=== PATIENT | female | born 1960 | race African-American/Black ===

== ENCOUNTER 2017-08-20 08:35 | Inpatient (IN) | payer OTHER ==
[2017-08-20 10:45] VITALS: BMI 26.3
--- NOTE | 2017-08-20 12:13 | HP ---
CIWA Score - CIWA Score Nausea/Vomitin-No Nausea/No Vomiting Muscle Tremors: 4-Moderate,w/Arms Extend Anxiety: 4-Mod. Anxious/Guarded Agitation: 2 Paroxysmal Sweats: 3 Orientation: 0-Oriented Tacttile Disturbances: 0-None Auditory Disturbances: 0-None Visual Disturbances: 0-None Headache: 3-Moderate CIWA-Ar Total Score: 16 Admission ROS S - HPI Chief Complaint: "I need to Detox." Patient is here to Detox from Alcohol. Allergies/Adverse Reactions: Allergies Allergy/AdvReac Type Severity Reaction Status Date / Time No Known Drug Allergies Allergy Verified 08/20/17 11:15 pork AdvReac Uncoded 08/20/17 11:15 History of Present Illness: Patient is a 56 YO female here to Detox from Alcohol. Patient has had one previous Detox admission at [facility] (02/2016). Patient had a Detox admission in [facility] (unable to recall name of facility) in 2017. Longest period of sobriety in recent years: (2007 - 2010). Exam Limitations: No Limitations - Ebola screening Have you traveled outside of the country in the last 21 days: No (N) Have you had contact with anyone from an Ebola affected area: No Have you been sick,other than usual withdrawal symptoms: No Do you have a fever: No - Review of Systems Constitutional: Diaphoresis, Fever, Malaise, Night Sweats, Changes in sleep EENT: reports: No Symptoms Reported Respiratory: reports: Cough Cardiac: reports: No Symptoms Reported GI: reports: No Symptoms Reported : reports: No Symptoms Reported Musculoskeletal: reports: Neck Pain Integumentary: reports: No Symptoms Reported Neuro: reports: Headache, Tremors Endocrine: reports: No Symptoms Reported Hematology: reports: No Symptoms Reported Psychiatric: reports: No Sypmtoms Reported, Judgement Intact, Mood/Affect Appropiate, Orientated x3, Anxious, Depressed (Meds. in past, none currently.) Other Systems: Reviewed and Negative Patient History - Patient Medical History Hx Anemia: No Hx Asthma: Yes (Uses MDI.) Hx Chronic Obstructive Pulmonary Disease (COPD): No Hx Cancer: Yes (Cervical, 1995, Partial hysterectomy, laser treatment.) Hx Cardiac Disorders: No Hx Congestive Heart Failure: No Hx Hypertension: Yes (On med.) Hx Hypercholesterolemia: No Hx Pacemaker: No HX Cerebrovascular Accident: No Hx Seizures: No Hx Dementia: No Hx Diabetes: No Hx Gastrointestinal Disorders: No Hx Liver Disease: No Hx Genitourinary Disorders: No Hx Sexually Transmitted Disorders: No Hx Renal Disease (ESRD): No Hx Thyroid Disease: No Hx Human Immunodeficiency Virus (HIV): No (Last tested: 06/2017: NEGATIVE.) Hx Hepatitis C: No (Never Tested.) Hx Depression: Yes (Meds. in past, none currently.) Hx Suicide Attempt: No (PATIENT DENIES CURRENT SI / HI.) Hx Bipolar Disorder: Yes (Meds. in past, none currently.) Hx Schizophrenia: No Other Medical History: DENIES. - Patient Surgical History Past Surgical History: No Hx Neurologic Surgery: No Hx Cataract Extraction: Yes (LEFT EYE, 2009.) Hx Cardiac Surgery: No Hx Lung Surgery: No Hx Breast Surgery: No Hx Breast Biopsy: No Hx Abdominal Surgery: Yes (VAGINAL HERNIA (2); 1995, 1996) Hx Appendectomy: No Hx Cholecystectomy: No Hx Genitourinary Surgery: No Hx Section: No Hx Orthopedic Surgery: No Hx Hysterectomy: Yes (PARTIAL, 1994.) Other Surgical History: CERVICAL CA X 2 1994 PARTIAL HYSTERECTOMY Anesthesia Reaction: No - PPD History Previous Implant?: Yes Documented Results: Negative w/o proof Implanted On Prior [facility] Admission?: Yes Date: 02/29/16 PPD to be Administered?: Yes - Reproductive History Patient is a Female of Child Bearing Age (11 -55 yrs old): No LMP comment: 1994. Patient : No - Smoking Cessation Smoking history: Never smoked Have you smoked in the past 12 months: No Cigars Per Day: 0 Hx Chewing Tobacco Use: No Initiated information on smoking cessation: No - Substances Abused Alcohol Route: Oral Frequency: Daily Amount used: 1 PINT VODKA , 07/06OZ BEER Age of first use: 18 Date of Last Use: 08/20/17 Crack Route: Smoking Frequency: Daily Amount used: $30 Age of first use: 25 Date of Last Use: 08/20/17 Family Disease History - Family Disease History Family Disease History: CA: Father (PROSTATE; .), Mother (OVARIAN; .), Brother (PROSTATE; .), Sister (BREAST; . ), Other: Grandparent (ARTHRITIS.) Admission Physical Exam BHS - Vital Signs Vital Signs: Vital Signs - 24 hr 08/20/17 10:35 Temperature 97.4 F L Pulse Rate 77 Respiratory 18 Rate Blood Pressure 157/93 - Physical General Appearance: Yes: No Apparent Distress, Nourished, Appropriately Dressed , Tremorous, Anxious HEENTM: Yes: Hearing grossly Normal, Normocephalic, Normal Voice, SAMANTHA, Pharynx Normal Respiratory: Yes: Chest Non-Tender, Lungs Clear, No Respiratory Distress, No Accessory Muscle Use Neck: Yes: No masses,lesions,Nodules, Supple, Trachea in good position Breast: Yes: Breast Exam Deferred Cardiology: Yes: Regular Rhythm, Regular Rate, S1, S2 Abdominal: Yes: Normal Bowel Sounds, Non Tender, Flat, Soft Genitourinary: Yes: Within Normal Limits Back: Yes: Normal Inspection Musculoskeletal: Yes: full range of Motion, Gait Steady Extremities: Yes: Normal Capillary Refill, Normal Range of Motion, Non-Tender, Tremors Neurological: Yes: Fully Oriented, Alert, Normal Mood/Affect, Normal Response Integumentary: Yes: Normal Color, Dry, Warm Lymphatic: Yes: Within Normal Limits - Diagnostic (1) Cocaine dependence, uncomplicated Current Visit: Yes Status: Acute (2) Alcohol dependence with withdrawal Current Visit: Yes Status: Acute Qualifiers: Complication of substance-induced condition: uncomplicated Qualified Code(s ): F10.230 - Alcohol dependence with withdrawal, uncomplicated (3) Asthma Current Visit: Yes Status: Chronic Qualifiers: Asthma severity: mild Asthma persistence: intermittent Asthma complication type: uncomplicated Qualified Code(s): J45.20 - Mild intermittent asthma, uncomplicated (4) Hypertension Current Visit: Yes Status: Chronic Qualifiers: Hypertension type: essential hypertension Qualified Code(s): I10 - Essential (primary) hypertension (5) History of cervical cancer Current Visit: Yes Status: Resolved (6) History of partial hysterectomy Current Visit: Yes Status: Resolved Cleared for Admission S - Detox or Rehab [facility] Level of Care: Medically Managed Detox Regimen/Protocol: Librium [facility] Breath Alcohol Content Breath Alcohol Content: 0 Urine Pregancy Test - Result Urine Test Results: Negative- NO Line Present Urine Drug Screen - Results Drug Screen Negative: No Urine Drug Screen Results: MARTIN-Cocaine
[2017-08-20] MEDS ORDERED: MAGNESIUM HYDROX 2400MG/30ML ORAL SUSPENSION 30 ML CUP PO PRN (12:33)
[2017-08-20] MEDS ORDERED: MAGNESIUM CITRATE 300 ML BOTTLE PO PRN (12:33)
[2017-08-20] MEDS ORDERED: chlordiazePOXIDE HCL 25 MG CAPSULE PO PRN (12:33)
[2017-08-20] MEDS ORDERED: MAG HYDROX/AL HYDROX/SIMETH 30 ML UNIT-DOSE CUP PO PRN (12:33)
[2017-08-20] MEDS ORDERED: MENTHOL/PHENOL 1 EACH UD MM PRN (12:33)
[2017-08-20] MEDS ORDERED: IBUPROFEN 400 MG TABLET (FP) PO PRN (12:33)
[2017-08-20] MEDS ORDERED: P-EPHED 60MG/TRIPROLIDI 2.5MG TABLET PO PRN (12:33)
[2017-08-20] MEDS ORDERED: guaiFENesin/D-METHORPHAN HB 10 ML UNIT-DOSE CUPS PO PRN (12:33)
[2017-08-20] MEDS ORDERED: ACETAMINOPHEN 325 MG TABLET (FP) PO PRN (12:33)
[2017-08-20] MEDS ORDERED: LOPERAMIDE HCL 2 MG CAPSULE PO PRN (12:33)
[2017-08-20] MEDS ORDERED: ALBUTEROL SO4 18 GM HFA INHALER IH PRN (12:36)
[2017-08-20] MEDS ORDERED: chlordiazePOXIDE HCL 25 MG CAPSULE PO ONE (12:50)
--- NOTE | 2017-08-20 13:33 | CONSULT ---
[facility] Psychiatric Consult - Data Date of interview: 08/20/17 Admission source: [facility] Identifying data: This is a 56 years old female, mother of two, living with family, unemployed , on SSI with psychiatric hospitalization history, here for Detox from Alcohol and Crack. Substance Abuse History: - Smoking Cessation. Smoking history: Never smoked. Have you smoked in the past 12 months: No. Cigars Per Day: 0. Hx Chewing Tobacco Use: No. Initiated information on smoking cessation: No. - Substances Abused. Alcohol. Route: Oral. Frequency: Daily. Amount used: 1 PINT VODKA , 2/12OZ BEER. Age of first use: 18. Date of Last Use: 08/20/17. Crack. Route: Smoking. Frequency: Daily. Amount used: $30. Age of first use : 25. Date of Last Use: 08/20/17 Medical History: Asthma, HTN, Cervical Cancer history, s/p Hysterectomy. Psychiatric History: Lois reports history of depression withy most recent [id number] admission on [facility] 7 years ago, reports no medications taking prior to admission. As per computer carries Bipolar I Disorder history Physical/Sexual Abuse/Trauma History: Denies Additional Comment: Observation. Detox Unit Care Protocol Mental Status Exam - Mental Status Exam Alert and Oriented to: Place, Person Cognitive Function: Fair Patient Appearance: Well Groomed Mood: Apprehensive Affect: Mood Congruent Patient Behavior: Cooperative Speech Pattern: Appropriate Voice Loudness: Normal Thought Process: Goal Oriented Thought Disorder: Being Controlled Hallucinations: Denies Suicidal Ideation: Denies Homicidal Ideation: Denies Insight/Judgement: Fair Sleep: Difficulty falling asleep Appetite: Fair Muscle strength/Tone: Normal Gait/Station: Normal Additional Comments: Observation. Detox Unit Care Protocol Psychiatric Findings - Problem List ([place] 1, 2,3) (1) Drug-induced mood disorder Current Visit: Yes Status: Acute (2) Alcohol dependence with withdrawal Current Visit: Yes Status: Acute Qualifiers: Complication of substance-induced condition: uncomplicated Qualified Code(s ): F10.230 - Alcohol dependence with withdrawal, uncomplicated (3) Cocaine dependence, uncomplicated Current Visit: Yes Status: Acute (4) Cocaine dependence Current Visit: No Status: Acute Qualifiers: Substance use status: uncomplicated Qualified Code(s): F14.20 - Cocaine dependence, uncomplicated (5) Bipolar 1 disorder, depressed Current Visit: No Status: Suspected - Initial Treatment Plan Initial Treatment Plan: Observation. Detox Unit Care Protocol
[2017-08-20 14:40] LABS: HEMATOCRIT 40.3 % (32.4-45.2); HEMOGLOBIN 13.2 GM/dL (10.7-15.3); MCH 27.2 pg (25.7-33.7); MCHC 32.8 g/dl (32.0-36.0); MEAN CELL VOLUME 82.8 fl (80-96); MEAN PLT VOLUME 9.7 fl (7.5-11.1); PLATELET COUNT 253 K/MM3 (134-434); RBC 4.87 M/mm3 (3.60-5.2); RDW 15.8 % (11.6-15.6); WHITE BLOOD COUNT 5.7 K/mm3 (4.0-10.0)
[2017-08-20 14:46] LABS: ALBUMIN 3.8 g/dl (3.4-5.0); ANION GAP 10 (8-16); BLOOD UREA NITROGEN 15 mg/dL (7-18); CALCIUM 9.3 mg/dL (8.5-10.1); CHLORIDE 106 mmol/L (98-107); CO2 28 mmol/L (21-32); GLUCOSE,RANDOM 86 mg/dL (74-106); POTASSIUM 3.8 mmol/L (3.5-5.1); SGOT/AST 12 U/L (15-37); SGPT/ALT 14 U/L (12-78); SODIUM 144 mmol/L (136-145)
[2017-08-20 14:49] LABS: ALK PHOS 129 U/L (45-117); BILIRUBIN,TOTAL 0.3 mg/dL (0.2-1.0); TOT PROT 7.3 g/dl (6.4-8.2)
--- NOTE | 2017-08-20 15:53 | EKG ---
Test Reason : Blood Pressure : / mmHG Vent. Rate : 076 BPM Atrial Rate : 076 BPM P-R Int : 132 ms QRS Dur : 096 ms QT Int : 432 ms P-R-T Axes : 059 065 052 degrees QTc Int : 486 ms NORMAL SINUS RHYTHM POSSIBLE LEFT ATRIAL ENLARGEMENT LEFT VENTRICULAR HYPERTROPHY PROLONGED QT ABNORMAL ECG NO PREVIOUS ECGS AVAILABLE Confirmed by YANET CASTANEDA MD ([id number]) on 08/20/2017 3:53:09 PM Referred By: Confirmed By:YANET CASTANEDA MD
[2017-08-20] MEDS: chlordiazePOXIDE HCL 25 MG CAPSULE PO SCH ×2 (17:42→22:38)
[2017-08-20] MEDS: THIAMINE HCL 100 MG TABLET (FP) PO SCH (22:38)
[2017-08-21 01:43] LABS: URINE APPEARANCE CLEAR; URINE BILIRUBIN NEGATIVE (<2.0 mg/dL); URINE BLOOD 1+ (NEGATIVE); URINE COLOR YELLOW; URINE GLUCOSE (UA) NEGATIVE (NEGATIVE); URINE KETONE NEGATIVE (NEGATIVE); URINE LEUK ESTERASE NEGATIVE (NEGATIVE); URINE NITRITE NEGATIVE (NEGATIVE); URINE PROTEIN NEGATIVE (NEGATIVE); URINE UROBILINOGEN NEGATIVE mg/dL (0.2-1.0)
[2017-08-21 01:56] LABS: EPI CELLS RARE /HPF (FEW); URINE BACTERIA RARE /hpf (NONE SEEN)
[2017-08-21] MEDS: chlordiazePOXIDE HCL 25 MG CAPSULE PO SCH ×4 (06:58→23:03)
[2017-08-21] MEDS: PRENATAL VITAMINS W/ FOLIC ACID TABLET (FP) PO SCH (10:45)
[2017-08-21] MEDS: amLODIPine BESYLATE 10 MG TABLET (FP) PO SCH (10:45)
[2017-08-21] MEDS: VALSARTAN 160 MG TABLET (UD) PO SCH (10:45)
--- NOTE | 2017-08-21 12:10 | PN ---
S CIWA - CIWA Score Nausea/Vomitin Muscle Tremors: 2 Anxiety: 2 Agitation: 2 Paroxysmal Sweats: 3 Orientation: 0-Oriented Tacttile Disturbances: 1-Very Mild Itch/Numbness Auditory Disturbances: 0-None Visual Disturbances: 0-None Headache: 0-None Present CIWA-Ar Total Score: 12 BHS Progress Note (SOAP) Subjective: interrupted sleep, sweats Objective: 08/21/17 12:09 Vital Signs Temperature 97.7 F 08/21/17 10:00 Pulse Rate 86 08/21/17 10:00 Respiratory Rate 16 08/21/17 10:00 Blood Pressure 141/87 08/21/17 10:00 O2 Sat by Pulse Oximetry (%) Laboratory Tests 08/20/17 08/20/17 08/20/17 12:00 12:00 12:00 WBC 5.7 RBC 4.87 Hgb 13.2 Hct 40.3 MCV 82.8 MCH 27.2 MCHC 32.8 RDW 15.8 H Plt Count 253 MPV 9.7 Sodium 144 Potassium 3.8 Chloride 106 Carbon Dioxide 28 Anion Gap 10 BUN 15 Creatinine 1.0 Creat Clearance w eGFR 57.35 Random Glucose 86 Calcium 9.3 Total Bilirubin 0.3 D AST 12 L ALT 14 Alkaline Phosphatase 129 H Total Protein 7.3 Albumin 3.8 Urine Color Urine Appearance Urine pH Ur Specific [place] Urine Protein Urine Glucose (UA) Urine Ketones Urine Blood Urine Nitrite Urine Bilirubin Urine Urobilinogen Ur Leukocyte Esterase Urine WBC (Auto) Urine RBC (Auto) Ur Epithelial Cells Urine Bacteria RPR Titer Nonreactive 08/21/17 00:37 WBC RBC Hgb Hct MCV MCH MCHC RDW Plt Count MPV Sodium Potassium Chloride Carbon Dioxide Anion Gap BUN Creatinine Creat Clearance w eGFR Random Glucose Calcium Total Bilirubin AST ALT Alkaline Phosphatase Total Protein Albumin Urine Color Yellow Urine Appearance Clear Urine pH 5.0 Ur Specific [place] 1.028 Urine Protein Negative Urine Glucose (UA) Negative Urine Ketones Negative Urine Blood 1+ H Urine Nitrite Negative Urine Bilirubin Negative Urine Urobilinogen Negative Ur Leukocyte Esterase Negative Urine WBC (Auto) 1 Urine RBC (Auto) 15 Ur Epithelial Cells Rare Urine Bacteria Rare RPR Titer pt aox3 in nad ambulating Assessment: 08/21/17 12:10 withdrawal sx's Plan: cont. detox increase fluids
[2017-08-21] MEDS: THIAMINE HCL 100 MG TABLET (FP) PO SCH (23:03)
[2017-08-22] MEDS: chlordiazePOXIDE HCL 25 MG CAPSULE PO SCH ×2 (07:15→10:49)
[2017-08-22] MEDS: VALSARTAN 160 MG TABLET (UD) PO SCH (10:49)
[2017-08-22] MEDS: PRENATAL VITAMINS W/ FOLIC ACID TABLET (FP) PO SCH (10:49)
[2017-08-22] MEDS: amLODIPine BESYLATE 10 MG TABLET (FP) PO SCH (10:49)
--- NOTE | 2017-08-22 16:24 | PN ---
S CIWA - CIWA Score Nausea/Vomitin Muscle Tremors: 3 Anxiety: 3 Agitation: 2 Paroxysmal Sweats: 1-Minimal Palms Moist Orientation: 0-Oriented Tacttile Disturbances: 1-Very Mild Itch/Numbness Auditory Disturbances: 1-Very Mild Visual Disturbances: 0-None Headache: 2-Mild CIWA-Ar Total Score: 16 S Progress Note (SOAP) Subjective: ALERT,IRRITABLE,ANXIOUS,INTERRUPTED SLEEP,TREMOR Objective: 08/22/17 16:23 Vital Signs Temperature 97.7 F 08/22/17 15:19 Pulse Rate 105 H 08/22/17 15:19 Respiratory Rate 18 08/22/17 15:19 Blood Pressure 114/69 08/22/17 15:19 O2 Sat by Pulse Oximetry (%) Laboratory Last Values WBC 5.7 K/mm3 (4.0-10.0) 08/20/17 12:00 RBC 4.87 M/mm3 (3.60-5.2) 08/20/17 12:00 Hgb 13.2 GM/dL (10.7-15.3) 08/20/17 12:00 Hct 40.3 % (32.4-45.2) 08/20/17 12:00 MCV 82.8 fl (80-96) 08/20/17 12:00 MCH 27.2 pg (25.7-33.7) 08/20/17 12:00 MCHC 32.8 g/dl (32.0-36.0) 08/20/17 12:00 RDW 15.8 % (11.6-15.6) H 08/20/17 12:00 Plt Count 253 K/MM3 (134-434) 08/20/17 12:00 MPV 9.7 fl (7.5-11.1) 08/20/17 12:00 Sodium 144 mmol/L (136-145) 08/20/17 12:00 Potassium 3.8 mmol/L (3.5-5.1) 08/20/17 12:00 Chloride 106 mmol/L (98-107) 08/20/17 12:00 Carbon Dioxide 28 mmol/L (21-32) 08/20/17 12:00 Anion Gap 10 (8-16) 08/20/17 12:00 BUN 15 mg/dL (7-18) 08/20/17 12:00 Creatinine 1.0 mg/dL (0.55-1.02) 08/20/17 12:00 Creat Clearance w eGFR 57.35 (>60) 08/20/17 12:00 Random Glucose 86 mg/dL (74-106) 08/20/17 12:00 Calcium 9.3 mg/dL (8.5-10.1) 08/20/17 12:00 Total Bilirubin 0.3 mg/dL (0.2-1.0) D 08/20/17 12:00 AST 12 U/L (15-37) L 08/20/17 12:00 ALT 14 U/L (12-78) 08/20/17 12:00 Alkaline Phosphatase 129 U/L (45-117) H 08/20/17 12:00 Total Protein 7.3 g/dl (6.4-8.2) 08/20/17 12:00 Albumin 3.8 g/dl (3.4-5.0) 08/20/17 12:00 Urine Color Yellow 08/21/17 00:37 Urine Appearance Clear 08/21/17 00:37 Urine pH 5.0 (5.0-8.0) 08/21/17 00:37 Ur Specific [place] 1.028 (1.001-1.035) 08/21/17 00:37 Urine Protein Negative (NEGATIVE) 08/21/17 00:37 Urine Glucose (UA) Negative (NEGATIVE) 08/21/17 00:37 Urine Ketones Negative (NEGATIVE) 08/21/17 00:37 Urine Blood 1+ (NEGATIVE) H 08/21/17 00:37 Urine Nitrite Negative (NEGATIVE) 08/21/17 00:37 Urine Bilirubin Negative (<2.0 mg/dL) 08/21/17 00:37 Urine Urobilinogen Negative mg/dL (0.2-1.0) 08/21/17 00:37 Ur Leukocyte Esterase Negative (NEGATIVE) 08/21/17 00:37 Urine WBC (Auto) 1 /hpf (3-5) 08/21/17 00:37 Urine RBC (Auto) 15 /hpf (0-3) 08/21/17 00:37 Ur Epithelial Cells Rare /HPF (FEW) 08/21/17 00:37 Urine Bacteria Rare /hpf (NONE SEEN) 08/21/17 00:37 RPR Titer Nonreactive (NONREACTIVE) 08/20/17 12:00 Assessment: 08/22/17 16:23 WITHDRAWAL SYMPTOM Plan: CONTINUE DETOX,REPEAT UA
[2017-08-22] MEDS: chlordiazePOXIDE 5 MG CAPSULE PO SCH ×2 (17:56→22:37)
[2017-08-22] MEDS: MELATONIN 5 MG TABLETS PO PRN (22:37)
[2017-08-22] MEDS: THIAMINE HCL 100 MG TABLET (FP) PO SCH (22:37)
[2017-08-23] MEDS: chlordiazePOXIDE 5 MG CAPSULE PO SCH ×2 (06:56→10:20)
--- NOTE | 2017-08-23 09:59 | PN ---
BHS Progress Note (SOAP) Subjective: feeling better no tremor less sweat tolerates food and fluid well Objective: 08/23/17 09:58 Vital Signs Temperature 96.8 F L 08/23/17 07:44 Pulse Rate 66 08/23/17 07:44 Respiratory Rate 18 08/23/17 07:44 Blood Pressure 146/87 08/23/17 07:44 O2 Sat by Pulse Oximetry (%) Laboratory Last Values WBC 5.7 K/mm3 (4.0-10.0) 08/20/17 12:00 RBC 4.87 M/mm3 (3.60-5.2) 08/20/17 12:00 Hgb 13.2 GM/dL (10.7-15.3) 08/20/17 12:00 Hct 40.3 % (32.4-45.2) 08/20/17 12:00 MCV 82.8 fl (80-96) 08/20/17 12:00 MCH 27.2 pg (25.7-33.7) 08/20/17 12:00 MCHC 32.8 g/dl (32.0-36.0) 08/20/17 12:00 RDW 15.8 % (11.6-15.6) H 08/20/17 12:00 Plt Count 253 K/MM3 (134-434) 08/20/17 12:00 MPV 9.7 fl (7.5-11.1) 08/20/17 12:00 Sodium 144 mmol/L (136-145) 08/20/17 12:00 Potassium 3.8 mmol/L (3.5-5.1) 08/20/17 12:00 Chloride 106 mmol/L (98-107) 08/20/17 12:00 Carbon Dioxide 28 mmol/L (21-32) 08/20/17 12:00 Anion Gap 10 (8-16) 08/20/17 12:00 BUN 15 mg/dL (7-18) 08/20/17 12:00 Creatinine 1.0 mg/dL (0.55-1.02) 08/20/17 12:00 Creat Clearance w eGFR 57.35 (>60) 08/20/17 12:00 Random Glucose 86 mg/dL (74-106) 08/20/17 12:00 Calcium 9.3 mg/dL (8.5-10.1) 08/20/17 12:00 Total Bilirubin 0.3 mg/dL (0.2-1.0) D 08/20/17 12:00 AST 12 U/L (15-37) L 08/20/17 12:00 ALT 14 U/L (12-78) 08/20/17 12:00 Alkaline Phosphatase 129 U/L (45-117) H 08/20/17 12:00 Total Protein 7.3 g/dl (6.4-8.2) 08/20/17 12:00 Albumin 3.8 g/dl (3.4-5.0) 08/20/17 12:00 Urine Color Yellow 08/21/17 00:37 Urine Appearance Clear 08/21/17 00:37 Urine pH 5.0 (5.0-8.0) 08/21/17 00:37 Ur Specific [place] 1.028 (1.001-1.035) 08/21/17 00:37 Urine Protein Negative (NEGATIVE) 08/21/17 00:37 Urine Glucose (UA) Negative (NEGATIVE) 08/21/17 00:37 Urine Ketones Negative (NEGATIVE) 08/21/17 00:37 Urine Blood 1+ (NEGATIVE) H 08/21/17 00:37 Urine Nitrite Negative (NEGATIVE) 08/21/17 00:37 Urine Bilirubin Negative (<2.0 mg/dL) 08/21/17 00:37 Urine Urobilinogen Negative mg/dL (0.2-1.0) 08/21/17 00:37 Ur Leukocyte Esterase Negative (NEGATIVE) 08/21/17 00:37 Urine WBC (Auto) 1 /hpf (3-5) 08/21/17 00:37 Urine RBC (Auto) 15 /hpf (0-3) 08/21/17 00:37 Ur Epithelial Cells Rare /HPF (FEW) 08/21/17 00:37 Urine Bacteria Rare /hpf (NONE SEEN) 08/21/17 00:37 RPR Titer Nonreactive (NONREACTIVE) 08/20/17 12:00 lab noted Assessment: 08/23/17 09:58 mild withdrawal sx Plan: medically supervised detox
[2017-08-23] MEDS: PRENATAL VITAMINS W/ FOLIC ACID TABLET (FP) PO SCH (10:20)
[2017-08-23] MEDS: amLODIPine BESYLATE 10 MG TABLET (FP) PO SCH (10:20)
[2017-08-23] MEDS: VALSARTAN 160 MG TABLET (UD) PO SCH (10:20)
[2017-08-23] MEDS: chlordiazePOXIDE HCL 10 MG CAPSULE PO SCH ×2 (17:55→22:12)
[2017-08-23] MEDS: MELATONIN 5 MG TABLETS PO PRN (22:12)
[2017-08-23] MEDS: THIAMINE HCL 100 MG TABLET (FP) PO SCH (22:12)
[2017-08-24] MEDS: chlordiazePOXIDE HCL 10 MG CAPSULE PO SCH (05:43)
[2017-08-24 06:06] VITALS: BP 125/74; PULSE 74; TEMP 97.5
--- NOTE | 2017-08-24 08:48 | DS ---
[facility] Detox Discharge Summary Admission Date: 08/20/17 Discharge Date: 08/24/17 - History Present History: Alcohol Dependence Additional Comments: patient left the facility prior to the resume writer arrived to the unit - Physical Exam Results Vital Signs: Vital Signs Temperature 97.5 F L 08/24/17 06:00 Pulse Rate 74 08/24/17 06:00 Respiratory Rate 18 08/24/17 06:00 Blood Pressure 125/74 08/24/17 06:00 O2 Sat by Pulse Oximetry (%) Pertinent Admission Physical Exam Findings: withdrawal sx Vital Signs Temperature 97.5 F L 08/24/17 06:00 Pulse Rate 74 08/24/17 06:00 Respiratory Rate 18 08/24/17 06:00 Blood Pressure 125/74 08/24/17 06:00 O2 Sat by Pulse Oximetry (%) Laboratory Last Values WBC 5.7 K/mm3 (4.0-10.0) 08/20/17 12:00 RBC 4.87 M/mm3 (3.60-5.2) 08/20/17 12:00 Hgb 13.2 GM/dL (10.7-15.3) 08/20/17 12:00 Hct 40.3 % (32.4-45.2) 08/20/17 12:00 MCV 82.8 fl (80-96) 08/20/17 12:00 MCH 27.2 pg (25.7-33.7) 08/20/17 12:00 MCHC 32.8 g/dl (32.0-36.0) 08/20/17 12:00 RDW 15.8 % (11.6-15.6) H 08/20/17 12:00 Plt Count 253 K/MM3 (134-434) 08/20/17 12:00 MPV 9.7 fl (7.5-11.1) 08/20/17 12:00 Sodium 144 mmol/L (136-145) 08/20/17 12:00 Potassium 3.8 mmol/L (3.5-5.1) 08/20/17 12:00 Chloride 106 mmol/L (98-107) 08/20/17 12:00 Carbon Dioxide 28 mmol/L (21-32) 08/20/17 12:00 Anion Gap 10 (8-16) 08/20/17 12:00 BUN 15 mg/dL (7-18) 08/20/17 12:00 Creatinine 1.0 mg/dL (0.55-1.02) 08/20/17 12:00 Creat Clearance w eGFR 57.35 (>60) 08/20/17 12:00 Random Glucose 86 mg/dL (74-106) 08/20/17 12:00 Calcium 9.3 mg/dL (8.5-10.1) 08/20/17 12:00 Total Bilirubin 0.3 mg/dL (0.2-1.0) D 08/20/17 12:00 AST 12 U/L (15-37) L 08/20/17 12:00 ALT 14 U/L (12-78) 08/20/17 12:00 Alkaline Phosphatase 129 U/L (45-117) H 08/20/17 12:00 Total Protein 7.3 g/dl (6.4-8.2) 08/20/17 12:00 Albumin 3.8 g/dl (3.4-5.0) 08/20/17 12:00 Urine Color Yellow 08/21/17 00:37 Urine Appearance Clear 08/21/17 00:37 Urine pH 5.0 (5.0-8.0) 08/21/17 00:37 Ur Specific [place] 1.028 (1.001-1.035) 08/21/17 00:37 Urine Protein Negative (NEGATIVE) 08/21/17 00:37 Urine Glucose (UA) Negative (NEGATIVE) 08/21/17 00:37 Urine Ketones Negative (NEGATIVE) 08/21/17 00:37 Urine Blood 1+ (NEGATIVE) H 08/21/17 00:37 Urine Nitrite Negative (NEGATIVE) 08/21/17 00:37 Urine Bilirubin Negative (<2.0 mg/dL) 08/21/17 00:37 Urine Urobilinogen Negative mg/dL (0.2-1.0) 08/21/17 00:37 Ur Leukocyte Esterase Negative (NEGATIVE) 08/21/17 00:37 Urine WBC (Auto) 1 /hpf (3-5) 08/21/17 00:37 Urine RBC (Auto) 15 /hpf (0-3) 08/21/17 00:37 Ur Epithelial Cells Rare /HPF (FEW) 03/30/18 00:37 Urine Bacteria Rare /hpf (NONE SEEN) 08/21/17 00:37 RPR Titer Nonreactive (NONREACTIVE) 08/20/17 12:00 lab noted - Treatment Hospital Course: Detox Protocol Followed, Detoxed Safely, Responded well, Discharged Condition Good, Rehab Referral Accepted Patient has Accepted a Rehab Referral to: [facility] - Medication Discharge Medications: Ambulatory Orders Albuterol Sulfate Inhaler - [Ventolin HFA Inhaler -] 1 - 2 inh PO Q4H PRN #1 inhaler 08/23/17 Amlodipine Besylate/Valsartan [Amlodipine-Valsartan 10-320 mg] 1 each PO DAILY # 30 tablet 08/23/17 - Diagnosis (1) Alcohol dependence with withdrawal Status: Acute Qualifiers: Complication of substance-induced condition: uncomplicated Qualified Code(s ): F10.230 - Alcohol dependence with withdrawal, uncomplicated (2) Asthma Status: Chronic Qualifiers: Asthma severity: mild Asthma persistence: intermittent Asthma complication type: uncomplicated Qualified Code(s): J45.20 - Mild intermittent asthma, uncomplicated (3) Hypertension Status: Chronic Qualifiers: Hypertension type: essential hypertension Qualified Code(s): I10 - Essential (primary) hypertension - AMA Did Patient Leave Against Medical Advice: No
== END 2017-08-24 07:09 | disposition home or self-care (01) | DRG 774 ==
LOC: YASAS 08:35 → Y6N 12:30
PROVIDERS: ADMIT Internal Medicine; ATTEND Internal Medicine
PROC: HZ2ZZZZ Detoxification Services for Substance Abuse Treatment (ICD-10-PCS; principal; 2017-08-20)
DX: F10.230 Alcohol dependence with withdrawal, uncomplicated (principal); F14.20 Cocaine dependence, uncomplicated; F19.24 Other psychoactive substance dependence with psychoactive substance-induced mood disorder; F31.9 Bipolar disorder, unspecified; I10 Essential (primary) hypertension; J45.20 Mild intermittent asthma, uncomplicated; Z85.41 Personal history of malignant neoplasm of cervix uteri; Z90.710 Acquired absence of both cervix and uterus
CPT/HCPCS: 36415; 80053; 81003; 81015; 85027; 86593; 93005; 93010

== ENCOUNTER 2017-10-06 08:17 | Inpatient (IN) | payer OTHER ==
[2017-10-06 09:30] VITALS: BMI 27.1
--- NOTE | 2017-10-06 12:10 | HP ---
CIWA Score - CIWA Score Nausea/Vomitin Muscle Tremors: 3 Anxiety: 3 Agitation: 3 Paroxysmal Sweats: 2 Orientation: 0-Oriented Tacttile Disturbances: 1-Very Mild Itch/Numbness Auditory Disturbances: 1-Very Mild Visual Disturbances: 0-None Headache: 2-Mild CIWA-Ar Total Score: 18 Admission ROS BHS - HPI Chief Complaint: i need help to stop drinking alcohol and cocaine Allergies/Adverse Reactions: Allergies Allergy/AdvReac Type Severity Reaction Status Date / Time No Known Allergies Allergy Verified 10/06/17 09:43 History of Present Illness: this 56 years old female with alcohol and cocaine dependence,withdrawal symptom, seeking detox,last treatment [facility] 08/20/17 to 08/24/17 hypertension on med bipolar disorder,insomnia,no medication longest period of sobriety 3 years Exam Limitations: No Limitations - Ebola screening Have you traveled outside of the country in the last 21 days: No Have you had contact with anyone from an Ebola affected area: No Have you been sick,other than usual withdrawal symptoms: No - Review of Systems Constitutional: Loss of Appetite, Malaise, Night Sweats, Changes in sleep, Weakness EENT: reports: Nose Congestion Respiratory: reports: Other (asthma) Cardiac: reports: No Symptoms Reported GI: reports: Nausea, Abdominal cramping : reports: No Symptoms Reported Musculoskeletal: reports: Back Pain, Muscle Pain Integumentary: reports: Dryness Endocrine: reports: No Symptoms Reported Hematology: reports: No Symptoms Reported Psychiatric: reports: No Sypmtoms Reported, Judgement Intact, Mood/Affect Appropiate, Orientated x3, other (bipolar disorder) Patient History - Patient Medical History Hx Anemia: No Hx Asthma: Yes Hx Chronic Obstructive Pulmonary Disease (COPD): No Hx Cancer: Yes (Cervical, 1995, Partial hysterectomy, laser treatment.) Hx Cardiac Disorders: Yes Hx Congestive Heart Failure: No Hx Hypertension: Yes (ON MEDICATIONS) Hx Hypercholesterolemia: No Hx Pacemaker: No HX Cerebrovascular Accident: No Hx Seizures: No Hx Dementia: No Hx Diabetes: No Hx Gastrointestinal Disorders: No Hx Liver Disease: No Hx Genitourinary Disorders: No Hx Sexually Transmitted Disorders: No Hx Renal Disease (ESRD): No Hx Thyroid Disease: No Hx Human Immunodeficiency Virus (HIV): No (Last tested: 06/2017: NEGATIVE.) Hx Hepatitis C: No Hx Depression: Yes Hx Suicide Attempt: No Hx Bipolar Disorder: Yes (Meds. in past, none currently.) Hx Schizophrenia: No Other Medical History: no suicidal,no homicidal - Patient Surgical History Past Surgical History: Yes Hx Neurologic Surgery: No Hx Cataract Extraction: Yes (LEFT EYE, 2009.) Hx Cardiac Surgery: No Hx Lung Surgery: No Hx Breast Surgery: No Hx Breast Biopsy: No Hx Abdominal Surgery: Yes (VAGINAL HERNIA (2); 1995, 1996) Hx Appendectomy: No Hx Cholecystectomy: No Hx Genitourinary Surgery: No Hx Section: No Hx Orthopedic Surgery: No Hx Hysterectomy: Yes (PARTIAL, 1994.) Other Surgical History: CERVICAL CA X 2 1994 PARTIAL HYSTERECTOMY Anesthesia Reaction: No - PPD History Previous Implant?: Yes Documented Results: Negative w/proof Implanted On Prior [facility] Admission?: Yes Date: 08/22/17 Results: NEGATIVE PPD to be Administered?: No - Reproductive History Last Menstrual Period: 10/22/94 Patient : No - Smoking Cessation Smoking history: Never smoked Have you smoked in the past 12 months: No Cigars Per Day: 0 Hx Chewing Tobacco Use: No - Substance & Tx. History Hx Alcohol Use: Yes Hx Substance Use: Yes Substance Use Type: Alcohol, Cocaine - Substances Abused Alcohol Route: Oral Frequency: Daily Amount used: 2 bottles of 40 ounces beer: 2 (12 OZ CANS OF BEER), 1/2 PINT OF RUM/VODKA Age of first use: 18 Date of Last Use: 10/06/17 Cocaine Route: Smoking Frequency: Daily Amount used: 5 BAGS DAILY Age of first use: 25 Date of Last Use: 10/06/17 Family Disease History - Family Disease History Family Disease History: CA: Father (PROSTATE; .), Mother (OVARIAN; .), Brother (PROSTATE; .), Sister (BREAST; . ), Other: Grandparent (ARTHRITIS.) Admission Physical Exam S - Vital Signs Vital Signs: Vital Signs - 24 hr 10/06/17 09:19 Temperature 98.3 F Pulse Rate 77 Respiratory 20 Rate Blood Pressure 144/85 - Physical General Appearance: Yes: Moderate Distress, Tremorous, Irritable, Sweating, Anxious HEENTM: Yes: Normal ENT Inspection, SAMANTHA, Pharynx Normal Respiratory: Yes: Within Normal Limits, Lungs Clear, Normal Breath Sounds Neck: Yes: Within Normal Limits, Supple, Trachea in good position Breast: Yes: Breast Exam Deferred Cardiology: Yes: Within Normal Limits, Regular Rhythm, Regular Rate, S1, S2, Murmur Abdominal: Yes: Within Normal Limits, Normal Bowel Sounds, Non Tender, Soft Genitourinary: Yes: Within Normal Limits Back: Yes: Muscle Spasm Musculoskeletal: Yes: full range of Motion, Back pain, Muscle Pain Extremities: Yes: Within Normal Limits, Tremors Neurological: Yes: Within Normal Limits, porcelain enameler II-XII NML intact, Fully Oriented, Alert, Motor Strength 5/5 Integumentary: Yes: Dry Lymphatic: Yes: Within Normal Limits - Diagnostic (1) Alcohol dependence with withdrawal Current Visit: Yes Status: Acute Qualifiers: Complication of substance-induced condition: uncomplicated Qualified Code(s ): F10.230 - Alcohol dependence with withdrawal, uncomplicated (2) Cocaine dependence, uncomplicated Current Visit: No Status: Acute (3) Arthritis Current Visit: No Status: Chronic (4) Asthma Current Visit: No Status: Chronic Qualifiers: Asthma severity: mild Asthma persistence: intermittent Asthma complication type: uncomplicated Qualified Code(s): J45.20 - Mild intermittent asthma, uncomplicated (5) Chronic back pain Current Visit: No Status: Chronic Qualifiers: Back pain location: low back pain Back pain laterality: unspecified Sciatica presence: without sciatica Qualified Code(s): M54.5 - Low back pain; G89.29 - Other chronic pain; G89.29 - Other chronic pain (6) Heart murmur previously undiagnosed Current Visit: No Status: Chronic (7) Hypertension Current Visit: No Status: Chronic Qualifiers: Hypertension type: essential hypertension Qualified Code(s): I10 - Essential (primary) hypertension (8) Bipolar 1 disorder, depressed Current Visit: No Status: Suspected Cleared for Admission S - Detox or Rehab [facility] Level of Care: Medically Managed Detox Regimen/Protocol: Librium [facility] Breath Alcohol Content Breath Alcohol Content: 0 Urine Pregancy Test - Result Urine Test Results: Negative- NO Line Present Urine Drug Screen - Results Drug Screen Negative: No Urine Drug Screen Results: MARTIN-Cocaine
[2017-10-06] MEDS ORDERED: MENTHOL/PHENOL 1 EACH UD MM PRN (12:19)
[2017-10-06] MEDS ORDERED: guaiFENesin/D-METHORPHAN HB 10 ML UNIT-DOSE CUPS PO PRN (12:19)
[2017-10-06] MEDS ORDERED: chlordiazePOXIDE HCL 25 MG CAPSULE PO PRN (12:19)
[2017-10-06] MEDS ORDERED: MAGNESIUM HYDROX 2400MG/30ML ORAL SUSPENSION 30 ML CUP PO PRN (12:19)
[2017-10-06] MEDS ORDERED: P-EPHED 60MG/TRIPROLIDI 2.5MG TABLET PO PRN (12:19)
[2017-10-06] MEDS ORDERED: hydrOXYzine PAMOATE 50 MG CAPSULE (FP) PO PRN (12:19)
[2017-10-06] MEDS ORDERED: MAGNESIUM CITRATE 300 ML BOTTLE PO PRN (12:19)
[2017-10-06] MEDS ORDERED: MAG HYDROX/AL HYDROX/SIMETH 30 ML UNIT-DOSE CUP PO PRN (12:19)
[2017-10-06] MEDS ORDERED: IBUPROFEN 400 MG TABLET (FP) PO PRN (12:19)
[2017-10-06] MEDS ORDERED: LOPERAMIDE HCL 2 MG CAPSULE PO PRN (12:19)
[2017-10-06] MEDS ORDERED: ACETAMINOPHEN 325 MG TABLET (FP) PO PRN (12:19)
[2017-10-06] MEDS ORDERED: ALBUTEROL SO4 18 GM HFA INHALER IH PRN (12:21)
[2017-10-06] MEDS ORDERED: chlordiazePOXIDE HCL 25 MG CAPSULE PO ONE (13:15)
[2017-10-06] MEDS ORDERED: cloNIDine HCL 0.1 MG TABLET PO ONE (14:00)
--- NOTE | 2017-10-06 16:49 | CONSULT ---
[facility] Psychiatric Consult - Data Date of interview: 10/06/17 Admission source: [facility] Identifying data: Patient is a 56 year old female, mother of two, unemployed, living with , and supported by [facility]. This is one of multiple admissions for patient. Patient admitted to for alcohol and cocaine dependence. Substance Abuse History: Following information confirmed with Ms. Jacobo: Smoking Cessation. Smoking history: Never smoked. Have you smoked in the past 12 months: No. Cigars Per Day: 0. Hx Chewing Tobacco Use: No. - Substance & Tx. History. Hx Alcohol Use: Yes. Hx Substance Use: Yes. Substance Use Type: Alcohol, Cocaine. - Substances Abused. Alcohol. Route: Oral. Frequency: Daily. Amount used: 2 bottles of 40 ounces beer: 2 (12 OZ CANS OF BEER), 1/2 PINT OF RUM/VODKA. Age of first use: 18. Date of Last Use: 10/06/17. Cocaine. Route: Smoking. Frequency: Daily. Amount used: 5 BAGS DAILY. Age of first use: 25. Date of Last Use: 10/06/17 Medical History: cataract extraction left eye 2009, Vaginal hernia -1995, 1996, Cervical, 1994, Partial hysterectomy, laser treatment, Hypertension Psychiatric History: Patient reports three psychiatric hospitalizations, most recently in 2009 at [facility] for depression. Pt. is also know to [facility]. Pt. reports nonadherent to medications and outpatient care. Reports most recently taking psychotophic medications over one year ago. States she has been prescribed trazodone + cymbalta "and other medications." Reports h/ o bipolar disorder. Pt. denies h/o suicide attempt. Physical/Sexual Abuse/Trauma History: Denies. Mental Status Exam - Mental Status Exam Alert and Oriented to: Time, Place, Person Cognitive Function: Good Patient Appearance: Well Groomed Mood: Hopeful Affect: Mood Congruent Patient Behavior: Cooperative Speech Pattern: Appropriate Voice Loudness: Normal Thought Process: Intact, Goal Oriented Thought Disorder: Not Present Hallucinations: Denies Suicidal Ideation: Denies Homicidal Ideation: Denies Insight/Judgement: Poor Sleep: Poorly Appetite: Fair Muscle strength/Tone: Normal Gait/Station: Normal Psychiatric Findings - Problem List ([place] 1, 2,3) (1) Alcohol dependence with withdrawal Current Visit: Yes Status: Acute Qualifiers: Complication of substance-induced condition: uncomplicated Qualified Code(s ): F10.230 - Alcohol dependence with withdrawal, uncomplicated (2) Cocaine dependence Current Visit: Yes Status: Acute Qualifiers: Substance use status: uncomplicated Qualified Code(s): F14.20 - Cocaine dependence, uncomplicated (3) Drug-induced mood disorder Current Visit: Yes Status: Acute (4) Bipolar 1 disorder, depressed Current Visit: No Status: Suspected (5) Insomnia Current Visit: Yes Status: Acute - Initial Treatment Plan Initial Treatment Plan: Psychoeducation provided. Detoxification in progress. Trazodone 50mg qhs ordered. Benefits and side effects discussed. Verbal consent given.
--- NOTE | 2017-10-06 17:09 | EKG ---
Test Reason : Blood Pressure : / mmHG Vent. Rate : 064 BPM Atrial Rate : 064 BPM P-R Int : 138 ms QRS Dur : 098 ms QT Int : 456 ms P-R-T Axes : 020 060 048 degrees QTc Int : 470 ms NORMAL SINUS RHYTHM VOLTAGE CRITERIA FOR LEFT VENTRICULAR HYPERTROPHY ABNORMAL ECG WHEN COMPARED WITH ECG OF 20-AUG-2017 14:11, NO SIGNIFICANT CHANGE WAS FOUND Confirmed by MD IESHA, TAMEKA ([id number]) on 10/06/2017 5:09:02 PM Referred By: Confirmed By:TAMEKA JULIAN MD
[2017-10-06] MEDS: chlordiazePOXIDE HCL 25 MG CAPSULE PO SCH ×2 (18:11→22:12)
[2017-10-06] MEDS: THIAMINE HCL 100 MG TABLET (FP) PO SCH (22:12)
[2017-10-06] MEDS: traZODone HCL 50 MG TABLET (FP) PO SCH (22:12)
[2017-10-06] MEDS: MELATONIN 5 MG TABLETS PO PRN (22:12)
[2017-10-06 23:21] LABS: URINE APPEARANCE TURBID; URINE BILIRUBIN NEGATIVE (<2.0 mg/dL); URINE COLOR YELLOW; URINE GLUCOSE (UA) NEGATIVE (NEGATIVE); URINE KETONE NEGATIVE (NEGATIVE); URINE LEUK ESTERASE NEGATIVE (NEGATIVE); URINE NITRITE NEGATIVE (NEGATIVE); URINE PROTEIN NEGATIVE (NEGATIVE); URINE UROBILINOGEN NEGATIVE mg/dL (0.2-1.0)
[2017-10-06 23:31] LABS: CALCIUM OXALATE CRYSTALS RARE /hpf (NONE SEEN); EPI CELLS RARE /HPF (FEW); URINE MUCUS RARE
[2017-10-07] MEDS: chlordiazePOXIDE HCL 25 MG CAPSULE PO SCH ×4 (06:08→22:55)
[2017-10-07] MEDS ORDERED: PATIENT'S OWN MEDICATION (NON-FORMULARY) (Amlodipine Besylate/Valsartan [Amlodipine-Valsar PO SCH (10:00)
[2017-10-07 10:25] LABS: HEMATOCRIT 42.1 % (32.4-45.2); HEMOGLOBIN 13.8 GM/dL (10.7-15.3); MCH 27.6 pg (25.7-33.7); MCHC 32.8 g/dl (32.0-36.0); MEAN CELL VOLUME 84.1 fl (80-96); MEAN PLT VOLUME 10.1 fl (7.5-11.1); PLATELET COUNT 285 K/MM3 (134-434); WHITE BLOOD COUNT 5.3 K/mm3 (4.0-10.0)
[2017-10-07 10:30] LABS: CHLORIDE 107 mmol/L (98-107); POTASSIUM 4.4 mmol/L (3.5-5.1); SODIUM 143 mmol/L (136-145)
[2017-10-07] MEDS: amLODIPine BESYLATE 10 MG TABLET (FP) PO SCH (10:42)
[2017-10-07] MEDS: VALSARTAN 160 MG TABLET (UD) PO SCH (10:42)
[2017-10-07] MEDS: PRENATAL VITAMINS W/ FOLIC ACID TABLET (FP) PO SCH (10:42)
[2017-10-07 12:00] LABS: ALBUMIN 3.7 g/dl (3.4-5.0); ALK PHOS 131 U/L (45-117); BILIRUBIN,TOTAL 1.3 mg/dL (0.2-1.0); BLOOD UREA NITROGEN 18 mg/dL (7-18); CALCIUM 8.7 mg/dL (8.5-10.1); CREATININE 1.1 mg/dL (0.55-1.02); GLUCOSE,RANDOM 124 mg/dL (74-106); SGOT/AST 14 U/L (15-37); SGPT/ALT 15 U/L (12-78); TOT PROT 7.3 g/dl (6.4-8.2)
--- NOTE | 2017-10-07 12:16 | PN ---
[facility] CIWA - CIWA Score Nausea/Vomitin-Mild Nausea/No Vomiting Muscle Tremors: 4-Moderate,w/Arms Extend Anxiety: 4-Mod. Anxious/Guarded Agitation: 4-Moderately Restless Paroxysmal Sweats: 1-Minimal Palms Moist Orientation: 0-Oriented Tacttile Disturbances: 0-None Auditory Disturbances: 0-None Visual Disturbances: 0-None Headache: 0-None Present CIWA-Ar Total Score: 14 S Progress Note (SOAP) Subjective: swet tremor anxiety restlessness trouble sleep at night gi distress Objective: 10/07/17 12:15 Vital Signs Temperature 96.9 F L 10/07/17 10:26 Pulse Rate 68 10/07/17 10:26 Respiratory Rate 20 10/07/17 10:26 Blood Pressure 142/85 10/07/17 10:26 O2 Sat by Pulse Oximetry (%) Laboratory Last Values WBC 5.3 K/mm3 (4.0-10.0) 10/07/17 06:00 RBC 5.00 M/mm3 (3.60-5.2) 10/07/17 06:00 Hgb 13.8 GM/dL (10.7-15.3) 10/07/17 06:00 Hct 42.1 % (32.4-45.2) 10/07/17 06:00 MCV 84.1 fl (80-96) 10/07/17 06:00 MCH 27.6 pg (25.7-33.7) 10/07/17 06:00 MCHC 32.8 g/dl (32.0-36.0) 10/07/17 06:00 RDW 16.0 % (11.6-15.6) H 10/07/17 06:00 Plt Count 285 K/MM3 (134-434) 10/07/17 06:00 MPV 10.1 fl (7.5-11.1) 10/07/17 06:00 Sodium 143 mmol/L (136-145) 10/07/17 06:00 Potassium 4.4 mmol/L (3.5-5.1) 10/07/17 06:00 Chloride 107 mmol/L (98-107) 10/07/17 06:00 BUN 18 mg/dL (7-18) 10/07/17 06:00 Creatinine 1.1 mg/dL (0.55-1.02) H 10/07/17 06:00 Creat Clearance w eGFR 51.38 (>60) 10/07/17 06:00 Random Glucose 124 mg/dL (74-106) H 10/07/17 06:00 Calcium 8.7 mg/dL (8.5-10.1) 10/07/17 06:00 Total Bilirubin 1.3 mg/dL (0.2-1.0) H D 10/07/17 06:00 AST 14 U/L (15-37) L 10/07/17 06:00 ALT 15 U/L (12-78) 10/07/17 06:00 Alkaline Phosphatase 131 U/L (45-117) H 10/07/17 06:00 Total Protein 7.3 g/dl (6.4-8.2) 10/07/17 06:00 Albumin 3.7 g/dl (3.4-5.0) 10/07/17 06:00 Urine Color Yellow 10/06/17 23:03 Urine Appearance Turbid 10/06/17 23:03 Urine pH 5.0 (5.0-8.0) 10/06/17 23:03 Ur Specific [place] 1.028 (1.001-1.035) 10/06/17 23:03 Urine Protein Negative (NEGATIVE) 10/06/17 23:03 Urine Glucose (UA) Negative (NEGATIVE) 10/06/17 23:03 Urine Ketones Negative (NEGATIVE) 10/06/17 23:03 Urine Blood 1+ (NEGATIVE) H 10/06/17 23:03 Urine Nitrite Negative (NEGATIVE) 10/06/17 23: Urine Bilirubin Negative (<2.0 mg/dL) 10/06/17 23:03 Urine Urobilinogen Negative mg/dL (0.2-1.0) 10/06/17 23:03 Ur Leukocyte Esterase Negative (NEGATIVE) 10/06/17 23:03 Urine WBC (Auto) None /hpf (3-5) 10/06/17 23:03 Urine RBC (Auto) None /hpf (0-3) 10/06/17 23:03 Ur Epithelial Cells Rare /HPF (FEW) 10/06/17 23:03 Calcium Oxalate Crystal Rare /hpf (NONE SEEN) 10/06/17 23:03 Urine Mucus Rare 10/06/17 23:03 lab noted Assessment: 10/07/17 12:16 withdrawal sx Plan: continue detox
[2017-10-07 12:24] LABS: ANION GAP 8 (8-16); CO2 28 mmol/L (21-32)
[2017-10-07] MEDS: traZODone HCL 50 MG TABLET (FP) PO SCH (22:54)
[2017-10-07] MEDS: THIAMINE HCL 100 MG TABLET (FP) PO SCH (22:55)
[2017-10-08] MEDS: chlordiazePOXIDE HCL 25 MG CAPSULE PO SCH ×2 (06:05→10:32)
[2017-10-08] MEDS: PRENATAL VITAMINS W/ FOLIC ACID TABLET (FP) PO SCH (10:32)
[2017-10-08] MEDS: amLODIPine BESYLATE 10 MG TABLET (FP) PO SCH (10:32)
[2017-10-08] MEDS: VALSARTAN 160 MG TABLET (UD) PO SCH (10:33)
--- NOTE | 2017-10-08 12:10 | PN ---
S CIWA - CIWA Score Nausea/Vomitin-Mild Nausea/No Vomiting Muscle Tremors: 3 Anxiety: 3 Agitation: 3 Paroxysmal Sweats: 1-Minimal Palms Moist Orientation: 0-Oriented Tacttile Disturbances: 1-Very Mild Itch/Numbness Auditory Disturbances: 0-None Visual Disturbances: 0-None Headache: 0-None Present CIWA-Ar Total Score: 12 BHS Progress Note (SOAP) Subjective: sweat tremor anxiety restlessness trouble sleep at night Objective: 10/08/17 12:10 Vital Signs Temperature 97.5 F L 10/08/17 10:27 Pulse Rate 75 10/08/17 10:27 Respiratory Rate 16 10/08/17 10:27 Blood Pressure 126/84 10/08/17 10:27 O2 Sat by Pulse Oximetry (%) Laboratory Last Values WBC 5.3 K/mm3 (4.0-10.0) 10/07/17 06:00 RBC 5.00 M/mm3 (3.60-5.2) 10/07/17 06:00 Hgb 13.8 GM/dL (10.7-15.3) 10/07/17 06:00 Hct 42.1 % (32.4-45.2) 10/07/17 06:00 MCV 84.1 fl (80-96) 10/07/17 06:00 MCH 27.6 pg (25.7-33.7) 10/07/17 06:00 MCHC 32.8 g/dl (32.0-36.0) 10/07/17 06:00 RDW 16.0 % (11.6-15.6) H 10/07/17 06:00 Plt Count 285 K/MM3 (134-434) 10/07/17 06:00 MPV 10.1 fl (7.5-11.1) 10/07/17 06:00 Sodium 143 mmol/L (136-145) 10/07/17 06:00 Potassium 4.4 mmol/L (3.5-5.1) 10/07/17 06:00 Chloride 107 mmol/L (98-107) 10/07/17 06:00 Carbon Dioxide 28 mmol/L (21-32) 10/07/17 06:00 Anion Gap 8 (8-16) 10/07/17 06:00 BUN 18 mg/dL (7-18) 10/07/17 06:00 Creatinine 1.1 mg/dL (0.55-1.02) H 10/07/17 06:00 Creat Clearance w eGFR 51.38 (>60) 10/07/17 06:00 Random Glucose 124 mg/dL (74-106) H 10/07/17 06:00 Calcium 8.7 mg/dL (8.5-10.1) 10/07/17 06:00 Total Bilirubin 1.3 mg/dL (0.2-1.0) H D 10/07/17 06:00 AST 14 U/L (15-37) L 10/07/17 06:00 ALT 15 U/L (12-78) 10/07/17 06:00 Alkaline Phosphatase 131 U/L (45-117) H 10/07/17 06:00 Total Protein 7.3 g/dl (6.4-8.2) 10/07/17 06:00 Albumin 3.7 g/dl (3.4-5.0) 10/07/17 06:00 Urine Color Yellow 10/06/17 23:03 Urine Appearance Turbid 10/06/17 23:03 Urine pH 5.0 (5.0-8.0) 10/06/17 23:03 Ur Specific [place] 1.028 (1.001-1.035) 10/06/17 23:03 Urine Protein Negative (NEGATIVE) 10/06/17 23:03 Urine Glucose (UA) Negative (NEGATIVE) 10/06/17 23:03 Urine Ketones Negative (NEGATIVE) 10/06/17 23:03 Urine Blood 1+ (NEGATIVE) H 10/06/17 23:03 Urine Nitrite Negative (NEGATIVE) 10/06/17 23:03 Urine Bilirubin Negative (<2.0 mg/dL) 10/06/17 23:03 Urine Urobilinogen Negative mg/dL (0.2-1.0) 10/06/17 23:03 Ur Leukocyte Esterase Negative (NEGATIVE) 10/06/17 23:03 Urine WBC (Auto) None /hpf (3-5) 10/06/17 23:03 Urine RBC (Auto) None /hpf (0-3) 10/06/17 23:03 Ur Epithelial Cells Rare /HPF (FEW) 10/06/17 23:03 Calcium Oxalate Crystal Rare /hpf (NONE SEEN) 10/06/17 23:03 Urine Mucus Rare 10/06/17 23:03 RPR Titer Nonreactive (NONREACTIVE) 10/07/17 06:00 lab noted Assessment: 10/08/17 12:11 withdrawal sx Plan: continue detox
[2017-10-08] MEDS: chlordiazePOXIDE 5 MG CAPSULE PO SCH ×2 (18:10→22:19)
[2017-10-08] MEDS: THIAMINE HCL 100 MG TABLET (FP) PO SCH (22:19)
[2017-10-08] MEDS: traZODone HCL 50 MG TABLET (FP) PO SCH (22:19)
[2017-10-09] MEDS: chlordiazePOXIDE 5 MG CAPSULE PO SCH ×2 (06:14→10:12)
--- NOTE | 2017-10-09 10:09 | PN ---
BHS Progress Note (SOAP) Subjective: feeling better no sweat no tremor tolerated food and fluid well sleep better at n ight Objective: 10/09/17 10:08 Vital Signs Temperature 97.5 F L 10/09/17 09:53 Pulse Rate 75 10/09/17 09:53 Respiratory Rate 20 10/09/17 09:53 Blood Pressure 144/95 10/09/17 09:53 O2 Sat by Pulse Oximetry (%) Laboratory Last Values WBC 5.3 K/mm3 (4.0-10.0) 10/07/17 06:00 RBC 5.00 M/mm3 (3.60-5.2) 10/07/17 06:00 Hgb 13.8 GM/dL (10.7-15.3) 10/07/17 06:00 Hct 42.1 % (32.4-45.2) 10/07/17 06:00 MCV 84.1 fl (80-96) 10/07/17 06:00 MCH 27.6 pg (25.7-33.7) 10/07/17 06:00 MCHC 32.8 g/dl (32.0-36.0) 10/07/17 06:00 RDW 16.0 % (11.6-15.6) H 10/07/17 06:00 Plt Count 285 K/MM3 (134-434) 10/07/17 06:00 MPV 10.1 fl (7.5-11.1) 10/07/17 06:00 Sodium 143 mmol/L (136-145) 10/07/17 06:00 Potassium 4.4 mmol/L (3.5-5.1) 10/07/17 06:00 Chloride 107 mmol/L (98-107) 10/07/17 06:00 Carbon Dioxide 28 mmol/L (21-32) 10/07/17 06:00 Anion Gap 8 (8-16) 10/07/17 06:00 BUN 18 mg/dL (7-18) 10/07/17 06:00 Creatinine 1.1 mg/dL (0.55-1.02) H 10/07/17 06:00 Creat Clearance w eGFR 51.38 (>60) 10/07/17 06:00 Random Glucose 124 mg/dL (74-106) H 10/07/17 06:00 Calcium 8.7 mg/dL (8.5-10.1) 10/07/17 06:00 Total Bilirubin 1.3 mg/dL (0.2-1.0) H D 10/07/17 06:00 AST 14 U/L (15-37) L 10/07/17 06:00 ALT 15 U/L (12-78) 10/07/17 06:00 Alkaline Phosphatase 131 U/L (45-117) H 10/07/17 06:00 Total Protein 7.3 g/dl (6.4-8.2) 10/07/17 06:00 Albumin 3.7 g/dl (3.4-5.0) 10/07/17 06:00 Urine Color Yellow 10/06/17 23:03 Urine Appearance Turbid 10/06/17 23:03 Urine pH 5.0 (5.0-8.0) 10/06/17 23:03 Ur Specific [place] 1.028 (1.001-1.035) 10/06/17 23:03 Urine Protein Negative (NEGATIVE) 10/06/17 23:03 Urine Glucose (UA) Negative (NEGATIVE) 10/06/17 23:03 Urine Ketones Negative (NEGATIVE) 10/06/17 23:03 Urine Blood 1+ (NEGATIVE) H 10/06/17 23:03 Urine Nitrite Negative (NEGATIVE) 10/06/17 23:03 Urine Bilirubin Negative (<2.0 mg/dL) 10/06/17 23:03 Urine Urobilinogen Negative mg/dL (0.2-1.0) 10/06/17 23:03 Ur Leukocyte Esterase Negative (NEGATIVE) 10/06/17 23:03 Urine WBC (Auto) None /hpf (3-5) 10/06/17 23:03 Urine RBC (Auto) None /hpf (0-3) 10/06/17 23:03 Ur Epithelial Cells Rare /HPF (FEW) 10/06/17 23:03 Calcium Oxalate Crystal Rare /hpf (NONE SEEN) 10/06/17 23:03 Urine Mucus Rare 10/06/17 23:03 RPR Titer Nonreactive (NONREACTIVE) 10/07/17 06:00 lab noted 10/09/17 10:09 gfr 51.28 Assessment: 10/09/17 10:10 mild withdrawal sx renal insufficient Plan: medically supervised detox strong recommend follow up with primary care physician for hypertension and asthma management
[2017-10-09] MEDS: VALSARTAN 160 MG TABLET (UD) PO SCH (10:11)
[2017-10-09] MEDS: PRENATAL VITAMINS W/ FOLIC ACID TABLET (FP) PO SCH (10:12)
[2017-10-09] MEDS: amLODIPine BESYLATE 10 MG TABLET (FP) PO SCH (10:12)
[2017-10-09] MEDS: chlordiazePOXIDE HCL 10 MG CAPSULE PO SCH ×2 (17:38→22:16)
[2017-10-09] MEDS: MELATONIN 5 MG TABLETS PO PRN (22:16)
[2017-10-09] MEDS: THIAMINE HCL 100 MG TABLET (FP) PO SCH (22:16)
[2017-10-09] MEDS: traZODone HCL 50 MG TABLET (FP) PO SCH (22:16)
[2017-10-10] MEDS: chlordiazePOXIDE HCL 10 MG CAPSULE PO SCH (06:06)
[2017-10-10] MEDS: VALSARTAN 160 MG TABLET (UD) PO SCH (06:55)
[2017-10-10] MEDS: amLODIPine BESYLATE 10 MG TABLET (FP) PO SCH (06:56)
[2017-10-10 06:59] VITALS: BP 147/100; PULSE 85; TEMP 97.5
== END 2017-10-10 07:04 | disposition short-term general hospital (02) | DRG 774 ==
LOC: YASAS 08:17 → Y6N 12:34
PROVIDERS: ADMIT Surgery; ATTEND Surgery
PROC: HZ2ZZZZ Detoxification Services for Substance Abuse Treatment (ICD-10-PCS; principal; 2017-10-06)
DX: F10.230 Alcohol dependence with withdrawal, uncomplicated (principal); F14.20 Cocaine dependence, uncomplicated; F31.89 Other bipolar disorder; F19.24 Other psychoactive substance dependence with psychoactive substance-induced mood disorder; G47.00 Insomnia, unspecified; I10 Essential (primary) hypertension; Z85.41 Personal history of malignant neoplasm of cervix uteri; Z90.710 Acquired absence of both cervix and uterus
CPT/HCPCS: 36415; 80053; 81003; 81015; 85027; 86593; 93005; 93010; J0735

== ENCOUNTER 2017-12-07 08:41 | Inpatient (IN) | payer OTHER ==
[2017-12-07 10:02] VITALS: BMI 27.4
--- NOTE | 2017-12-07 10:21 | HP ---
CIWA Score - CIWA Score Nausea/Vomitin-No Nausea/No Vomiting Muscle Tremors: 1-None Visible, but [place] Anxiety: 3 Agitation: 2 Paroxysmal Sweats: 3 Orientation: 0-Oriented Tacttile Disturbances: 0-None Auditory Disturbances: 0-None Visual Disturbances: 0-None Headache: 3-Moderate CIWA-Ar Total Score: 12 Admission ROS S - [facility] Chief Complaint: ETOH WITHDRAWAL SYMPTOMS. Allergies/Adverse Reactions: Allergies Allergy/AdvReac Type Severity Reaction Status Date / Time No Known Drug Allergies Allergy Verified 12/07/17 09:56 NKA Allergy Uncoded 12/07/17 09:56 History of Present Illness: PATIENT PRESENTS WITH ETOH WITHDRAWAL SYMPTOMS. STARTED DRINKING AT AGE 18. DRINKS 1/2 PINT OF LIQUOR AND 4 12 0Z. CANS OF BEER DAILY. LAST DRINK WAS THIS MORNING. DENIES HX OF SEIZURES. LAST DETOX IN 09/[address] [facility]. PATIENT'S LONGEST PERIOD OF SOBRIETY THREE YEARS. PT ALSO SMOKES 5 BAGS OF CRACK/COCAINE DAILY X 3 YEARS. PMH INCLUDES HTN, DEPRESSION AND ASTHMA. DENIES SI/HI AND SUICIDE ATTEMPTS. Exam Limitations: No Limitations - Ebola screening Have you traveled outside of the country in the last 21 days: No Have you had contact with anyone from an Ebola affected area: No Have you been sick,other than usual withdrawal symptoms: No - Review of Systems Constitutional: Chills, Night Sweats, Changes in sleep EENT: reports: No Symptoms Reported Respiratory: reports: No Symptoms reported Cardiac: reports: No Symptoms Reported GI: reports: Poor Fluid Intake, Abdominal cramping : reports: No Symptoms Reported Musculoskeletal: reports: Back Pain Integumentary: reports: Sweating Neuro: reports: Headache, Tremors Endocrine: reports: No Symptoms Reported Hematology: reports: No Symptoms Reported Psychiatric: reports: Orientated x3, Anxious, Depressed Patient History - Patient Medical History Hx Anemia: No Hx Asthma: Yes (ON PUMP) Hx Chronic Obstructive Pulmonary Disease (COPD): No Hx Cancer: Yes (Cervical, 1995, Partial hysterectomy, laser treatment.) Hx Cardiac Disorders: Yes (HTN) Hx Congestive Heart Failure: No Hx Hypertension: Yes (ON MEDICATIONS) Hx Hypercholesterolemia: No Hx Pacemaker: No HX Cerebrovascular Accident: No Hx Seizures: No Hx Dementia: No Hx Diabetes: No Hx Gastrointestinal Disorders: No Hx Liver Disease: No Hx Genitourinary Disorders: No Hx Sexually Transmitted Disorders: No Hx Renal Disease (ESRD): No Hx Thyroid Disease: No Hx Human Immunodeficiency Virus (HIV): No (Last tested: 06/2017: NEGATIVE.) Hx Hepatitis C: No Hx Depression: Yes Hx Suicide Attempt: No Hx Bipolar Disorder: Yes (Meds. in past, none currently.) Hx Schizophrenia: No - Patient Surgical History Past Surgical History: Yes Hx Neurologic Surgery: No Hx Cataract Extraction: Yes (LEFT EYE, 2009.) Hx Cardiac Surgery: No Hx Lung Surgery: No Hx Breast Surgery: No Hx Breast Biopsy: No Hx Abdominal Surgery: Yes (VAGINAL HERNIA (2); 1995, 1996) Hx Appendectomy: No Hx Cholecystectomy: No Hx Genitourinary Surgery: No Hx Section: No Hx Orthopedic Surgery: No Hx Hysterectomy: Yes (PARTIAL, 1994.) Other Surgical History: CERVICAL CA X 2 1994 PARTIAL HYSTERECTOMY Anesthesia Reaction: No - PPD History Previous Implant?: Yes Documented Results: Negative w/proof Implanted On Prior [facility] Admission?: Yes Date: 08/22/17 Results: 0mm PPD to be Administered?: No - Reproductive History Last Menstrual Period: 10/22/94 Patient : No - Smoking Cessation Smoking history: Never smoked Have you smoked in the past 12 months: No Cigars Per Day: 0 Hx Chewing Tobacco Use: No Initiated information on smoking cessation: No - Substance & Tx. History Hx Alcohol Use: Yes Hx Substance Use: Yes Substance Use Type: Alcohol, Cocaine Hx Substance Use Treatment: Yes - Substances Abused Alcohol Route: Oral Frequency: Daily Amount used: beer- 6can- rum 1/2 pint Age of first use: 18 Date of Last Use: 12/07/17 Crack Route: Smoking Frequency: Daily Amount used: $50-5bags Age of first use: 25 Date of Last Use: 12/07/17 Family Disease History - Family Disease History Family Disease History: CA: Father (PROSTATE; .), Mother (OVARIAN; .), Brother (PROSTATE; .), Sister (BREAST; . ), Other: Grandparent (ARTHRITIS.) Admission Physical Exam BHS - Vital Signs Vital Signs: Vital Signs - 24 hr 12/07/17 09:33 Temperature 98.3 F Pulse Rate 67 Respiratory 20 Rate Blood Pressure 164/93 - Physical General Appearance: Yes: No Apparent Distress, Appropriately Dressed, Tremorous , Sweating, Anxious HEENTM: Yes: EOMI, Hearing grossly Normal, Normal ENT Inspection, Normocephalic , Normal Voice, SAMANTHA, Pharynx Normal Respiratory: Yes: Chest Non-Tender, Lungs Clear, Normal Breath Sounds, No Respiratory Distress, No Accessory Muscle Use Neck: Yes: No masses,lesions,Nodules, Supple Breast: Yes: Breast Exam Deferred Cardiology: Yes: Regular Rhythm, Regular Rate, S1, S2 Abdominal: Yes: Normal Bowel Sounds, Non Tender, Flat, Soft Genitourinary: Yes: Within Normal Limits Back: Yes: Normal Inspection, Muscle Spasm Musculoskeletal: Yes: full range of Motion, Gait Steady, Back pain Extremities: Yes: Normal Inspection, Normal Range of Motion, Non-Tender, Tremors Neurological: Yes: director of resource development II-XII NML intact, Fully Oriented, Alert, Motor Strength 5/5, Depressed Affect Integumentary: Yes: Normal Color, Warm, Moist Lymphatic: Yes: Within Normal Limits - Diagnostic (1) Alcohol dependence with withdrawal Status: Acute Qualifiers: Complication of substance-induced condition: uncomplicated Qualified Code(s ): F10.230 - Alcohol dependence with withdrawal, uncomplicated (2) Cocaine dependence Current Visit: Yes Status: Chronic Qualifiers: Substance use status: uncomplicated Qualified Code(s): F14.20 - Cocaine dependence, uncomplicated (3) Arthritis Current Visit: Yes Status: Chronic (4) Asthma Current Visit: Yes Status: Chronic Qualifiers: Asthma severity: mild Asthma persistence: intermittent Asthma complication type: uncomplicated Qualified Code(s): J45.20 - Mild intermittent asthma, uncomplicated (5) Hypertension Current Visit: Yes Status: Chronic Qualifiers: Hypertension type: essential hypertension Qualified Code(s): I10 - Essential (primary) hypertension (6) Bipolar 1 disorder, depressed Current Visit: Yes Status: Suspected Cleared for Admission S - Detox or Rehab [facility] Level of Care: Medically Managed Detox Regimen/Protocol: Librium S Breath Alcohol Content Breath Alcohol Content: 0 Urine Pregancy Test - Result Urine Test Results: Negative- NO Line Present Urine Drug Screen - Results Drug Screen Negative: No Urine Drug Screen Results: MARTIN-Cocaine
[2017-12-07] MEDS ORDERED: LOPERAMIDE HCL 2 MG CAPSULE PO PRN (10:27)
[2017-12-07] MEDS ORDERED: MAGNESIUM CITRATE 300 ML BOTTLE PO PRN (10:27)
[2017-12-07] MEDS ORDERED: MENTHOL/PHENOL 1 EACH UD MM PRN (10:27)
[2017-12-07] MEDS ORDERED: MAG HYDROX/AL HYDROX/SIMETH 30 ML UNIT-DOSE CUP PO PRN (10:27)
[2017-12-07] MEDS ORDERED: P-EPHED 60MG/TRIPROLIDI 2.5MG TABLET PO PRN (10:27)
[2017-12-07] MEDS ORDERED: ACETAMINOPHEN 325 MG TABLET (FP) PO PRN (10:27)
[2017-12-07] MEDS ORDERED: IBUPROFEN 400 MG TABLET (FP) PO PRN (10:27)
[2017-12-07] MEDS ORDERED: MAGNESIUM HYDROX 2400MG/30ML ORAL SUSPENSION 30 ML CUP PO PRN (10:27)
[2017-12-07] MEDS ORDERED: hydrOXYzine PAMOATE 50 MG CAPSULE (FP) PO PRN (10:27)
[2017-12-07] MEDS ORDERED: guaiFENesin/D-METHORPHAN HB 10 ML UNIT-DOSE CUPS PO PRN (10:27)
[2017-12-07] MEDS ORDERED: ALBUTEROL SO4 8 GM HFA INHALER IH PRN (10:29)
[2017-12-07] MEDS ORDERED: chlordiazePOXIDE HCL 25 MG CAPSULE PO PRN (10:29)
[2017-12-07] MEDS ORDERED: PATIENT'S OWN MEDICATION (NON-FORMULARY) (Amlodipine Besylate/Valsartan [Amlodipine-Valsar PO SCH (10:30)
--- NOTE | 2017-12-07 11:21 | CONSULT ---
[facility] Psychiatric Consult - Data Date of interview: 12/07/17 Admission source: [facility] Identifying data: This is 57 years old female, mother of two, living with family, unemployed, on PA, with psychiatric hospitalization history, with jistory of Bipolar Disorder, with long history of Alcohol, Crack dependence, present with Alcohol withdrawal symptoms and seeking for detox. Substance Abuse History: - Smoking Cessation. Smoking history: Never smoked. Have you smoked in the past 12 months: No. Cigars Per Day: 0. Hx Chewing Tobacco Use: No. Initiated information on smoking cessation: No. - Substance & Tx. History. Hx Alcohol Use: Yes. Hx Substance Use: Yes. Substance Use Type : Alcohol, Cocaine. Hx Substance Use Treatment: Yes. - Substances Abused. Alcohol. Route: Oral. Frequency: Daily. Amount used: beer- 6can- rum 1/2 pint. Age of first use: 18. Date of Last Use: 12/07/17. Crack. Route: Smoking. Frequency: Daily. Amount used: $50-5bags. Age of first use: 25. Date of Last Use: 12/07/17 Medical History: Asthma, HTN, Arthritis, Cervical Cancer history, Hysterectomy, LBP Psychiatric History: Patient reports history of Bipolar Disorder, reports unclear psychiatrtic admission on more then 10 years ago for safety, reports no medications taking prior to admission. Denies suiciadal and homicidal history. Physical/Sexual Abuse/Trauma History: Denies Additional Comment: Observation. Detox Unit Carte Protocol Mental Status Exam - Mental Status Exam Alert and Oriented to: Person Cognitive Function: Fair Patient Appearance: Well Groomed Mood: Anxious Affect: Mood Congruent Patient Behavior: Cooperative Speech Pattern: Appropriate Voice Loudness: Normal Thought Process: Goal Oriented Thought Disorder: Being Controlled Hallucinations: Denies Suicidal Ideation: Denies Homicidal Ideation: Denies Insight/Judgement: Fair Sleep: Difficulty falling asleep Appetite: Weight gain Muscle strength/Tone: Normal Gait/Station: Normal Additional Comments: Observation. Detox Unit Carte Protocol Psychiatric Findings - Problem List (Maxie 1, 2,3) (1) Alcohol dependence with withdrawal Current Visit: Yes Status: Acute Qualifiers: Complication of substance-induced condition: uncomplicated Qualified Code(s ): F10.230 - Alcohol dependence with withdrawal, uncomplicated (2) Arthritis Current Visit: Yes Status: Chronic (3) Asthma Current Visit: Yes Status: Chronic Qualifiers: Asthma severity: mild Asthma persistence: intermittent Asthma complication type: uncomplicated Qualified Code(s): J45.20 - Mild intermittent asthma, uncomplicated (4) Cocaine dependence Current Visit: Yes Status: Chronic Qualifiers: Substance use status: uncomplicated Qualified Code(s): F14.20 - Cocaine dependence, uncomplicated (5) Hypertension Current Visit: Yes Status: Chronic Qualifiers: Hypertension type: essential hypertension Qualified Code(s): I10 - Essential (primary) hypertension (6) Bipolar 1 disorder, depressed Current Visit: Yes Status: Suspected (7) Cocaine dependence, uncomplicated Current Visit: No Status: Acute (8) Drug-induced mood disorder Current Visit: No Status: Acute (9) Chronic back pain Current Visit: No Status: Chronic Qualifiers: Back pain location: low back pain Back pain laterality: unspecified Sciatica presence: without sciatica Qualified Code(s): M54.5 - Low back pain; G89.29 - Other chronic pain; G89.29 - Other chronic pain (10) Heart murmur previously undiagnosed Current Visit: No Status: Chronic (11) History of cervical cancer Current Visit: No Status: Resolved - Initial Treatment Plan Initial Treatment Plan: Observation. Detox Unit Carte Protocol
[2017-12-07] MEDS ORDERED: chlordiazePOXIDE HCL 25 MG CAPSULE PO ONE (12:05)
[2017-12-07] MEDS: chlordiazePOXIDE HCL 25 MG CAPSULE PO SCH ×3 (12:16→22:26)
[2017-12-07] MEDS: amLODIPine BESYLATE 10 MG TABLET (FP) PO SCH (12:19)
[2017-12-07] MEDS: VALSARTAN 160 MG TABLET (UD) PO SCH (12:19)
[2017-12-07 15:00] LABS: HEMATOCRIT 44.9 % (32.4-45.2); HEMOGLOBIN 14.3 GM/dL (10.7-15.3); MCH 26.7 pg (25.7-33.7); MCHC 31.9 g/dl (32.0-36.0); MEAN CELL VOLUME 83.6 fl (80-96); MEAN PLT VOLUME 10.1 fl (7.5-11.1); PLATELET COUNT 269 K/MM3 (134-434); RBC 5.37 M/mm3 (3.60-5.2); RDW 16.1 % (11.6-15.6); WHITE BLOOD COUNT 5.8 K/mm3 (4.0-10.0)
[2017-12-07 15:12] LABS: ALBUMIN 3.7 g/dl (3.4-5.0); ANION GAP 6 (8-16); BLOOD UREA NITROGEN 19 mg/dL (7-18); CALCIUM 9.4 mg/dL (8.5-10.1); CHLORIDE 108 mmol/L (98-107); CO2 29 mmol/L (21-32); CREATININE 1.1 mg/dL (0.55-1.02); GLUCOSE,RANDOM 71 mg/dL (74-106); SGOT/AST 15 U/L (15-37); SGPT/ALT 20 U/L (12-78); SODIUM 143 mmol/L (136-145)
[2017-12-07 15:14] LABS: ALK PHOS 148 U/L (45-117); BILIRUBIN,TOTAL 0.3 mg/dL (0.2-1.0); TOT PROT 7.3 g/dl (6.4-8.2)
[2017-12-07 17:30] LABS: URINE APPEARANCE CLEAR; URINE BILIRUBIN NEGATIVE (<2.0 mg/dL); URINE COLOR LTYELLOW; URINE GLUCOSE (UA) NEGATIVE (NEGATIVE); URINE KETONE NEGATIVE (NEGATIVE); URINE LEUK ESTERASE TRACE (NEGATIVE); URINE NITRITE NEGATIVE (NEGATIVE); URINE PROTEIN NEGATIVE (NEGATIVE); URINE UROBILINOGEN NEGATIVE mg/dL (0.2-1.0)
[2017-12-07 17:42] LABS: EPI CELLS RARE /HPF (FEW); URINE BACTERIA RARE /hpf (NONE SEEN); URINE MUCUS RARE
[2017-12-07] MEDS ORDERED: MELATONIN 5 MG TABLETS PO PRN (22:00)
[2017-12-07] MEDS: THIAMINE HCL 100 MG TABLET (FP) PO SCH (22:25)
[2017-12-08] MEDS: chlordiazePOXIDE HCL 25 MG CAPSULE PO SCH ×4 (05:30→22:17)
[2017-12-08] MEDS: amLODIPine BESYLATE 10 MG TABLET (FP) PO SCH (09:02)
[2017-12-08] MEDS: VALSARTAN 160 MG TABLET (UD) PO SCH (09:02)
[2017-12-08] MEDS: PRENATAL VITAMINS W/ FOLIC ACID TABLET (FP) PO SCH (10:33)
--- NOTE | 2017-12-08 10:55 | PN ---
S CIWA - CIWA Score Nausea/Vomitin-Mild Nausea/No Vomiting Muscle Tremors: 4-Moderate,w/Arms Extend Anxiety: 3 Agitation: 3 Paroxysmal Sweats: 1-Minimal Palms Moist Orientation: 0-Oriented Tacttile Disturbances: 0-None Auditory Disturbances: 0-None Visual Disturbances: 0-None Headache: 0-None Present CIWA-Ar Total Score: 12 BHS Progress Note (SOAP) Subjective: sweat tremor restlessness anxiety gi distress Objective: 12/08/17 10:52 Vital Signs Temperature 97.5 F L 12/08/17 09:17 Pulse Rate 68 12/08/17 09:17 Respiratory Rate 20 12/08/17 09:17 Blood Pressure 166/100 12/08/17 09:17 O2 Sat by Pulse Oximetry (%) Laboratory Last Values WBC 5.8 K/mm3 (4.0-10.0) 12/07/17 11:00 RBC 5.37 M/mm3 (3.60-5.2) H 12/07/17 11:00 Hgb 14.3 GM/dL (10.7-15.3) 12/07/17 11:00 Hct 44.9 % (32.4-45.2) 12/07/17 11:00 MCV 83.6 fl (80-96) 12/07/17 11:00 MCH 26.7 pg (25.7-33.7) 12/07/17 11:00 MCHC 31.9 g/dl (32.0-36.0) L 12/07/17 11:00 RDW 16.1 % (11.6-15.6) H 12/07/17 11:00 Plt Count 269 K/MM3 (134-434) 12/07/17 11:00 MPV 10.1 fl (7.5-11.1) 12/07/17 11:00 Sodium 143 mmol/L (136-145) 12/07/17 11:00 Potassium 4.0 mmol/L (3.5-5.1) 12/07/17 11:00 Chloride 108 mmol/L (98-107) H 12/07/17 11:00 Carbon Dioxide 29 mmol/L (21-32) 12/07/17 11:00 Anion Gap 6 (8-16) L 12/07/17 11:00 BUN 19 mg/dL (7-18) H 12/07/17 11:00 Creatinine 1.1 mg/dL (0.55-1.02) H 12/07/17 11:00 Creat Clearance w eGFR 51.20 (>60) 12/07/17 11:00 Random Glucose 71 mg/dL (74-106) L 12/07/17 11:00 Calcium 9.4 mg/dL (8.5-10.1) 12/07/17 11:00 Total Bilirubin 0.3 mg/dL (0.2-1.0) 12/07/17 11:00 AST 15 U/L (15-37) 12/07/17 11:00 ALT 20 U/L (12-78) 12/07/17 11:00 Alkaline Phosphatase 148 U/L (45-117) H 12/07/17 11:00 Total Protein 7.3 g/dl (6.4-8.2) 12/07/17 11:00 Albumin 3.7 g/dl (3.4-5.0) 12/07/17 11:00 Urine Color Ltyellow 12/07/17 16:00 Urine Appearance Clear 12/07/17 16:00 Urine pH 6.0 (5.0-8.0) 12/07/17 16:00 Ur Specific [place] 1.021 (1.001-1.035) 12/07/17 16:00 Urine Protein Negative (NEGATIVE) 12/07/17 16:00 Urine Glucose (UA) Negative (NEGATIVE) 12/07/17 16:00 Urine Ketones Negative (NEGATIVE) 12/07/17 16:00 Urine Blood Negative (NEGATIVE) 12/07/17 16:00 Urine Nitrite Negative (NEGATIVE) 12/07/17 16:00 Urine Bilirubin Negative (<2.0 mg/dL) 12/07/17 16:00 Urine Urobilinogen Negative mg/dL (0.2-1.0) 12/07/17 16:00 Ur Leukocyte Esterase Trace (NEGATIVE) 12/07/17 16:00 Urine WBC (Auto) 7 /hpf (3-5) 12/07/17 16:00 Urine RBC (Auto) 2 /hpf (0-3) 12/07/17 16:00 Ur Epithelial Cells Rare /HPF (FEW) 12/07/17 16:00 Urine Bacteria Rare /hpf (NONE SEEN) 12/07/17 16:00 Urine Mucus Rare 12/07/17 16:00 RPR Titer Nonreactive (NONREACTIVE) 12/07/17 11:00 lab noted rrepeat renal Assessment: 12/08/17 10:53 withdrawal sx Plan: continue detox
--- NOTE | 2017-12-08 11:32 | EKG ---
Test Reason : Blood Pressure : / mmHG Vent. Rate : 067 BPM Atrial Rate : 067 BPM P-R Int : 136 ms QRS Dur : 088 ms QT Int : 406 ms P-R-T Axes : 024 066 047 degrees QTc Int : 429 ms NORMAL SINUS RHYTHM POSSIBLE LEFT ATRIAL ENLARGEMENT LEFT VENTRICULAR HYPERTROPHY NONSPECIFIC T WAVE ABNORMALITY ABNORMAL ECG Confirmed by MD ISEHA, TAMEKA ([id number]) on 12/08/2017 11:32:18 AM Referred By: Confirmed By:TAMEKA JULIAN MD
[2017-12-08] MEDS: LISINOPRIL 10 MG TABLET (FP) PO SCH (16:01)
[2017-12-08] MEDS: THIAMINE HCL 100 MG TABLET (FP) PO SCH (22:17)
[2017-12-09] MEDS: chlordiazePOXIDE HCL 25 MG CAPSULE PO SCH (06:28)
[2017-12-09] MEDS: LISINOPRIL 10 MG TABLET (FP) PO SCH (10:01)
[2017-12-09] MEDS: amLODIPine BESYLATE 10 MG TABLET (FP) PO SCH (10:01)
[2017-12-09] MEDS: PRENATAL VITAMINS W/ FOLIC ACID TABLET (FP) PO SCH (10:01)
[2017-12-09] MEDS: chlordiazePOXIDE 5 MG CAPSULE PO SCH ×3 (10:02→22:01)
[2017-12-09] MEDS: VALSARTAN 160 MG TABLET (UD) PO SCH (10:02)
[2017-12-09 10:06] LABS: BLOOD UREA NITROGEN 12 mg/dL (7-18); CREATININE 0.9 mg/dL (0.55-1.02)
--- NOTE | 2017-12-09 10:07 | PN ---
S CIWA - CIWA Score Nausea/Vomitin-Mild Nausea/No Vomiting Muscle Tremors: 4-Moderate,w/Arms Extend Anxiety: 3 Agitation: 3 Paroxysmal Sweats: 1-Minimal Palms Moist Orientation: 0-Oriented Tacttile Disturbances: 0-None Auditory Disturbances: 0-None Visual Disturbances: 0-None Headache: 0-None Present CIWA-Ar Total Score: 12 BHS Progress Note (SOAP) Subjective: sweat tremor restlessness trouble sleep at night Objective: 12/09/17 10:06 Vital Signs Temperature 97.1 F L 12/09/17 09:19 Pulse Rate 71 12/09/17 09:19 Respiratory Rate 20 12/09/17 09:19 Blood Pressure 146/91 12/09/17 09:19 O2 Sat by Pulse Oximetry (%) Laboratory Last Values WBC 5.8 K/mm3 (4.0-10.0) 12/07/17 11:00 RBC 5.37 M/mm3 (3.60-5.2) H 12/07/17 11:00 Hgb 14.3 GM/dL (10.7-15.3) 12/07/17 11:00 Hct 44.9 % (32.4-45.2) 12/07/17 11:00 MCV 83.6 fl (80-96) 12/07/17 11:00 MCH 26.7 pg (25.7-33.7) 12/07/17 11:00 MCHC 31.9 g/dl (32.0-36.0) L 12/07/17 11:00 RDW 16.1 % (11.6-15.6) H 12/07/17 11:00 Plt Count 269 K/MM3 (134-434) 12/07/17 11:00 MPV 10.1 fl (7.5-11.1) 12/07/17 11:00 Sodium 143 mmol/L (136-145) 12/07/17 11:00 Potassium 4.0 mmol/L (3.5-5.1) 12/07/17 11:00 Chloride 108 mmol/L (98-107) H 12/07/17 11:00 Carbon Dioxide 29 mmol/L (21-32) 12/07/17 11:00 Anion Gap 6 (8-16) L 12/07/17 11:00 BUN 19 mg/dL (7-18) H 12/07/17 11:00 Creatinine 1.1 mg/dL (0.55-1.02) H 12/07/17 11:00 Creat Clearance w eGFR 51.20 (>60) 12/07/17 11:00 Random Glucose 71 mg/dL (74-106) L 12/07/17 11:00 Calcium 9.4 mg/dL (8.5-10.1) 12/07/17 11:00 Total Bilirubin 0.3 mg/dL (0.2-1.0) 12/07/17 11:00 AST 15 U/L (15-37) 12/07/17 11:00 ALT 20 U/L (12-78) 12/07/17 11:00 Alkaline Phosphatase 148 U/L (45-117) H 12/07/17 11:00 Total Protein 7.3 g/dl (6.4-8.2) 12/07/17 11:00 Albumin 3.7 g/dl (3.4-5.0) 12/07/17 11:00 Urine Color Ltyellow 12/07/17 16:00 Urine Appearance Clear 12/07/17 16:00 Urine pH 6.0 (5.0-8.0) 12/07/17 16:00 Ur Specific [place] 1.021 (1.001-1.035) 12/07/17 16:00 Urine Protein Negative (NEGATIVE) 12/07/17 16:00 Urine Glucose (UA) Negative (NEGATIVE) 12/07/17 16:00 Urine Ketones Negative (NEGATIVE) 12/07/17 16:00 Urine Blood Negative (NEGATIVE) 12/07/17 16:00 Urine Nitrite Negative (NEGATIVE) 12/07/17 16:00 Urine Bilirubin Negative (<2.0 mg/dL) 12/07/17 16:00 Urine Urobilinogen Negative mg/dL (0.2-1.0) 12/07/17 16:00 Ur Leukocyte Esterase Trace (NEGATIVE) 12/07/17 16:00 Urine WBC (Auto) 7 /hpf (3-5) 12/07/17 16:00 Urine RBC (Auto) 2 /hpf (0-3) 12/07/17 16:00 Ur Epithelial Cells Rare /HPF (FEW) 12/07/17 16:00 Urine Bacteria Rare /hpf (NONE SEEN) 12/07/17 16:00 Urine Mucus Rare 12/07/17 16:00 RPR Titer Nonreactive (NONREACTIVE) 12/07/17 11:00 lab noted repeat renal pending 12/09/17 10:07 Assessment: 12/09/17 10:07 withdrawal sx Plan: continue detox
[2017-12-09] MEDS: THIAMINE HCL 100 MG TABLET (FP) PO SCH (22:01)
[2017-12-10] MEDS: chlordiazePOXIDE 5 MG CAPSULE PO SCH (06:49)
--- NOTE | 2017-12-10 10:22 | PN ---
BHS Progress Note (SOAP) Subjective: FEELING BETTER LESS SWEAT NO TREMOR NO GI DISTRESS DISCUSS AFTERCARE Objective: 12/10/17 10:18 Vital Signs Temperature 97.7 F 12/10/17 08:00 Pulse Rate 68 12/10/17 08:00 Respiratory Rate 18 12/10/17 08:00 Blood Pressure 139/96 12/10/17 08:00 O2 Sat by Pulse Oximetry (%) Laboratory Last Values WBC 5.8 K/mm3 (4.0-10.0) 12/07/17 11:00 RBC 5.37 M/mm3 (3.60-5.2) H 12/07/17 11:00 Hgb 14.3 GM/dL (10.7-15.3) 12/07/17 11:00 Hct 44.9 % (32.4-45.2) 12/07/17 11:00 MCV 83.6 fl (80-96) 12/07/17 11:00 MCH 26.7 pg (25.7-33.7) 12/07/17 11:00 MCHC 31.9 g/dl (32.0-36.0) L 12/07/17 11:00 RDW 16.1 % (11.6-15.6) H 12/07/17 11:00 Plt Count 269 K/MM3 (134-434) 12/07/17 11:00 MPV 10.1 fl (7.5-11.1) 12/07/17 11:00 Sodium 143 mmol/L (136-145) 12/07/17 11:00 Potassium 4.0 mmol/L (3.5-5.1) 12/07/17 11:00 Chloride 108 mmol/L (98-107) H 12/07/17 11:00 Carbon Dioxide 29 mmol/L (21-32) 12/07/17 11:00 Anion Gap 6 (8-16) L 12/07/17 11:00 BUN 12 mg/dL (7-18) 12/09/17 07:00 Creatinine 0.9 mg/dL (0.55-1.02) 12/09/17 07:00 Creat Clearance w eGFR > 60 (>60) 12/09/17 07:00 Random Glucose 71 mg/dL (74-106) L 12/07/17 11:00 Calcium 9.4 mg/dL (8.5-10.1) 12/07/17 11:00 Total Bilirubin 0.3 mg/dL (0.2-1.0) 12/07/17 11:00 AST 15 U/L (15-37) 12/07/17 11:00 ALT 20 U/L (12-78) 12/07/17 11:00 Alkaline Phosphatase 148 U/L (45-117) H 12/07/17 11:00 Total Protein 7.3 g/dl (6.4-8.2) 12/07/17 11:00 Albumin 3.7 g/dl (3.4-5.0) 12/07/17 11:00 Urine Color Ltyellow 12/07/17 16:00 Urine Appearance Clear 12/07/17 16:00 Urine pH 6.0 (5.0-8.0) 12/07/17 16:00 Ur Specific [place] 1.021 (1.001-1.035) 12/07/17 16:00 Urine Protein Negative (NEGATIVE) 12/07/17 16:00 Urine Glucose (UA) Negative (NEGATIVE) 12/07/17 16:00 Urine Ketones Negative (NEGATIVE) 12/07/17 16:00 Urine Blood Negative (NEGATIVE) 12/07/17 16:00 Urine Nitrite Negative (NEGATIVE) 12/07/17 16:00 Urine Bilirubin Negative (<2.0 mg/dL) 12/07/17 16:00 Urine Urobilinogen Negative mg/dL (0.2-1.0) 12/07/17 16:00 Ur Leukocyte Esterase Trace (NEGATIVE) 12/07/17 16:00 Urine WBC (Auto) 7 /hpf (3-5) 12/07/17 16:00 Urine RBC (Auto) 2 /hpf (0-3) 12/07/17 16:00 Ur Epithelial Cells Rare /HPF (FEW) 12/07/17 16:00 Urine Bacteria Rare /hpf (NONE SEEN) 12/07/17 16:00 Urine Mucus Rare 12/07/17 16:00 RPR Titer Nonreactive (NONREACTIVE) 12/07/17 11:00 LAB NOTED Assessment: 12/10/17 10:20 MILD WITHDRAWAL SX Plan: MEDICALLY SUPERVISED DETOX
[2017-12-10] MEDS: VALSARTAN 160 MG TABLET (UD) PO SCH (10:36)
[2017-12-10] MEDS: amLODIPine BESYLATE 10 MG TABLET (FP) PO SCH (10:36)
[2017-12-10] MEDS: PRENATAL VITAMINS W/ FOLIC ACID TABLET (FP) PO SCH (10:36)
[2017-12-10] MEDS: LISINOPRIL 10 MG TABLET (FP) PO SCH (10:36)
[2017-12-10] MEDS: chlordiazePOXIDE HCL 10 MG CAPSULE PO SCH ×3 (10:37→22:51)
[2017-12-10 18:52] VITALS: TEMP 97.5
[2017-12-10] MEDS ORDERED: LISINOPRIL 10 MG TABLET (FP) PO SCH (22:00)
[2017-12-10] MEDS: THIAMINE HCL 100 MG TABLET (FP) PO SCH (22:50)
[2017-12-11] MEDS: chlordiazePOXIDE HCL 10 MG CAPSULE PO SCH (05:53)
[2017-12-11 06:16] VITALS: BP 140/88; PULSE 75
== END 2017-12-11 07:15 | disposition home or self-care (01) | DRG 774 ==
LOC: YASAS 08:41 → Y6N 10:37
PROVIDERS: ADMIT Surgery; ATTEND Surgery
PROC: HZ2ZZZZ Detoxification Services for Substance Abuse Treatment (ICD-10-PCS; principal; 2017-12-07)
DX: F10.230 Alcohol dependence with withdrawal, uncomplicated (principal); F14.20 Cocaine dependence, uncomplicated; F19.24 Other psychoactive substance dependence with psychoactive substance-induced mood disorder; F31.89 Other bipolar disorder; I10 Essential (primary) hypertension; J45.20 Mild intermittent asthma, uncomplicated; M12.9 Arthropathy, unspecified; M54.5 Low back pain; G89.29 Other chronic pain; R01.1 Cardiac murmur, unspecified; Z85.41 Personal history of malignant neoplasm of cervix uteri; Z90.710 Acquired absence of both cervix and uterus
CPT/HCPCS: 36415; 80053; 81003; 81015; 82565; 84520; 85027; 86593; 93005; 93010

== ENCOUNTER 2018-01-31 08:29 | Inpatient (IN) | payer OTHER ==
[2018-01-31 09:26] VITALS: BMI 27.1
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
[2018-01-31] MEDS ORDERED: ALBUTEROL SO4 8 GM HFA INHALER IH PRN (11:32)
[2018-01-31] MEDS ORDERED: MAGNESIUM HYDROX 2400MG/30ML ORAL SUSPENSION 30 ML CUP PO PRN (11:33)
[2018-01-31] MEDS ORDERED: MAG HYDROX/AL HYDROX/SIMETH 30 ML UNIT-DOSE CUP PO PRN (11:33)
[2018-01-31] MEDS ORDERED: chlordiazePOXIDE HCL 25 MG CAPSULE PO PRN (11:33)
[2018-01-31] MEDS ORDERED: ACETAMINOPHEN 325 MG TABLET (FP) PO PRN (11:33)
[2018-01-31] MEDS ORDERED: MENTHOL/PHENOL 1 EACH UD MM PRN (11:33)
[2018-01-31] MEDS ORDERED: hydrOXYzine PAMOATE 50 MG CAPSULE (FP) PO PRN (11:33)
[2018-01-31] MEDS ORDERED: MAGNESIUM CITRATE 300 ML BOTTLE PO PRN (11:33)
[2018-01-31] MEDS ORDERED: IBUPROFEN 400 MG TABLET (FP) PO PRN (11:33)
[2018-01-31] MEDS ORDERED: LOPERAMIDE HCL 2 MG CAPSULE PO PRN (11:33)
--- NOTE | 2018-01-31 11:41 | PN ---
S Progress Note Note: Pt's Bp now 151/100, HR - 70 after medication. She continues to deny other complaints other headache which she states is "bearable".
[2018-01-31] MEDS ORDERED: BACITRACIN 15 GM TUBE TOPICAL OINTMENT TP SCH (11:45)
[2018-01-31] MEDS: guaiFENesin/D-METHORPHAN HB 10 ML UNIT-DOSE CUPS PO PRN ×2 (13:31→23:08)
[2018-01-31] MEDS: P-EPHED 60MG/TRIPROLIDI 2.5MG TABLET PO SCH ×2 (13:32→23:05)
[2018-01-31 17:59] LABS: URINE APPEARANCE TURBID; URINE BILIRUBIN NEGATIVE (<2.0 mg/dL); URINE COLOR AMBER; URINE GLUCOSE (UA) NEGATIVE (NEGATIVE); URINE KETONE NEGATIVE (NEGATIVE); URINE LEUK ESTERASE NEGATIVE (NEGATIVE); URINE NITRITE NEGATIVE (NEGATIVE); URINE PROTEIN NEGATIVE (NEGATIVE); URINE UROBILINOGEN NEGATIVE mg/dL (0.2-1.0)
[2018-01-31 18:01] LABS: CALCIUM OXALATE CRYSTALS FEW /hpf (NONE SEEN); EPI CELLS RARE /HPF (FEW); URINE BACTERIA RARE /hpf (NONE SEEN); URINE MUCUS MODERATE
[2018-01-31] MEDS ORDERED: MELATONIN 5 MG TABLETS PO PRN (22:00)
[2018-01-31] MEDS: chlordiazePOXIDE HCL 25 MG CAPSULE PO SCH ×2 (23:03→23:06)
[2018-01-31] MEDS: BACITRACIN 0.9 GM PACKET TP SCH (23:05)
[2018-01-31] MEDS: THIAMINE HCL 100 MG TABLET (FP) PO SCH (23:05)
[2018-02-01] MEDS: chlordiazePOXIDE HCL 25 MG CAPSULE PO SCH ×4 (06:02→22:32)
[2018-02-01] MEDS: P-EPHED 60MG/TRIPROLIDI 2.5MG TABLET PO SCH ×2 (06:03→14:42)
[2018-02-01 10:11] LABS: HEMATOCRIT 43.2 % (32.4-45.2); HEMOGLOBIN 13.8 GM/dL (10.7-15.3); MCH 26.3 pg (25.7-33.7); MCHC 31.9 g/dl (32.0-36.0); MEAN CELL VOLUME 82.5 fl (80-96); MEAN PLT VOLUME 9.5 fl (7.5-11.1); PLATELET COUNT 273 K/MM3 (134-434); RBC 5.24 M/mm3 (3.60-5.2); RDW 15.7 % (11.6-15.6); WHITE BLOOD COUNT 5.3 K/mm3 (4.0-10.0)
[2018-02-01] MEDS: amLODIPine BESYLATE 10 MG TABLET (FP) PO SCH (10:20)
[2018-02-01] MEDS: BACITRACIN 0.9 GM PACKET TP SCH ×2 (10:20→23:07)
[2018-02-01] MEDS: PRENATAL VITAMINS W/ FOLIC ACID TABLET (FP) PO SCH (10:20)
[2018-02-01] MEDS: VALSARTAN 160 MG TABLET (UD) PO SCH (10:20)
[2018-02-01 10:26] LABS: CALCIUM 9.1 mg/dL (8.5-10.1); CHLORIDE 107 mmol/L (98-107); SODIUM 144 mmol/L (136-145)
[2018-02-01 10:32] LABS: ALBUMIN 3.7 g/dl (3.4-5.0); ALK PHOS 133 U/L (45-117); ANION GAP 8 MMOL/L (8-16); BILIRUBIN,TOTAL 0.4 mg/dL (0.2-1.0); BLOOD UREA NITROGEN 16 mg/dL (7-18); CO2 29 mmol/L (21-32); CREATININE 0.9 mg/dL (0.55-1.02); GLUCOSE,RANDOM 79 mg/dL (74-106); SGOT/AST 14 U/L (15-37); SGPT/ALT 17 U/L (12-78); TOT PROT 7.1 g/dl (6.4-8.2)
--- NOTE | 2018-02-01 11:23 | EKG ---
Test Reason : Blood Pressure : / mmHG Vent. Rate : 055 BPM Atrial Rate : 055 BPM P-R Int : 140 ms QRS Dur : 094 ms QT Int : 442 ms P-R-T Axes : 009 057 056 degrees QTc Int : 422 ms SINUS BRADYCARDIA POSSIBLE LEFT ATRIAL ENLARGEMENT LEFT VENTRICULAR HYPERTROPHY NONSPECIFIC T WAVE ABNORMALITY ABNORMAL ECG WHEN COMPARED WITH ECG OF 07-DEC-2017 11:46, NO SIGNIFICANT CHANGE WAS FOUND Confirmed by ROSE BEE, JUAN ([id number]) on 02/01/2018 11:23:09 AM Referred By: Tabatha Singh Confirmed By:JUAN ROSE MD
--- NOTE | 2018-02-01 11:42 | PN ---
S CIWA - CIWA Score Nausea/Vomitin-Mild Nausea/No Vomiting Muscle Tremors: 4-Moderate,w/Arms Extend Anxiety: 4-Mod. Anxious/Guarded Agitation: 3 Paroxysmal Sweats: 1-Minimal Palms Moist Orientation: 0-Oriented Tacttile Disturbances: 1-Very Mild Itch/Numbness Auditory Disturbances: 0-None Visual Disturbances: 0-None Headache: 1-Very Mild CIWA-Ar Total Score: 15 BHS Progress Note (SOAP) Subjective: sweat tremor restlessness trouble sleep at night headache Objective: 02/01/18 11:41 Vital Signs Temperature 97.9 F 02/01/18 09:31 Pulse Rate 67 02/01/18 09:31 Respiratory Rate 18 02/01/18 09:31 Blood Pressure 142/82 02/01/18 09:31 O2 Sat by Pulse Oximetry (%) Laboratory Last Values WBC 5.3 K/mm3 (4.0-10.0) 02/01/18 07:00 RBC 5.24 M/mm3 (3.60-5.2) H 02/01/18 07:00 Hgb 13.8 GM/dL (10.7-15.3) 02/01/18 07:00 Hct 43.2 % (32.4-45.2) 02/01/18 07:00 MCV 82.5 fl (80-96) 02/01/18 07:00 MCH 26.3 pg (25.7-33.7) 02/01/18 07:00 MCHC 31.9 g/dl (32.0-36.0) L 02/01/18 07:00 RDW 15.7 % (11.6-15.6) H 02/01/18 07:00 Plt Count 273 K/MM3 (134-434) 02/01/18 07:00 MPV 9.5 fl (7.5-11.1) 02/01/18 07:00 Sodium 144 mmol/L (136-145) 02/01/18 07:00 Potassium 4.0 mmol/L (3.5-5.1) 02/01/18 07:00 Chloride 107 mmol/L (98-107) 02/01/18 07:00 Carbon Dioxide 29 mmol/L (21-32) 02/01/18 07:00 Anion Gap 8 MMOL/L (8-16) 02/01/18 07:00 BUN 16 mg/dL (7-18) 02/01/18 07:00 Creatinine 0.9 mg/dL (0.55-1.02) 02/01/18 07:00 Creat Clearance w eGFR > 60 (>60) 02/01/18 07:00 Random Glucose 79 mg/dL (74-106) 02/01/18 07:00 Calcium 9.1 mg/dL (8.5-10.1) 02/01/18 07:00 Total Bilirubin 0.4 mg/dL (0.2-1.0) 02/01/18 07:00 AST 14 U/L (15-37) L 02/01/18 07:00 ALT 17 U/L (12-78) 02/01/18 07:00 Alkaline Phosphatase 133 U/L (45-117) H 02/01/18 07:00 Total Protein 7.1 g/dl (6.4-8.2) 02/01/18 07:00 Albumin 3.7 g/dl (3.4-5.0) 02/01/18 07:00 Urine Color Shayla 01/31/18 15:11 Urine Appearance Turbid 01/31/18 15:11 Urine pH 5.0 (5.0-8.0) 01/31/18 15:11 Ur Specific [place] 1.020 (1.001-1.035) 01/31/18 15:11 Urine Protein Negative (NEGATIVE) 01/31/18 15:11 Urine Glucose (UA) Negative (NEGATIVE) 01/31/18 15:11 Urine Ketones Negative (NEGATIVE) 01/31/18 15:11 Urine Blood 2+ (NEGATIVE) H 01/31/18 15:11 Urine Nitrite Negative (NEGATIVE) 01/31/18 15:11 Urine Bilirubin Negative (<2.0 mg/dL) 01/31/18 15:11 Urine Urobilinogen Negative mg/dL (0.2-1.0) 01/31/18 15:11 Ur Leukocyte Esterase Negative (NEGATIVE) 01/31/18 15:11 Urine WBC (Auto) 4 /hpf (3-5) 01/31/18 15:11 Urine RBC (Auto) <1 /hpf (0-3) 01/31/18 15:11 Ur Epithelial Cells Rare /HPF (FEW) 01/31/18 15:11 Calcium Oxalate Crystal Few /hpf (NONE SEEN) 01/31/18 15:11 Urine Bacteria Rare /hpf (NONE SEEN) 01/31/18 15:11 Urine Mucus Moderate 01/31/18 15:11 RPR Titer Nonreactive (NONREACTIVE) 02/01/18 07:00 lab noted Assessment: 02/01/18 11:42 withdrawal sx Plan: continue detox
[2018-02-01] MEDS ORDERED: P-EPHED 60MG/TRIPROLIDI 2.5MG TABLET PO PRN (14:39)
--- NOTE | 2018-02-01 18:13 | CONSULT ---
[facility] Psychiatric Consult - Data Date of interview: 02/01/18 Admission source: [facility] Identifying data: Readmission to [facility] for this 57 y/o AA female self- referred for detoxification treatment (alcohol and crack/cocaine dependence) .Admitted to [address] [place] [address].Patient is ,a mother of two,domiciled,unemployed and supported on [facility] benefits. Substance Abuse History: Confirmed by patient in this session.Details in current [facility] report : Smoking history: Never smoked. Have you smoked in the past 12 months: No. Cigars Per Day: 0. Hx Chewing Tobacco Use: No. - Substance & Tx. History. Hx Alcohol Use: Yes. Hx Substance Use: Yes. Substance Use Type: Alcohol, Cocaine. Hx Substance Use Treatment: Yes ( at [facility] ). - Substances Abused. Alcohol. Route: Oral. Frequency: Daily. Amount used: 1/2 pint vokda, 6 12oz beer. Age of first use: 18. Date of Last Use: 02/09. Crack. Route: Smoking. Frequency: Daily. Amount used: $30. Age of first use: 25. Date of Last Use: 01/31/18 Medical History: Hypertension,bronchial asthma,history of cervical cancer ( partial hysterectomy),eye surgery (detached retina in left eye) and inguinal herniorraphy. Psychiatric History: History of several psychiatric hospitalizations, as recently as 2009 ([facility]).Diagnosed with MDD and Bipolar Disorder (self-report).Ms Jacobo declares that she has not seen a psychiatrist or taken psychotropic medications for more than two years.Used to be prescribed duloxetine and trazodone.No history of suicide attempts. Physical/Sexual Abuse/Trauma History: Patient denies. Additional Comment: Urine Drug Screen Results: MARTIN-Cocaine.Noted. Mental Status Exam - Mental Status Exam Alert and Oriented to: Time, Place, Person Cognitive Function: Good Patient Appearance: Well Groomed Mood: Hopeful, Euthymic Affect: Appropriate, Normal Range Patient Behavior: Fatigued, Appropriate, Cooperative Speech Pattern: Clear, Appropriate Voice Loudness: Normal Thought Process: Intact, Goal Oriented Thought Disorder: Not Present Hallucinations: Denies Suicidal Ideation: Denies Homicidal Ideation: Denies Insight/Judgement: Poor Sleep: Poorly, Difficulty falling asleep (wants zolpidem) Appetite: Good Muscle strength/Tone: Normal Gait/Station: Normal Psychiatric Findings - Problem List ([place] 1, 2,3) (1) Alcohol dependence with withdrawal Current Visit: Yes Status: Acute Qualifiers: Complication of substance-induced condition: uncomplicated Qualified Code(s ): F10.230 - Alcohol dependence with withdrawal, uncomplicated (2) Cocaine dependence, uncomplicated Current Visit: Yes Status: Acute (3) Insomnia Current Visit: Yes Status: Acute - Initial Treatment Plan Initial Treatment Plan: Psychoeducation.Sleep hygiene.Detoxification in progress.Ambien 5 mg po hs prn.Patient is made aware of the risk of parasomnias.Observation.
[2018-02-01] MEDS: THIAMINE HCL 100 MG TABLET (FP) PO SCH (22:32)
[2018-02-02] MEDS: chlordiazePOXIDE HCL 25 MG CAPSULE PO SCH ×2 (05:20→10:16)
[2018-02-02] MEDS: guaiFENesin/D-METHORPHAN HB 10 ML UNIT-DOSE CUPS PO PRN ×2 (06:52→17:58)
[2018-02-02] MEDS: PRENATAL VITAMINS W/ FOLIC ACID TABLET (FP) PO SCH (10:16)
[2018-02-02] MEDS: BACITRACIN 0.9 GM PACKET TP SCH ×2 (10:16→22:31)
[2018-02-02] MEDS: amLODIPine BESYLATE 10 MG TABLET (FP) PO SCH (10:16)
[2018-02-02] MEDS: VALSARTAN 160 MG TABLET (UD) PO SCH (10:16)
--- NOTE | 2018-02-02 12:57 | PN ---
S CIWA - CIWA Score Nausea/Vomitin-No Nausea/No Vomiting Muscle Tremors: 3 Anxiety: 3 Agitation: 3 Paroxysmal Sweats: 1-Minimal Palms Moist Orientation: 0-Oriented Tacttile Disturbances: 1-Very Mild Itch/Numbness Auditory Disturbances: 0-None Visual Disturbances: 0-None Headache: 1-Very Mild CIWA-Ar Total Score: 12 S Progress Note (SOAP) Subjective: sweat tremor restlessness trouble sleep at night Objective: 02/02/18 12:56 Vital Signs Temperature 97.2 F L 02/02/18 09:30 Pulse Rate 68 02/02/18 09:30 Respiratory Rate 18 02/02/18 09:30 Blood Pressure 137/89 02/02/18 09:30 O2 Sat by Pulse Oximetry (%) Laboratory Last Values WBC 5.3 K/mm3 (4.0-10.0) 02/01/18 07:00 RBC 5.24 M/mm3 (3.60-5.2) H 02/01/18 07:00 Hgb 13.8 GM/dL (10.7-15.3) 02/01/18 07:00 Hct 43.2 % (32.4-45.2) 02/01/18 07:00 MCV 82.5 fl (80-96) 02/01/18 07:00 MCH 26.3 pg (25.7-33.7) 02/01/18 07:00 MCHC 31.9 g/dl (32.0-36.0) L 02/01/18 07:00 RDW 15.7 % (11.6-15.6) H 02/01/18 07:00 Plt Count 273 K/MM3 (134-434) 02/01/18 07:00 MPV 9.5 fl (7.5-11.1) 02/01/18 07:00 Sodium 144 mmol/L (136-145) 02/01/18 07:00 Potassium 4.0 mmol/L (3.5-5.1) 02/01/18 07:00 Chloride 107 mmol/L (98-107) 02/01/18 07:00 Carbon Dioxide 29 mmol/L (21-32) 02/01/18 07:00 Anion Gap 8 MMOL/L (8-16) 02/01/18 07:00 BUN 16 mg/dL (7-18) 02/01/18 07:00 Creatinine 0.9 mg/dL (0.55-1.02) 02/01/18 07:00 Creat Clearance w eGFR > 60 (>60) 02/01/18 07:00 Random Glucose 79 mg/dL (74-106) 02/01/18 07:00 Calcium 9.1 mg/dL (8.5-10.1) 02/01/18 07:00 Total Bilirubin 0.4 mg/dL (0.2-1.0) 02/01/18 07:00 AST 14 U/L (15-37) L 02/01/18 07:00 ALT 17 U/L (12-78) 02/01/18 07:00 Alkaline Phosphatase 133 U/L (45-117) H 02/01/18 07:00 Total Protein 7.1 g/dl (6.4-8.2) 02/01/18 07:00 Albumin 3.7 g/dl (3.4-5.0) 02/01/18 07:00 Urine Color Shayla 01/31/18 15:11 Urine Appearance Turbid 01/31/18 15:11 Urine pH 5.0 (5.0-8.0) 01/31/18 15:11 Ur Specific [place] 1.020 (1.001-1.035) 01/31/18 15:11 Urine Protein Negative (NEGATIVE) 01/31/18 15:11 Urine Glucose (UA) Negative (NEGATIVE) 01/31/18 15:11 Urine Ketones Negative (NEGATIVE) 01/31/18 15:11 Urine Blood 2+ (NEGATIVE) H 01/31/18 15:11 Urine Nitrite Negative (NEGATIVE) 01/31/18 15:11 Urine Bilirubin Negative (<2.0 mg/dL) 01/31/18 15:11 Urine Urobilinogen Negative mg/dL (0.2-1.0) 01/31/18 15:11 Ur Leukocyte Esterase Negative (NEGATIVE) 01/31/18 15:11 Urine WBC (Auto) 4 /hpf (3-5) 01/31/18 15:11 Urine RBC (Auto) <1 /hpf (0-3) 01/31/18 15:11 Ur Epithelial Cells Rare /HPF (FEW) 01/31/18 15:11 Calcium Oxalate Crystal Few /hpf (NONE SEEN) 01/31/18 15:11 Urine Bacteria Rare /hpf (NONE SEEN) 01/31/18 15:11 Urine Mucus Moderate 01/31/18 15:11 RPR Titer Nonreactive (NONREACTIVE) 02/01/18 07:00 lab noted Assessment: 02/02/18 12:56 withdrawal sx Plan: continue detox
[2018-02-02] MEDS: chlordiazePOXIDE 5 MG CAPSULE PO SCH ×2 (17:55→22:31)
[2018-02-02] MEDS: THIAMINE HCL 100 MG TABLET (FP) PO SCH (22:31)
[2018-02-03] MEDS: chlordiazePOXIDE 5 MG CAPSULE PO SCH (05:56)
[2018-02-03] MEDS: guaiFENesin/D-METHORPHAN HB 10 ML UNIT-DOSE CUPS PO PRN (06:17)
[2018-02-03 06:29] VITALS: BP 132/93; PULSE 65; TEMP 97.6
--- NOTE | 2018-02-03 08:39 | DS ---
[facility] Detox Discharge Summary Admission Date: 01/31/18 Discharge Date: 02/03/18 - History Present History: Alcohol Dependence Additional Comments: 57 years old female admitted on 01/31/18 for alcohol withdrawal sx completed alcohol detox regimen tolerated well denies alcohol withdrawal sx alert oriented x 3 no acute distress [facility] - Physical Exam Results Vital Signs: Vital Signs Temperature 97.6 F 02/03/18 06:28 Pulse Rate 65 02/03/18 06:28 Respiratory Rate 19 02/03/18 06:28 Blood Pressure 132/93 02/03/18 06:28 O2 Sat by Pulse Oximetry (%) Pertinent Admission Physical Exam Findings: alcohol withdrawal sx Vital Signs Temperature 97.6 F 02/03/18 06:28 Pulse Rate 65 02/03/18 06:28 Respiratory Rate 19 02/03/18 06:28 Blood Pressure 132/93 02/03/18 06:28 O2 Sat by Pulse Oximetry (%) Laboratory Last Values WBC 5.3 K/mm3 (4.0-10.0) 02/01/18 07:00 RBC 5.24 M/mm3 (3.60-5.2) H 02/01/18 07:00 Hgb 13.8 GM/dL (10.7-15.3) 02/01/18 07:00 Hct 43.2 % (32.4-45.2) 02/01/18 07:00 MCV 82.5 fl (80-96) 02/01/18 07:00 MCH 26.3 pg (25.7-33.7) 02/01/18 07:00 MCHC 31.9 g/dl (32.0-36.0) L 02/01/18 07:00 RDW 15.7 % (11.6-15.6) H 02/01/18 07:00 Plt Count 273 K/MM3 (134-434) 02/01/18 07:00 MPV 9.5 fl (7.5-11.1) 02/01/18 07:00 Sodium 144 mmol/L (136-145) 02/01/18 07:00 Potassium 4.0 mmol/L (3.5-5.1) 02/01/18 07:00 Chloride 107 mmol/L (98-107) 02/01/18 07:00 Carbon Dioxide 29 mmol/L (21-32) 02/01/18 07:00 Anion Gap 8 MMOL/L (8-16) 02/01/18 07:00 BUN 16 mg/dL (7-18) 02/01/18 07:00 Creatinine 0.9 mg/dL (0.55-1.02) 02/01/18 07:00 Creat Clearance w eGFR > 60 (>60) 02/01/18 07:00 Random Glucose 79 mg/dL (74-106) 02/01/18 07:00 Calcium 9.1 mg/dL (8.5-10.1) 02/01/18 07:00 Total Bilirubin 0.4 mg/dL (0.2-1.0) 02/01/18 07:00 AST 14 U/L (15-37) L 02/01/18 07:00 ALT 17 U/L (12-78) 02/01/18 07:00 Alkaline Phosphatase 133 U/L (45-117) H 02/01/18 07:00 Total Protein 7.1 g/dl (6.4-8.2) 02/01/18 07:00 Albumin 3.7 g/dl (3.4-5.0) 02/01/18 07:00 Urine Color Shayla 01/31/18 15:11 Urine Appearance Turbid 01/31/18 15:11 Urine pH 5.0 (5.0-8.0) 01/31/18 15:11 Ur Specific [place] 1.020 (1.001-1.035) 01/31/18 15:11 Urine Protein Negative (NEGATIVE) 01/31/18 15:11 Urine Glucose (UA) Negative (NEGATIVE) 01/31/18 15:11 Urine Ketones Negative (NEGATIVE) 01/31/18 15:11 Urine Blood 2+ (NEGATIVE) H 01/31/18 15:11 Urine Nitrite Negative (NEGATIVE) 01/31/18 15:11 Urine Bilirubin Negative (<2.0 mg/dL) 01/31/18 15:11 Urine Urobilinogen Negative mg/dL (0.2-1.0) 01/31/18 15:11 Ur Leukocyte Esterase Negative (NEGATIVE) 01/31/18 15:11 Urine WBC (Auto) 4 /hpf (3-5) 01/31/18 15:11 Urine RBC (Auto) <1 /hpf (0-3) 01/31/18 15:11 Ur Epithelial Cells Rare /HPF (FEW) 01/31/18 15:11 Calcium Oxalate Crystal Few /hpf (NONE SEEN) 01/31/18 15:11 Urine Bacteria Rare /hpf (NONE SEEN) 01/31/18 15:11 Urine Mucus Moderate 01/31/18 15:11 RPR Titer Nonreactive (NONREACTIVE) 02/01/18 07:00 lab noted - Treatment Hospital Course: Detox Protocol Followed, Detoxed Safely, Responded well, Discharged Condition Good, Rehab Referral Accepted Patient [facility] - Medication Discharge Medications: Ambulatory Orders Albuterol Sulfate Inhaler - [Ventolin HFA Inhaler -] 1 - 2 inh PO Q4H PRN #1 inhaler 02/03/18 Amlodipine Besylate/Valsartan [Amlodipine-Valsartan 10-320 mg] 1 each PO DAILY # 30 tablet 02/03/18 - Diagnosis (1) Alcohol dependence with withdrawal Status: Acute Qualifiers: Complication of substance-induced condition: uncomplicated Qualified Code(s ): F10.230 - Alcohol dependence with withdrawal, uncomplicated (2) Asthma Status: Chronic Qualifiers: Asthma severity: mild Asthma persistence: intermittent Asthma complication type: uncomplicated Qualified Code(s): J45.20 - Mild intermittent asthma, uncomplicated (3) Hypertension Status: Chronic Qualifiers: Hypertension type: essential hypertension Qualified Code(s): I10 - Essential (primary) hypertension (4) Bipolar 1 disorder, depressed Status: Suspected - AMA Did Patient Leave Against Medical Advice: No
[2018-02-03] MEDS ORDERED: chlordiazePOXIDE HCL 10 MG CAPSULE PO SCH (17:00)
== END 2018-02-03 09:00 | disposition home or self-care (01) | DRG 774 ==
LOC: YASAS 08:29 → Y6N 11:46
PROC: HZ2ZZZZ Detoxification Services for Substance Abuse Treatment (ICD-10-PCS; principal; 2018-01-31)
DX: F10.230 Alcohol dependence with withdrawal, uncomplicated (principal); F14.20 Cocaine dependence, uncomplicated; F31.89 Other bipolar disorder; F19.24 Other psychoactive substance dependence with psychoactive substance-induced mood disorder; G47.00 Insomnia, unspecified; I10 Essential (primary) hypertension; J45.20 Mild intermittent asthma, uncomplicated; M19.90 Unspecified osteoarthritis, unspecified site; R05 Cough; T22.00XA Burn of unspecified degree of shoulder and upper limb, except wrist and hand, unspecified site, initial encounter; X08.8XXA Exposure to other specified smoke, fire and flames, initial encounter; Z85.41 Personal history of malignant neoplasm of cervix uteri; Z90.79 Acquired absence of other genital organ(s)
CPT/HCPCS: 36415; 80053; 81003; 81015; 85027; 86593; 93005; 93010

== ENCOUNTER 2018-04-02 08:42 | Inpatient (IN) | payer OTHER ==
[2018-04-02 08:56] VITALS: BMI 27.4
--- NOTE | 2018-04-02 09:27 | HP ---
CIWA Score Nausea/Vomitin Muscle Tremors: 2 Anxiety: 2 Agitation: 2 Paroxysmal Sweats: 1-Minimal Palms Moist Orientation: 0-Oriented Tacttile Disturbances: 1-Very Mild Itch/Numbness Auditory Disturbances: 1-Very Mild Visual Disturbances: 1-Very Mild Sensitivity Headache: 2-Mild CIWA-Ar Total Score: 14 - Admission Criteria [facility]ASAS Guidelines: Admission for Medically Managed Detox: Requires at least one of the followin. CIWA greater than 12 2. Seizures within the past 24 hours 3. Delirium tremens within the past 24 hours 4. Hallucinations within the past 24 hours 5. Acute intervention needed for co occurring medical disorder 6. Acute intervention needed for co occurring psychiatric disorder 7. Severe withdrawal that cannot be handled at a lower level of care (continued vomiting, continued diarrhea, abnormal vital signs) requiring intravenous medication and/or fluids 8. Patient presents the following: CIWA greater than 12 Admission Criteria Met: Admission criteria met Admission ROS BHS - HPI Chief Complaint: i need help to stop drinking alcohol and cocaine dependence Allergies/Adverse Reactions: Allergies Allergy/AdvReac Type Severity Reaction Status Date / Time No Known Drug Allergies Allergy Verified 04/02/18 09:55 NKA Allergy Uncoded 04/02/18 09:55 History of Present Illness: this 57 years old male with alcohol and cocaine dependence,seeking detox, withdrawal symptom,last detox 01/31/18 to 02/03/19 multiple admissions in detox history of hypertension syncope alcohol related longest period of sobriety 3 years asthma Exam Limitations: No Limitations - Ebola screening Have you traveled outside of the country in the last 21 days: No Have you had contact with anyone from an Ebola affected area: No Have you been sick,other than usual withdrawal symptoms: No - Review of Systems Constitutional: Loss of Appetite, Malaise, Night Sweats, Changes in sleep, Weakness EENT: reports: Nose Congestion Respiratory: reports: No Symptoms reported, Other (asthma) Cardiac: reports: No Symptoms Reported GI: reports: Nausea, Poor Appetite, Abdominal cramping : reports: No Symptoms Reported Musculoskeletal: reports: Back Pain, Muscle Pain Integumentary: reports: Dryness Neuro: reports: Tremors Endocrine: reports: No Symptoms Reported Hematology: reports: No Symptoms Reported Psychiatric: reports: No Sypmtoms Reported, Judgement Intact, Mood/Affect Appropiate, Orientated x3 Patient History - Patient Medical History Hx Anemia: No Hx Asthma: Yes (On albuterol) Hx Chronic Obstructive Pulmonary Disease (COPD): No Hx Cancer: Yes (Cervical, 1994, Partial hysterectomy, laser treatment.) Hx Cardiac Disorders: No Hx Congestive Heart Failure: No Hx Hypertension: Yes (On Amlodipine/valsartan 10-320mg) Hx Hypercholesterolemia: No Hx Pacemaker: No HX Cerebrovascular Accident: No Hx Seizures: No Hx Dementia: No Hx Diabetes: No Hx Gastrointestinal Disorders: No Hx Liver Disease: No Hx Genitourinary Disorders: No Hx Sexually Transmitted Disorders: No Hx Renal Disease (ESRD): No Hx Thyroid Disease: No Hx Human Immunodeficiency Virus (HIV): No (Last tested: 06/2017: NEGATIVE.) Hx Hepatitis C: No Hx Depression: Yes ( Not on meds) Hx Suicide Attempt: No (Denies Current HI/SI) Hx Bipolar Disorder: Yes (Meds. in past, none currently.) Hx Schizophrenia: No Other Medical History: no suicidal,no homicidal - Patient Surgical History Past Surgical History: Yes Hx Neurologic Surgery: No Hx Cataract Extraction: Yes (Retinal detachment; LEFT EYE 2009.) Hx Cardiac Surgery: No Hx Lung Surgery: No Hx Breast Surgery: No Hx Breast Biopsy: No Hx Abdominal Surgery: Yes (Ingiunal HERNIA (2); 1995, 1996) Hx Appendectomy: No Hx Cholecystectomy: No Hx Genitourinary Surgery: No Hx Section: No Hx Orthopedic Surgery: No Hx Hysterectomy: Yes (PARTIAL, 1994.) Other Surgical History: CERVICAL CA X 2 1994 PARTIAL HYSTERECTOMY Anesthesia Reaction: No - PPD History Previous Implant?: Yes Documented Results: Negative w/proof Implanted On Prior [facility] Admission?: Yes Date: 08/22/17 Results: 0mm PPD to be Administered?: No - Reproductive History Patient is a Female of Child Bearing Age (11 -55 yrs old): No Last Menstrual Period: 10/22/94 Patient : No - Smoking Cessation Smoking history: Never smoked Have you smoked in the past 12 months: No Cigars Per Day: 0 Hx Chewing Tobacco Use: No - Substance & Tx. History Hx Alcohol Use: Yes Hx Substance Use: Yes Substance Use Type: Alcohol, Cocaine Hx [facility] - Substances Abused Alcohol Route: Oral Frequency: Daily Amount used: 1 pint of vodka and rum/6 pack of 12 ozs of 12 ozs of beer Age of first use: 18 Date of Last Use: 04/02/18 Cocaine Route: Smoking Frequency: Daily Amount used: 30$ Age of first use: 25 Date of Last Use: 04/02/18 Family Disease History - Family Disease History Family Disease History: CA: Father (PROSTATE; .), Mother (OVARIAN; .), Brother (PROSTATE; .), Sister (BREAST; . ), Other: Grandparent (ARTHRITIS.) Admission Physical Exam [facility] - Vital Signs Vital Signs: Vital Signs - 24 hr 04/02/18 08:49 Temperature 97.6 F Pulse Rate 64 Respiratory 18 Rate Blood Pressure 177/97 H - Physical General Appearance: Yes: Moderate Distress, Tremorous, Irritable, Sweating, Anxious HEENTM: Yes: Normal ENT Inspection, SAMANTHA, Pharynx Normal Respiratory: Yes: Lungs Clear, Normal Breath Sounds, No Respiratory Distress Neck: Yes: Within Normal Limits, Supple, Trachea in good position Breast: Yes: Breast Exam Deferred Cardiology: Yes: Within Normal Limits, Regular Rhythm, Regular Rate, S1, S2 Abdominal: Yes: Within Normal Limits, Normal Bowel Sounds, Non Tender, Flat, Soft, Surgical Scar Genitourinary: Yes: Within Normal Limits Back: Yes: Muscle Spasm Musculoskeletal: Yes: full range of Motion, Back pain, Muscle Pain Extremities: Yes: Tremors Neurological: Yes: residential service technician II-XII NML intact, Fully Oriented, Alert, Motor Strength 5/5 Integumentary: Yes: Dry Lymphatic: Yes: Within Normal Limits - Diagnostic (1) Alcohol dependence with withdrawal Current Visit: No Status: Acute Qualifiers: Complication of substance-induced condition: uncomplicated Qualified Code(s ): F10.230 - Alcohol dependence with withdrawal, uncomplicated (2) Bipolar disorder Current Visit: Yes Status: Acute (3) Cocaine dependence, uncomplicated Current Visit: No Status: Acute (4) Arthritis Current Visit: No Status: Chronic (5) Asthma Current Visit: No Status: Chronic Qualifiers: Asthma severity: mild Asthma persistence: intermittent Asthma complication type: uncomplicated Qualified Code(s): J45.20 - Mild intermittent asthma, uncomplicated (6) Hypertension Current Visit: No Status: Chronic Qualifiers: Hypertension type: essential hypertension Qualified Code(s): I10 - Essential (primary) hypertension (7) History of cervical cancer Current Visit: No Status: Resolved (8) History of partial hysterectomy Current Visit: No Status: Resolved (9) Insomnia secondary to depression with anxiety Current Visit: Yes Status: Acute Cleared for Admission [facility] - Detox or Rehab [facility] Level of Care: Medically Managed Detox Regimen/Protocol: Librium [facility] Breath Alcohol Content Breath Alcohol Content: 0 Urine Pregancy Test - Result Urine Test Results: Negative- NO Line Present Urine Drug Screen - Results Drug Screen Negative: No Urine Drug Screen Results: MARTIN-Cocaine
[2018-04-02] MEDS ORDERED: P-EPHED 60MG/TRIPROLIDI 2.5MG TABLET PO PRN (09:40)
[2018-04-02] MEDS ORDERED: guaiFENesin/D-METHORPHAN HB 10 ML UNIT-DOSE CUPS PO PRN (09:40)
[2018-04-02] MEDS ORDERED: IBUPROFEN 400 MG TABLET (FP) PO PRN (09:40)
[2018-04-02] MEDS ORDERED: hydrOXYzine PAMOATE 50 MG CAPSULE (FP) PO PRN (09:40)
[2018-04-02] MEDS ORDERED: ACETAMINOPHEN 325 MG TABLET (FP) PO PRN (09:40)
[2018-04-02] MEDS ORDERED: LOPERAMIDE HCL 2 MG CAPSULE PO PRN (09:40)
[2018-04-02] MEDS ORDERED: MENTHOL/PHENOL 1 EACH UD MM PRN (09:40)
[2018-04-02] MEDS ORDERED: chlordiazePOXIDE HCL 25 MG CAPSULE PO PRN (09:40)
[2018-04-02] MEDS ORDERED: MAG HYDROX/AL HYDROX/SIMETH 30 ML UNIT-DOSE CUP PO PRN (09:40)
[2018-04-02] MEDS ORDERED: MAGNESIUM HYDROX 2400MG/30ML ORAL SUSPENSION 30 ML CUP PO PRN (09:40)
[2018-04-02] MEDS ORDERED: MAGNESIUM CITRATE 300 ML BOTTLE PO PRN (09:40)
[2018-04-02] MEDS ORDERED: ALBUTEROL SO4 8 GM HFA INHALER IH PRN (10:24)
[2018-04-02] MEDS: chlordiazePOXIDE HCL 25 MG CAPSULE PO SCH ×3 (12:29→22:55)
[2018-04-02] MEDS: PRENATAL VITAMINS W/ FOLIC ACID TABLET (FP) PO SCH (12:29)
[2018-04-02] MEDS ORDERED: cloNIDine HCL 0.1 MG TABLET PO ONE (13:45)
--- NOTE | 2018-04-02 14:50 | EKG ---
Test Reason : Blood Pressure : / mmHG Vent. Rate : 064 BPM Atrial Rate : 064 BPM P-R Int : 140 ms QRS Dur : 098 ms QT Int : 420 ms P-R-T Axes : 029 067 050 degrees QTc Int : 433 ms NORMAL SINUS RHYTHM WITH SINUS ARRHYTHMIA VOLTAGE CRITERIA FOR LEFT VENTRICULAR HYPERTROPHY NONSPECIFIC T WAVE ABNORMALITY ABNORMAL ECG WHEN COMPARED WITH ECG OF 31-JAN-2018 12:44, NO SIGNIFICANT CHANGE WAS FOUND Confirmed by LILI VALDEZ MD ([id number]) on 04/02/2018 2:49:50 PM Referred By: Confirmed By:LILI VALDEZ MD
[2018-04-02 17:06] LABS: URINE APPEARANCE CLEAR; URINE BILIRUBIN NEGATIVE (<2.0 mg/dL); URINE COLOR YELLOW; URINE GLUCOSE (UA) NEGATIVE (NEGATIVE); URINE KETONE NEGATIVE (NEGATIVE); URINE LEUK ESTERASE NEGATIVE (NEGATIVE); URINE NITRITE NEGATIVE (NEGATIVE); URINE PROTEIN NEGATIVE (NEGATIVE); URINE UROBILINOGEN NEGATIVE mg/dL (0.2-1.0)
[2018-04-02 17:08] LABS: EPI CELLS RARE /HPF (FEW); URINE MUCUS RARE
[2018-04-02] MEDS: THIAMINE HCL 100 MG TABLET (FP) PO SCH (22:55)
[2018-04-03] MEDS: chlordiazePOXIDE HCL 25 MG CAPSULE PO SCH ×4 (06:21→22:36)
[2018-04-03] MEDS: PATIENT'S OWN MEDICATION (NON-FORMULARY) (Amlodipine Besylate/Valsartan [Amlodipine-Valsar PO SCH (10:31)
[2018-04-03] MEDS: PRENATAL VITAMINS W/ FOLIC ACID TABLET (FP) PO SCH (10:31)
[2018-04-03 11:26] LABS: ALBUMIN 3.8 g/dl (3.4-5.0); ALK PHOS 134 U/L (45-117); ANION GAP 9 MMOL/L (8-16); BILIRUBIN,TOTAL 0.3 mg/dL (0.2-1); BLOOD UREA NITROGEN 16 mg/dL (7-18); CHLORIDE 108 mmol/L (98-107); CO2 27 mmol/L (21-32); GLUCOSE,RANDOM 75 mg/dL (74-106); SGOT/AST 10 U/L (15-37); SGPT/ALT 18 U/L (13-61); SODIUM 144 mmol/L (136-145); TOT PROT 7.4 g/dl (6.4-8.2)
[2018-04-03 11:33] LABS: HEMATOCRIT 42.4 % (32.4-45.2); HEMOGLOBIN 13.3 GM/dL (10.7-15.3); MCH 26.4 pg (25.7-33.7); MCHC 31.4 g/dl (32.0-36.0); MEAN CELL VOLUME 84.3 fl (80-96); MEAN PLT VOLUME 9.9 fl (7.5-11.1); PLATELET COUNT 254 K/MM3 (134-434); RBC 5.02 M/mm3 (3.60-5.2); RDW 16.3 % (11.6-15.6); WHITE BLOOD COUNT 6.1 K/mm3 (4.0-10.0)
--- NOTE | 2018-04-03 15:26 | PN ---
S CIWA - CIWA Score Nausea/Vomitin-No Nausea/No Vomiting Muscle Tremors: None Anxiety: 3 Agitation: 3 Paroxysmal Sweats: 2 Orientation: 0-Oriented Tacttile Disturbances: 0-None Auditory Disturbances: 0-None Visual Disturbances: 0-None Headache: 0-None Present CIWA-Ar Total Score: 8 BHS Progress Note (SOAP) Subjective: PATIENT C/O ANXIETY, RESTLESSNESS AND SWEATING. Objective: 04/03/18 15:24 Laboratory Tests 04/02/18 04/03/18 04/03/18 15:30 05:40 05:40 WBC 6.1 RBC 5.02 Hgb 13.3 Hct 42.4 MCV 84.3 MCH 26.4 MCHC 31.4 L RDW 16.3 H Plt Count 254 MPV 9.9 Sodium 144 Potassium 4.0 Chloride 108 H Carbon Dioxide 27 Anion Gap 9 BUN 16 Creatinine 1.0 Creat Clearance w eGFR 57.15 Random Glucose 75 Calcium 9.0 Total Bilirubin 0.3 AST 10 L ALT 18 Alkaline Phosphatase 134 H Total Protein 7.4 Albumin 3.8 Urine Color Yellow Urine Appearance Clear Urine pH 5.0 Ur Specific [place] 1.024 Urine Protein Negative Urine Glucose (UA) Negative Urine Ketones Negative Urine Blood 1+ H Urine Nitrite Negative Urine Bilirubin Negative Urine Urobilinogen Negative Ur Leukocyte Esterase Negative Urine WBC (Auto) 5 Urine RBC (Auto) 1 Ur Epithelial Cells Rare Urine Mucus Rare RPR Titer 04/03/18 05:40 WBC RBC Hgb Hct MCV MCH MCHC RDW Plt Count MPV Sodium Potassium Chloride Carbon Dioxide Anion Gap BUN Creatinine Creat Clearance w eGFR Random Glucose Calcium Total Bilirubin AST ALT Alkaline Phosphatase Total Protein Albumin Urine Color Urine Appearance Urine pH Ur Specific [place] Urine Protein Urine Glucose (UA) Urine Ketones Urine Blood Urine Nitrite Urine Bilirubin Urine Urobilinogen Ur Leukocyte Esterase Urine WBC (Auto) Urine RBC (Auto) Ur Epithelial Cells Urine Mucus RPR Titer Nonreactive Vital Signs Period Temp Pulse Resp BP Sys/R[place] Pulse Ox Last 24 Hr 97.5 F-98.1 F 69-95 16-18 116-147/71-87 PE: ALERT AND ORIENTED SKIN WARM AND MOIST EXT FULL ROM, NO EDEMA AMB AD DANIEL Assessment: 04/03/18 15:25 WITHDRAWAL SX Plan: CONTINUE DETOX ENCOURAGE ORAL FLUIDS CONTINUE TO MONITOR CLINICALLY
--- NOTE | 2018-04-03 16:17 | CONSULT ---
[facility] Psychiatric Consult - Data Date of interview: 04/03/18 Admission source: [facility] Identifying data: This is one of multiple admissions to [facility] for this 57 y/ o AA female, self-referred for detoxification treatment (alcohol and crack/ cocaine dependence). Admitted to [address] [place] [address]. Patient is , a mother of two, domiciled, unemployed and supported on [facility] benefits. Substance Abuse History: Confirmed by patient in this interview. Details in current [facility] report : Smoking history: Never smoked. Have you smoked in the past 12 months: No. Cigars Per Day: 0. Hx Chewing Tobacco Use: No. - Substance & Tx. History. Hx Alcohol Use: Yes. Hx Substance Use: Yes. Substance Use Type: Alcohol, Cocaine. Hx Substance Use Treatment: Yes ([facility] 02/09 to 02/03/18 ). - Substances Abused. Alcohol. Route: Oral. Frequency : Daily. Amount used: 1 pint of vodka and rum/6 pack of 12 ozs of 12 ozs of beer. Age of first use: 18. Date of Last Use: 04/02/18. Cocaine. Route: Smoking. Frequency: Daily. Amount used: 30$. Age of first use: 25. Date of Last Use: 04/02/18 Medical History: Medical history is consistent with hypertension, bronchial asthma, history of cervical cancer (partial hysterectomy), eye surgery ( detached retina in left eye) and inguinal herniorraphy. Psychiatric History: Patient admits to a history of multiplel psychiatric hospitalizations ([facility]).Last hospitalized in 2009. Diagnosed with MDD and Bipolar Disorder (self-report). Ms Jacobo declares that she has not seen a psychiatrist or taken psychotropic medications for more than two years.Used to be prescribed duloxetine and trazodone.No history of suicide attempts. Patient remains asymptomatic and she declines to resume treatment with psychotropic medications other than agents for detoxification purposes. Physical/Sexual Abuse/Trauma History: Stressor : current illness of ( cancer of pancreas). Additional Comment: Urine Drug Screen Results: MARTIN-Cocaine. Noted. Mental Status Exam - Mental Status Exam Alert and Oriented to: Time, Place, Person Cognitive Function: Good Patient Appearance: Well Groomed Mood: Hopeful, Euthymic Affect: Appropriate, Normal Range Patient Behavior: Appropriate, Cooperative Speech Pattern: Clear, Appropriate Voice Loudness: Normal Thought Process: Intact, Goal Oriented Thought Disorder: Not Present Hallucinations: Denies Suicidal Ideation: Denies Homicidal Ideation: Denies Insight/Judgement: Fair Sleep: Poorly, Difficulty falling asleep Appetite: Good Muscle strength/Tone: Normal Gait/Station: Normal Psychiatric Findings - Problem List ([place] 1, 2,3) (1) Alcohol dependence with withdrawal Current Visit: Yes Status: Acute Qualifiers: Complication of substance-induced condition: uncomplicated Qualified Code(s ): F10.230 - Alcohol dependence with withdrawal, uncomplicated (2) Cocaine dependence, uncomplicated Current Visit: Yes Status: Acute (3) Insomnia Current Visit: Yes Status: Acute - Initial Treatment Plan Initial Treatment Plan: Psychoeducation. Sleep hygiene. Detoxification. Insomnia is addressed with trazodone 50 mg po hs. Side effects/benefits discussed with the patient. Psychotherapy (group,supportive). Relapse prevention measures (naltrexone, acamprosate, aftercare counseling, AA fellowship) are discussed with patient. Responded with ambivalence to teaching. Motivational rounds throughout hospital course. Observation.
[2018-04-03] MEDS: MELATONIN 5 MG TABLETS PO PRN (22:36)
[2018-04-03] MEDS: THIAMINE HCL 100 MG TABLET (FP) PO SCH (22:36)
[2018-04-04] MEDS: chlordiazePOXIDE HCL 25 MG CAPSULE PO SCH (06:45)
[2018-04-04] MEDS: PRENATAL VITAMINS W/ FOLIC ACID TABLET (FP) PO SCH (10:27)
[2018-04-04] MEDS: PATIENT'S OWN MEDICATION (NON-FORMULARY) (Amlodipine Besylate/Valsartan [Amlodipine-Valsar PO SCH (10:27)
[2018-04-04] MEDS: chlordiazePOXIDE 5 MG CAPSULE PO SCH ×3 (11:15→22:04)
--- NOTE | 2018-04-04 14:44 | PN ---
S CIWA - CIWA Score Nausea/Vomitin-No Nausea/No Vomiting Muscle Tremors: 2 Anxiety: 1-Mildly Anxious Agitation: 1-Slight > Activity Paroxysmal Sweats: 1-Minimal Palms Moist Orientation: 0-Oriented Tacttile Disturbances: 1-Very Mild Itch/Numbness Auditory Disturbances: 0-None Visual Disturbances: 0-None Headache: 1-Very Mild CIWA-Ar Total Score: 7 BHS Progress Note (SOAP) Subjective: patient stated that she is feeling much better and plan to go home tomorrow no tremor less sweat no gi distress sleep at night patient prefer to go to out patient addiction treatment program tomorrow Objective: 04/04/18 14:43 Vital Signs Temperature 97.9 F 04/04/18 14:21 Pulse Rate 83 04/04/18 14:21 Respiratory Rate 16 04/04/18 14:21 Blood Pressure 142/77 04/04/18 14:21 O2 Sat by Pulse Oximetry (%) Laboratory Last Values WBC 6.1 K/mm3 (4.0-10.0) 04/03/18 05:40 RBC 5.02 M/mm3 (3.60-5.2) 04/03/18 05:40 Hgb 13.3 GM/dL (10.7-15.3) 04/03/18 05:40 Hct 42.4 % (32.4-45.2) 04/03/18 05:40 MCV 84.3 fl (80-96) 04/03/18 05:40 MCH 26.4 pg (25.7-33.7) 04/03/18 05:40 MCHC 31.4 g/dl (32.0-36.0) L 04/03/18 05:40 RDW 16.3 % (11.6-15.6) H 04/03/18 05:40 Plt Count 254 K/MM3 (134-434) 04/03/18 05:40 MPV 9.9 fl (7.5-11.1) 04/03/18 05:40 Sodium 144 mmol/L (136-145) 04/03/18 05:40 Potassium 4.0 mmol/L (3.5-5.1) 04/03/18 05:40 Chloride 108 mmol/L (98-107) H 04/03/18 05:40 Carbon Dioxide 27 mmol/L (21-32) 04/03/18 05:40 Anion Gap 9 MMOL/L (8-16) 04/03/18 05:40 BUN 16 mg/dL (7-18) 04/03/18 05:40 Creatinine 1.0 mg/dL (0.55-1.3) 04/03/18 05:40 Creat Clearance w eGFR 57.15 (>60) 04/03/18 05:40 Random Glucose 75 mg/dL (74-106) 04/03/18 05:40 Calcium 9.0 mg/dL (8.5-10.1) 04/03/18 05:40 Total Bilirubin 0.3 mg/dL (0.2-1) 04/03/18 05:40 AST 10 U/L (15-37) L 04/03/18 05:40 ALT 18 U/L (13-61) 04/03/18 05:40 Alkaline Phosphatase 134 U/L (45-117) H 04/03/18 05:40 Total Protein 7.4 g/dl (6.4-8.2) 04/03/18 05:40 Albumin 3.8 g/dl (3.4-5.0) 04/03/18 05:40 Urine Color Yellow 04/02/18 15:30 Urine Appearance Clear 04/02/18 15:30 Urine pH 5.0 (5.0-8.0) 04/02/18 15:30 Ur Specific [place] 1.024 (1.010-1.035) 04/02/18 15:30 Urine Protein Negative (NEGATIVE) 04/02/18 15:30 Urine Glucose (UA) Negative (NEGATIVE) 04/02/18 15:30 Urine Ketones Negative (NEGATIVE) 04/02/18 15:30 Urine Blood 1+ (NEGATIVE) H 04/02/18 15:30 Urine Nitrite Negative (NEGATIVE) 04/02/18 15:30 Urine Bilirubin Negative (<2.0 mg/dL) 04/02/18 15:30 Urine Urobilinogen Negative mg/dL (0.2-1.0) 04/02/18 15:30 Ur Leukocyte Esterase Negative (NEGATIVE) 04/02/18 15:30 Urine WBC (Auto) 5 /hpf (3-5) 04/02/18 15:30 Urine RBC (Auto) 1 /hpf (0-3) 04/02/18 15:30 Ur Epithelial Cells Rare /HPF (FEW) 04/02/18 15:30 Urine Mucus Rare 04/02/18 15:30 RPR Titer Nonreactive (NONREACTIVE) 04/03/18 05:40 lab noted long history of hypertension strong recommend adherence with antihypertensant patient agrees to follow up with welfare analyst in the community setting Assessment: 04/04/18 14:44 mild withdrawal sx Plan: medically supervised detox
[2018-04-04] MEDS: THIAMINE HCL 100 MG TABLET (FP) PO SCH (22:04)
[2018-04-04] MEDS: MELATONIN 5 MG TABLETS PO PRN (22:05)
[2018-04-05] MEDS: chlordiazePOXIDE 5 MG CAPSULE PO SCH (05:32)
[2018-04-05] MEDS ORDERED: LISINOPRIL 10 MG TABLET (FP) PO SCH (10:00)
[2018-04-05] MEDS: chlordiazePOXIDE HCL 10 MG CAPSULE PO SCH ×3 (10:27→22:28)
[2018-04-05] MEDS: PATIENT'S OWN MEDICATION (NON-FORMULARY) (Amlodipine Besylate/Valsartan [Amlodipine-Valsar PO SCH (10:27)
[2018-04-05] MEDS: PRENATAL VITAMINS W/ FOLIC ACID TABLET (FP) PO SCH (10:27)
--- NOTE | 2018-04-05 10:35 | PN ---
BHS Progress Note (SOAP) Subjective: agitation irritable interrupted sleep Objective: 04/05/18 10:34 Vital Signs Temperature 97.7 F 04/05/18 09:48 Pulse Rate 82 04/05/18 09:48 Respiratory Rate 18 04/05/18 09:48 Blood Pressure 147/93 04/05/18 09:48 O2 Sat by Pulse Oximetry (%) aaox3 ambulating no acute distress Assessment: 04/05/18 10:34 mild withdrawal sx Plan: continue detox increase fluids d/c in am
[2018-04-05] MEDS: THIAMINE HCL 100 MG TABLET (FP) PO SCH (22:28)
[2018-04-06] MEDS: chlordiazePOXIDE HCL 10 MG CAPSULE PO SCH (06:40)
[2018-04-06 06:54] VITALS: BP 148/95; PULSE 69; TEMP 97.2
--- NOTE | 2018-04-06 09:06 | DS ---
[facility] Detox Discharge Summary Admission Date: 04/02/18 Discharge Date: 04/06/18 - History Present History: Alcohol Dependence, Cocaine Dependence - Physical Exam Results Vital Signs: Vital Signs Temperature 97.2 F L 04/06/18 06:53 Pulse Rate 69 04/06/18 06:53 Respiratory Rate 18 04/06/18 06:53 Blood Pressure 148/95 04/06/18 06:53 O2 Sat by Pulse Oximetry (%) - Treatment Hospital Course: Detox Protocol Followed, Detoxed Safely, Responded well, Discharged Condition Good, Rehab Referral Accepted - Medication Discharge Medications: Ambulatory Orders Albuterol Sulfate Inhaler - [Ventolin HFA Inhaler -] 1 - 2 inh PO Q4H PRN #1 inhaler 04/04/18 Amlodipine Besylate/Valsartan [Amlodipine-Valsartan 10-320 mg] 1 each PO DAILY # 14 tablet 04/04/18 Lisinopril [Prinivil] 10 mg PO DAILY #14 tablet 04/04/18 - Diagnosis (1) Alcohol dependence with withdrawal Current Visit: Yes Status: Chronic Qualifiers: Complication of substance-induced condition: uncomplicated Qualified Code(s ): F10.230 - Alcohol dependence with withdrawal, uncomplicated (2) Bipolar disorder Current Visit: Yes Status: Chronic (3) Cocaine dependence, uncomplicated Current Visit: Yes Status: Chronic (4) Insomnia Current Visit: Yes Status: Acute (5) Insomnia secondary to depression with anxiety Current Visit: Yes Status: Acute (6) Arthritis Current Visit: No Status: Chronic (7) Asthma Current Visit: Yes Status: Chronic Qualifiers: Asthma severity: mild Asthma persistence: intermittent Asthma complication type: uncomplicated Qualified Code(s): J45.20 - Mild intermittent asthma, uncomplicated (8) Chronic back pain Current Visit: No Status: Chronic Qualifiers: Back pain location: low back pain Back pain laterality: unspecified Sciatica presence: without sciatica Qualified Code(s): M54.5 - Low back pain; G89.29 - Other chronic pain; G89.29 - Other chronic pain (9) Cocaine dependence Current Visit: No Status: Chronic Qualifiers: Substance use status: uncomplicated Qualified Code(s): F14.20 - Cocaine dependence, uncomplicated (10) Heart murmur previously undiagnosed Current Visit: No Status: Chronic (11) Hypertension Current Visit: No Status: Chronic Qualifiers: Hypertension type: essential hypertension Qualified Code(s): I10 - Essential (primary) hypertension (12) Bipolar 1 disorder, depressed Current Visit: No Status: Suspected (13) History of cervical cancer Current Visit: No Status: Resolved (14) History of partial hysterectomy Current Visit: No Status: Resolved - AMA Did Patient Leave Against Medical Advice: No (going home)
== END 2018-04-06 08:45 | disposition home or self-care (01) | DRG 774 ==
LOC: YASAS 08:42 → Y6N 11:05
PROC: HZ2ZZZZ Detoxification Services for Substance Abuse Treatment (ICD-10-PCS; principal; 2018-04-02)
DX: F10.230 Alcohol dependence with withdrawal, uncomplicated (principal); F14.20 Cocaine dependence, uncomplicated; F31.9 Bipolar disorder, unspecified; F51.05 Insomnia due to other mental disorder; I10 Essential (primary) hypertension; G47.00 Insomnia, unspecified; M19.90 Unspecified osteoarthritis, unspecified site; J45.20 Mild intermittent asthma, uncomplicated; M54.5 Low back pain; G89.29 Other chronic pain; R01.1 Cardiac murmur, unspecified; Z85.41 Personal history of malignant neoplasm of cervix uteri; Z90.710 Acquired absence of both cervix and uterus
CPT/HCPCS: 36415; 80053; 81003; 81015; 85027; 86593; 93005; 93010; J0735

== ENCOUNTER 2018-06-03 08:22 | Inpatient (IN) | payer OTHER ==
[2018-06-03 08:48] VITALS: BMI 27.4
--- NOTE | 2018-06-03 10:05 | HP ---
CIWA Score Nausea/Vomitin-No Nausea/No Vomiting Muscle Tremors: None Anxiety: 4-Mod. Anxious/Guarded Agitation: 1-Slight > Activity Paroxysmal Sweats: 2 Orientation: 0-Oriented Tacttile Disturbances: 0-None Auditory Disturbances: 0-None Visual Disturbances: 0-None Headache: 5-Severe CIWA-Ar Total Score: 12 - Admission Criteria OAS Guidelines: Admission for Medically Managed Detox: Requires at least one of the followin. CIWA greater than 12 2. Seizures within the past 24 hours 3. Delirium tremens within the past 24 hours 4. Hallucinations within the past 24 hours 5. Acute intervention needed for co occurring medical disorder 6. Acute intervention needed for co occurring psychiatric disorder 7. Severe withdrawal that cannot be handled at a lower level of care (continued vomiting, continued diarrhea, abnormal vital signs) requiring intravenous medication and/or fluids 8. Patient presents the following: CIWA greater than 12 Admission Criteria Met: Admission criteria met Admission ROS [facility] - [facility] Allergies/Adverse Reactions: Allergies Allergy/AdvReac Type Severity Reaction Status Date / Time No Known Drug Allergies Allergy Verified 06/03/18 09:26 NKA Allergy Uncoded 06/03/18 09:26 History of Present Illness: patient here requesting detox from etoh use , reports 1/2 pint and 2 cans of beer daily since several years ago , prior detox 1 year ago at this facility relapsed after 1 month , denies seizures, + blackouts , denies falls while intoxicated . Latest use this morning , current JACOBY 0.000 utox + martin PMHX : htn , asthma ( dx , hospitalized, intubated several years ago ) using inhaler 2 x/week , OA PSHx : cervical CA w/ partial hysterectomy 1994 , hernia bilateral retinal detachment left , cataract left , left eye laser Psych : bipolar d/o , insomnia , depression on no meds . denies SA , + passive SI no plan , no HI declines psychiatric referral , ages 39, 37 A & W SHx : lives w/ who is aware of pt's presence in tx . Unemployed , on SSI x 2 years for mental health issues cocaine : 30 $/day , denies IVDU tobacco : denies Exam Limitations: No Limitations - Ebola screening Have you traveled outside of the country in the last 21 days: No Have you had contact with anyone from an Ebola affected area: No Have you been sick,other than usual withdrawal symptoms: No Do you have a fever: No - Review of Systems Constitutional: See HPI EENT: reports: Other (glasses - myopia , denies dysphagia) Respiratory: reports: No Symptoms reported, See HPI Cardiac: reports: No Symptoms Reported GI: reports: Nausea : reports: No Symptoms Reported Musculoskeletal: reports: No Symptoms Reported Integumentary: reports: No Symptoms Reported Neuro: reports: Headache Endocrine: reports: No Symptoms Reported Psychiatric: reports: Orientated x3, Anxious Patient History - Patient Medical History Hx Anemia: No Hx Asthma: Yes (On albuterol) Hx Chronic Obstructive Pulmonary Disease (COPD): No Hx Cancer: Yes (Cervical, 1994, Partial hysterectomy, laser treatment.) Hx Cardiac Disorders: No Hx Congestive Heart Failure: No Hx Hypertension: Yes (On Amlodipine/valsartan 10-320mg) Hx Hypercholesterolemia: No Hx Pacemaker: No HX Cerebrovascular Accident: No Hx Seizures: No Hx Dementia: No Hx Diabetes: No Hx Gastrointestinal Disorders: No Hx Liver Disease: No Hx Genitourinary Disorders: No Hx Sexually Transmitted Disorders: No Hx Renal Disease (ESRD): No Hx Thyroid Disease: No Hx Human Immunodeficiency Virus (HIV): No (Last tested: 06/2017: NEGATIVE.) Hx Hepatitis C: No Hx Depression: Yes ( Not on meds) Hx Suicide Attempt: No (Denies Current HI/SI) Hx Bipolar Disorder: Yes (Meds. in past, none currently.) Hx Schizophrenia: No - Patient Surgical History Past Surgical History: Yes Hx Neurologic Surgery: No Hx Cataract Extraction: Yes (Retinal detachment; LEFT EYE 2009.) Hx Cardiac Surgery: No Hx Lung Surgery: No Hx Breast Surgery: No Hx Breast Biopsy: No Hx Abdominal Surgery: Yes (Ingiunal HERNIA (2); 1995, 1996) Hx Appendectomy: No Hx Cholecystectomy: No Hx Genitourinary Surgery: No Hx Section: No Hx Orthopedic Surgery: No Hx Hysterectomy: Yes (PARTIAL, 1994.) Other Surgical History: CERVICAL CA X 2 1994 PARTIAL HYSTERECTOMY Anesthesia Reaction: No - PPD History Previous Implant?: Yes Date: 08/22/17 Results: 0mm - Reproductive History Last Menstrual Period: 10/22/94 Patient : No - Smoking Cessation Smoking history: Never smoked Have you smoked in the past 12 months: No Cigars Per Day: 0 Hx Chewing Tobacco Use: No - Substances Abused Alcohol Route: Oral Frequency: Daily Amount used: 0.5 PINT OF VODKA, 2 12oz cans of beer Age of first use: 18 Date of Last Use: 06/03/18 Crack Route: Smoking Frequency: Daily Amount used: $30 Age of first use: 25 Date of Last Use: 06/03/18 Family Disease History - Family Disease History Family Disease History: CA: Father (PROSTATE; .), Mother (OVARIAN; .), Brother (PROSTATE; .), Sister (BREAST; . ), Other: Grandparent (ARTHRITIS.) Admission Physical Exam [facility] - Vital Signs Vital Signs: Vital Signs - 24 hr 06/03/18 08:45 Temperature 98.6 F Pulse Rate 85 Respiratory 20 Rate Blood Pressure 161/64 - Physical General Appearance: Yes: Moderate Distress HEENTM: Yes: EOMI, Hearing grossly Normal, Normocephalic, Normal Voice, Other ( poor dentition) Respiratory: Yes: Chest Non-Tender, Lungs Clear, Normal Breath Sounds Neck: Yes: No masses,lesions,Nodules, Trachea in good position Breast: Yes: Breast Exam Deferred Cardiology: Yes: Regular Rhythm, Regular Rate, S1, S2, Tachycardia, Systolic Murmur (3/6 TRAE right sternal border - pt is aware and has no interest to followup with cardiology as advised .) Abdominal: Yes: Normal Bowel Sounds, Soft Genitourinary: Yes: Within Normal Limits Back: Yes: Normal Inspection Musculoskeletal: Yes: full range of Motion, Gait Steady Extremities: Yes: Normal Capillary Refill, Normal Inspection Neurological: Yes: Motor Strength 5/5 Integumentary: Yes: Normal Color - Diagnostic (1) Alcohol dependence with withdrawal Current Visit: No Status: Acute Qualifiers: Complication of substance-induced condition: uncomplicated Qualified Code(s ): F10.230 - Alcohol dependence with withdrawal, uncomplicated (2) Cocaine dependence Current Visit: No Status: Chronic Qualifiers: Substance use status: uncomplicated Qualified Code(s): F14.20 - Cocaine dependence, uncomplicated (3) Hypertension Current Visit: No Status: Chronic Qualifiers: Hypertension type: essential hypertension Qualified Code(s): I10 - Essential (primary) hypertension [facility] Breath Alcohol Content Breath Alcohol Content: 0 Urine Pregancy Test - Result Urine Test Results: Negative- NO Line Present Urine Drug Screen - Results Drug Screen Negative: No Urine Drug Screen Results: MARTIN-Cocaine
[2018-06-03] MEDS ORDERED: guaiFENesin/D-METHORPHAN HB 10 ML UNIT-DOSE CUPS PO PRN (10:14)
[2018-06-03] MEDS ORDERED: MAGNESIUM HYDROX 2400MG/30ML ORAL SUSPENSION 30 ML CUP PO PRN (10:14)
[2018-06-03] MEDS ORDERED: diazePAM 5 MG TABLET PO PRN (10:14)
[2018-06-03] MEDS ORDERED: MAG HYDROX/AL HYDROX/SIMETH 30 ML UNIT-DOSE CUP PO PRN (10:14)
[2018-06-03] MEDS ORDERED: MENTHOL/PHENOL 1 EACH UD MM PRN (10:14)
[2018-06-03] MEDS ORDERED: P-EPHED 60MG/TRIPROLIDI 2.5MG TABLET PO PRN (10:14)
[2018-06-03] MEDS ORDERED: ACETAMINOPHEN 325 MG TABLET (FP) PO PRN (10:14)
[2018-06-03] MEDS ORDERED: MAGNESIUM CITRATE 300 ML BOTTLE PO PRN (10:14)
[2018-06-03] MEDS ORDERED: IBUPROFEN 400 MG TABLET (FP) PO PRN (10:14)
[2018-06-03] MEDS ORDERED: ALBUTEROL SO4 8 GM HFA INHALER IH PRN (10:15)
[2018-06-03] MEDS ORDERED: ALBUTEROL SO4 0.083% IH SOL 2.5 MG/3 ML VIAL.NEB. NEB PRN (10:17)
[2018-06-03] MEDS: cloNIDine HCL 0.1 MG TABLET PO PRN (11:55)
[2018-06-03] MEDS ORDERED: chlordiazePOXIDE HCL 25 MG CAPSULE PO PRN (12:00)
--- NOTE | 2018-06-03 12:00 | PN ---
[facility]HS Progress Note Note: patient requests librium as detox agent
[2018-06-03] MEDS: chlordiazePOXIDE HCL 25 MG CAPSULE PO SCH ×3 (13:14→22:01)
[2018-06-03] MEDS ORDERED: diazePAM 5 MG TABLET PO SCH (14:00)
[2018-06-03] MEDS ORDERED: MELATONIN 5 MG TABLETS PO PRN (22:00)
[2018-06-03] MEDS: THIAMINE HCL 100 MG TABLET (FP) PO SCH (22:01)
[2018-06-04] MEDS: chlordiazePOXIDE HCL 25 MG CAPSULE PO SCH ×4 (06:09→22:13)
[2018-06-04] MEDS ORDERED: PATIENT'S OWN MEDICATION (NON-FORMULARY) (Amlodipine Besylate/Valsartan [Amlodipine-Valsar PO SCH (10:00)
[2018-06-04 10:18] LABS: HEMATOCRIT 42.6 % (32.4-45.2); HEMOGLOBIN 13.3 GM/dL (10.7-15.3); MCH 25.7 pg (25.7-33.7); MCHC 31.1 g/dl (32.0-36.0); MEAN CELL VOLUME 82.4 fl (80-96); MEAN PLT VOLUME 9.5 fl (7.5-11.1); PLATELET COUNT 313 K/MM3 (134-434); RBC 5.16 M/mm3 (3.60-5.2); RDW 15.6 % (11.6-15.6); WHITE BLOOD COUNT 6.9 K/mm3 (4.0-10.0)
[2018-06-04 10:24] LABS: ALBUMIN 3.8 g/dl (3.4-5.0); ALK PHOS 144 U/L (45-117); ANION GAP 7 MMOL/L (8-16); BILIRUBIN,TOTAL 0.3 mg/dL (0.2-1); BLOOD UREA NITROGEN 21 mg/dL (7-18); CALCIUM 8.8 mg/dL (8.5-10.1); CHLORIDE 108 mmol/L (98-107); CO2 29 mmol/L (21-32); CREATININE 1.2 mg/dL (0.55-1.3); GLUCOSE,RANDOM 70 mg/dL (74-106); POTASSIUM 3.7 mmol/L (3.5-5.1); SGOT/AST 14 U/L (15-37); SGPT/ALT 15 U/L (13-61); SODIUM 144 mmol/L (136-145); TOT PROT 7.5 g/dl (6.4-8.2)
[2018-06-04] MEDS: amLODIPine BESYLATE 10 MG TABLET (FP) PO SCH (10:34)
[2018-06-04] MEDS: VALSARTAN 160 MG TABLET (UD) PO SCH (10:34)
[2018-06-04] MEDS: PRENATAL VITAMINS W/ FOLIC ACID TABLET (FP) PO SCH (10:34)
--- NOTE | 2018-06-04 16:55 | PN ---
S CIWA - CIWA Score Nausea/Vomitin-No Nausea/No Vomiting Muscle Tremors: None Anxiety: 0-No Anxiety, at Ease Agitation: 1-Slight > Activity Paroxysmal Sweats: 3 Orientation: 0-Oriented Tacttile Disturbances: 2-Mild Itch/Numbness/Burn Auditory Disturbances: 1-Very Mild Visual Disturbances: 2-Mild Sensitivity Headache: 3-Moderate CIWA-Ar Total Score: 12 BHS Progress Note (SOAP) Subjective: Interrupted Sleep, Sweating, H/A. Objective: PATIENT A & O X 3, OBSERVED AMBULATING ON UNIT. IN NO ACUTE DISTRESS. 06/04/18 16:53 Vital Signs Temperature 97.2 F L 06/04/18 13:12 Pulse Rate 63 06/04/18 13:12 Respiratory Rate 16 06/04/18 13:12 Blood Pressure 144/85 06/04/18 13:12 O2 Sat by Pulse Oximetry (%) Laboratory Tests 06/04/18 06/04/18 06/04/18 05:45 05:45 05:45 WBC 6.9 RBC 5.16 Hgb 13.3 Hct 42.6 MCV 82.4 MCH 25.7 MCHC 31.1 L RDW 15.6 Plt Count 313 D MPV 9.5 Sodium 144 Potassium 3.7 Chloride 108 H Carbon Dioxide 29 Anion Gap 7 L BUN 21 H Creatinine 1.2 Creat Clearance w eGFR 46.30 Random Glucose 70 L Calcium 8.8 Total Bilirubin 0.3 AST 14 L ALT 15 Alkaline Phosphatase 144 H Total Protein 7.5 Albumin 3.8 RPR Titer Nonreactive LABS NOTED. Assessment: 06/04/18 16:53 WITHDRAWAL SYMPTOMS. HYPERTENSION. 06/04/18 16:55 Plan: CONTINUE DETOX. D/C IBUPROFEN AND MAGNESIUM-CONTAINING MEDS. FOR ABNORMAL ADMISSION RENAL LAB VALUES.
[2018-06-04] MEDS: THIAMINE HCL 100 MG TABLET (FP) PO SCH (22:13)
[2018-06-05] MEDS: chlordiazePOXIDE HCL 25 MG CAPSULE PO SCH (06:35)
[2018-06-05] MEDS ORDERED: diazePAM 5 MG TABLET PO SCH (10:00)
[2018-06-05] MEDS: VALSARTAN 160 MG TABLET (UD) PO SCH (10:18)
[2018-06-05] MEDS: PRENATAL VITAMINS W/ FOLIC ACID TABLET (FP) PO SCH (10:18)
[2018-06-05] MEDS: chlordiazePOXIDE 5 MG CAPSULE PO SCH ×3 (10:18→22:12)
[2018-06-05] MEDS: amLODIPine BESYLATE 10 MG TABLET (FP) PO SCH (10:18)
--- NOTE | 2018-06-05 15:54 | PN ---
S CIWA - CIWA Score Nausea/Vomitin-No Nausea/No Vomiting Muscle Tremors: None Anxiety: 1-Mildly Anxious Agitation: 0-Normal Activity Paroxysmal Sweats: 3 Orientation: 0-Oriented Tacttile Disturbances: 2-Mild Itch/Numbness/Burn Auditory Disturbances: 0-None Visual Disturbances: 2-Mild Sensitivity Headache: 0-None Present CIWA-Ar Total Score: 8 BHS Progress Note (SOAP) Subjective: Interrupted Sleep, Sweating. Objective: PATIENT A & O X 3, OBSERVED AMBULATING ON UNIT. IN NO ACUTE DISTRESS. 06/05/18 15:53 Vital Signs Temperature 97.0 F L 06/05/18 13:48 Pulse Rate 80 06/05/18 15:49 Respiratory Rate 20 06/05/18 13:48 Blood Pressure 138/77 06/05/18 15:49 O2 Sat by Pulse Oximetry (%) Laboratory Tests 06/04/18 06/04/18 06/04/18 05:45 05:45 05:45 WBC 6.9 RBC 5.16 Hgb 13.3 Hct 42.6 MCV 82.4 MCH 25.7 MCHC 31.1 L RDW 15.6 Plt Count 313 D MPV 9.5 Sodium 144 Potassium 3.7 Chloride 108 H Carbon Dioxide 29 Anion Gap 7 L BUN 21 H Creatinine 1.2 Creat Clearance w eGFR 46.30 Random Glucose 70 L Calcium 8.8 Total Bilirubin 0.3 AST 14 L ALT 15 Alkaline Phosphatase 144 H Total Protein 7.5 Albumin 3.8 RPR Titer Nonreactive LABS NOTED. Assessment: 06/05/18 15:53 WITHDRAWAL SYMPTOMS. Plan: CONTINUE DETOX.
[2018-06-05] MEDS: THIAMINE HCL 100 MG TABLET (FP) PO SCH (22:12)
[2018-06-06] MEDS: chlordiazePOXIDE 5 MG CAPSULE PO SCH (05:15)
[2018-06-06] MEDS: VALSARTAN 160 MG TABLET (UD) PO SCH (10:10)
[2018-06-06] MEDS: amLODIPine BESYLATE 10 MG TABLET (FP) PO SCH (10:10)
[2018-06-06] MEDS: PRENATAL VITAMINS W/ FOLIC ACID TABLET (FP) PO SCH (10:10)
[2018-06-06] MEDS: chlordiazePOXIDE HCL 10 MG CAPSULE PO SCH ×3 (10:10→22:14)
--- NOTE | 2018-06-06 16:47 | PN ---
BHS Progress Note (SOAP) Subjective: Sweating, anxious, interrupted sleep Objective: 06/06/18 16:43 Last Vital Signs Temp Pulse Resp BP Pulse Ox 97.8 F 87 18 161/99 06/06/18 14:18 06/06/18 14:18 06/06/18 14:18 06/06/18 14:18 Uncontrolled htn Laboratory Tests 06/04/18 06/04/18 06/04/18 05:45 05:45 05:45 WBC 6.9 RBC 5.16 Hgb 13.3 Hct 42.6 MCV 82.4 MCH 25.7 MCHC 31.1 L RDW 15.6 Plt Count 313 D MPV 9.5 Sodium 144 Potassium 3.7 Chloride 108 H Carbon Dioxide 29 Anion Gap 7 L BUN 21 H Creatinine 1.2 Creat Clearance w eGFR 46.30 Random Glucose 70 L Calcium 8.8 Total Bilirubin 0.3 AST 14 L ALT 15 Alkaline Phosphatase 144 H Total Protein 7.5 Albumin 3.8 RPR Titer Nonreactive Labs reviewed: SADAF Assessment: 06/06/18 16:43 Withdrawal symptoms Noted with uncontrolled HTN and SADAF Plan: Continue detox Uncontrolled HTN: continue present regimen, follow up with PCP within 1-2 weeks post discharge for management SADAF: encouraged PO water intake, repeat BMP
[2018-06-06] MEDS: THIAMINE HCL 100 MG TABLET (FP) PO SCH (22:14)
[2018-06-07] MEDS: chlordiazePOXIDE HCL 10 MG CAPSULE PO SCH (05:34)
[2018-06-07 06:04] VITALS: TEMP 97.6
[2018-06-07] MEDS: cloNIDine HCL 0.1 MG TABLET PO PRN (06:57)
[2018-06-07 07:33] VITALS: BP 149/96; PULSE 76
--- NOTE | 2018-06-07 08:41 | DS ---
[facility] Detox Discharge Summary Admission Date: 06/03/18 Discharge Date: 06/07/18 - History Present History: Alcohol Dependence Additional Comments: 57 years old female admitted on06/03/18 for alcohol withdrawal stabilization completed detox regimen aftercare [facility] - Physical Exam Results Vital Signs: Vital Signs Temperature 97.6 F 06/07/18 06:03 Pulse Rate 76 06/07/18 07:32 Respiratory Rate 18 06/07/18 06:03 Blood Pressure 149/96 06/07/18 07:32 O2 Sat by Pulse Oximetry (%) Pertinent Admission Physical Exam Findings: alcohol withdrawal sx Laboratory Last Values WBC 6.9 K/mm3 (4.0-10.0) 06/04/18 05:45 RBC 5.16 M/mm3 (3.60-5.2) 06/04/18 05:45 Hgb 13.3 GM/dL (10.7-15.3) 06/04/18 05:45 Hct 42.6 % (32.4-45.2) 06/04/18 05:45 MCV 82.4 fl (80-96) 06/04/18 05:45 MCH 25.7 pg (25.7-33.7) 06/04/18 05:45 MCHC 31.1 g/dl (32.0-36.0) L 06/04/18 05:45 RDW 15.6 % (11.6-15.6) 06/04/18 05:45 Plt Count 313 K/MM3 (134-434) D 06/04/18 05:45 MPV 9.5 fl (7.5-11.1) 06/04/18 05:45 Sodium 145 mmol/L (136-145) 06/07/18 08:15 Potassium 4.4 mmol/L (3.5-5.1) 06/07/18 08:15 Chloride 110 mmol/L (98-107) H 06/07/18 08:15 Carbon Dioxide 28 mmol/L (21-32) 06/07/18 08:15 Anion Gap 7 MMOL/L (8-16) L 06/07/18 08:15 BUN 16 mg/dL (7-18) 06/07/18 08:15 Creatinine 1.1 mg/dL (0.55-1.3) 06/07/18 08:15 Creat Clearance w eGFR 51.20 (>60) 06/07/18 08:15 Random Glucose 88 mg/dL (74-106) 06/07/18 08:15 Calcium 8.9 mg/dL (8.5-10.1) 06/07/18 08:15 Total Bilirubin 0.3 mg/dL (0.2-1) 06/04/18 05:45 AST 14 U/L (15-37) L 06/04/18 05:45 ALT 15 U/L (13-61) 06/04/18 05:45 Alkaline Phosphatase 144 U/L (45-117) H 06/04/18 05:45 Total Protein 7.5 g/dl (6.4-8.2) 06/04/18 05:45 Albumin 3.8 g/dl (3.4-5.0) 06/04/18 05:45 RPR Titer Nonreactive (NONREACTIVE) 06/04/18 05:45 lab noted - Treatment Hospital Course: Detox Protocol Followed, Detoxed Safely, Responded well, Discharged Condition Good, Rehab Referral Accepted Patient has Accepted a Rehab Referral to: [facility] - Medication Discharge Medications: Ambulatory Orders Amlodipine Besylate/Valsartan [Amlodipine-Valsartan 10-320 mg] 1 each PO DAILY # 14 tablet 04/04/18 Albuterol Sulfate Inhaler - [Ventolin HFA Inhaler -] 1 - 2 inh PO Q4H PRN #1 inhaler 06/07/18 - Diagnosis (1) Alcohol dependence with withdrawal Status: Acute Qualifiers: Complication of substance-induced condition: uncomplicated Qualified Code(s ): F10.230 - Alcohol dependence with withdrawal, uncomplicated (2) Asthma Status: Chronic Qualifiers: Asthma severity: mild Asthma persistence: intermittent Asthma complication type: uncomplicated Qualified Code(s): J45.20 - Mild intermittent asthma, uncomplicated (3) Hypertension Status: Chronic Qualifiers: Hypertension type: essential hypertension Qualified Code(s): I10 - Essential (primary) hypertension - AMA Did Patient Leave Against Medical Advice: No
[2018-06-07] MEDS ORDERED: diazePAM 5 MG TABLET PO SCH (10:00)
[2018-06-07 10:26] LABS: ANION GAP 7 MMOL/L (8-16); BLOOD UREA NITROGEN 16 mg/dL (7-18); CALCIUM 8.9 mg/dL (8.5-10.1); CHLORIDE 110 mmol/L (98-107); CO2 28 mmol/L (21-32); CREATININE 1.1 mg/dL (0.55-1.3); GLUCOSE,RANDOM 88 mg/dL (74-106); POTASSIUM 4.4 mmol/L (3.5-5.1); SODIUM 145 mmol/L (136-145)
== END 2018-06-07 09:54 | disposition home or self-care (01) | DRG 774 ==
LOC: YASAS 08:22 → Y3N 10:42
PROC: HZ2ZZZZ Detoxification Services for Substance Abuse Treatment (ICD-10-PCS; principal; 2018-06-03)
DX: F10.230 Alcohol dependence with withdrawal, uncomplicated (principal); F14.20 Cocaine dependence, uncomplicated; F31.9 Bipolar disorder, unspecified; I10 Essential (primary) hypertension; J45.20 Mild intermittent asthma, uncomplicated; N17.9 Acute kidney failure, unspecified; M19.90 Unspecified osteoarthritis, unspecified site; R00.0 Tachycardia, unspecified; R01.1 Cardiac murmur, unspecified; Z85.41 Personal history of malignant neoplasm of cervix uteri; Z90.710 Acquired absence of both cervix and uterus
CPT/HCPCS: 36415; 80048; 80053; 85027; 86593; J0735

== ENCOUNTER 2018-08-11 08:32 | Inpatient (IN) | payer OTHER ==
--- NOTE | 2018-08-11 09:16 | HP ---
CIWA Score Nausea/Vomitin Muscle Tremors: 2 Anxiety: 2 Agitation: 2 Paroxysmal Sweats: 1-Minimal Palms Moist Orientation: 0-Oriented Tacttile Disturbances: 1-Very Mild Itch/Numbness Auditory Disturbances: 1-Very Mild Visual Disturbances: 0-None Headache: 2-Mild CIWA-Ar Total Score: 13 - Admission Criteria OASAS Guidelines: Admission for Medically Managed Detox: Requires at least one of the followin. CIWA greater than 12 2. Seizures within the past 24 hours 3. Delirium tremens within the past 24 hours 4. Hallucinations within the past 24 hours 5. Acute intervention needed for co occurring medical disorder 6. Acute intervention needed for co occurring psychiatric disorder 7. Severe withdrawal that cannot be handled at a lower level of care (continued vomiting, continued diarrhea, abnormal vital signs) requiring intravenous medication and/or fluids 8. Admission ROS S - HPI Chief Complaint: i need help to stop drinking alcohol and cocaine Allergies/Adverse Reactions: Allergies Allergy/AdvReac Type Severity Reaction Status Date / Time No Known Drug Allergies Allergy Verified 08/11/18 09:52 NKA Allergy Uncoded 08/11/18 09:52 History of Present Illness: this 57 years old female with alcohol and cocaine dependene,seeking detox, withdrawal symptoms, multiple admissions in detox,last detox 06/03/18 to 06/07/18 but keep relapsing history of hypertension on med history of insomnia on trazadone 150 mgs po hs longest period of sobriety 3 years asthma on albuterol inhaler plan for outpatient program after detoc - Ebola screening Have you traveled outside of the country in the last 21 days: No Have you had contact with anyone from an Ebola affected area: No Do you have a fever: No - Review of Systems Constitutional: Loss of Appetite, Malaise, Night Sweats, Changes in sleep, Weakness EENT: reports: Nose Congestion Respiratory: reports: Other (asthma) Cardiac: reports: No Symptoms Reported GI: reports: Nausea, Abdominal cramping : reports: No Symptoms Reported Musculoskeletal: reports: Back Pain, Muscle Pain Integumentary: reports: Dryness Neuro: reports: Headache, Tremors Endocrine: reports: No Symptoms Reported Hematology: reports: No Symptoms Reported Psychiatric: reports: No Sypmtoms Reported, Judgement Intact, Mood/Affect Appropiate, Orientated x3, Depressed, other (insomnia) Other Systems: Reviewed and Negative Patient History - Patient Medical History Hx Anemia: No Hx Asthma: Yes (On albuterol) Hx Chronic Obstructive Pulmonary Disease (COPD): No Hx Cancer: Yes (Cervical, 1994, Partial hysterectomy, laser treatment.) Hx Cardiac Disorders: No Hx Congestive Heart Failure: No Hx Hypertension: Yes (On Amlodipine/valsartan 10-320mg) Hx Hypercholesterolemia: No Hx Pacemaker: No HX Cerebrovascular Accident: No Hx Seizures: No Hx Dementia: No Hx Diabetes: No Hx Gastrointestinal Disorders: No Hx Liver Disease: No Hx Genitourinary Disorders: No Hx Sexually Transmitted Disorders: No Hx Renal Disease (ESRD): No Hx Thyroid Disease: No Hx Human Immunodeficiency Virus (HIV): No (Last tested: 06/2017: NEGATIVE.) Hx Hepatitis C: No Hx Depression: Yes ( Not on meds) Hx Suicide Attempt: No (Denies Current HI/SI) Hx Bipolar Disorder: Yes (on trazadone 150 mgs po hs) Hx Schizophrenia: No Other Medical History: no suicidal,no homicidal - Patient Surgical History Past Surgical History: Yes Hx Neurologic Surgery: No Hx Cataract Extraction: Yes (Retinal detachment; LEFT EYE 2009.) Hx Cardiac Surgery: No Hx Lung Surgery: No Hx Breast Surgery: No Hx Breast Biopsy: No Hx Abdominal Surgery: Yes (Ingiunal HERNIA (2); 1995, 1996) Hx Appendectomy: No Hx Cholecystectomy: No Hx Genitourinary Surgery: No Hx Section: No Hx Orthopedic Surgery: No Hx Hysterectomy: Yes (PARTIAL, 1994.) Other Surgical History: CERVICAL CA X 2 1994 PARTIAL HYSTERECTOMY Anesthesia Reaction: No - PPD History Documented Results: Negative w/proof Implanted On Prior [facility] Admission?: Yes Date: 08/22/17 Results: 0mm PPD to be Administered?: No - Reproductive History Patient is a Female of Child Bearing Age (11 -55 yrs old): Yes Last Menstrual Period: 10/22/94 Patient : No - Smoking Cessation Smoking history: Never smoked Have you smoked in the past 12 months: No Cigars Per Day: 0 Hx Chewing Tobacco Use: No - Substance & Tx. History Hx Alcohol Use: Yes Hx Substance Use: Yes Substance Use Type: Alcohol, Cocaine Hx Substance Use Treatment: Yes ([facility] 06/03/18 to 06/07/18) - Substances Abused Alcohol Route: Oral Frequency: Daily Amount used: 1pint of vodka and rum/2 of 12 ozs of beer Age of first use: 18 Date of Last Use: 08/11/18 Cocaine Route: Smoking Frequency: Daily Amount used: 30$ Age of first use: 25 Date of Last Use: 08/11/18 Family Disease History - Family Disease History Family Disease History: CA: Father (PROSTATE; .), Mother (OVARIAN; .), Brother (PROSTATE; .), Sister (BREAST; . ), Other: Grandparent (ARTHRITIS.) Admission Physical Exam [facility] - Vital Signs Vital Signs: Vital Signs Temperature 97.4 F L 08/11/18 09:12 Pulse Rate 51 L 08/11/18 09:12 Respiratory Rate 17 08/11/18 09:12 Blood Pressure 165/93 08/11/18 09:12 O2 Sat by Pulse Oximetry (%) - Physical General Appearance: Yes: Moderate Distress, Tremorous, Irritable, Sweating, Anxious HEENTM: Yes: Normal ENT Inspection, SAMANTHA, Pharynx Normal Respiratory: Yes: Lungs Clear, Normal Breath Sounds, No Respiratory Distress Neck: Yes: Within Normal Limits, Supple, Trachea in good position Breast: Yes: Breast Exam Deferred Cardiology: Yes: Within Normal Limits, Regular Rhythm, Regular Rate, S1, S2 Abdominal: Yes: Within Normal Limits, Normal Bowel Sounds, Non Tender, Flat, Soft Genitourinary: Yes: Within Normal Limits Back: Yes: Muscle Spasm Musculoskeletal: Yes: Back pain, Muscle Pain Extremities: Yes: Tremors Neurological: Yes: Within Normal Limits, applications programmer II-XII NML intact, Alert, Motor Strength 5/5 Integumentary: Yes: Dry Lymphatic: Yes: Within Normal Limits - Diagnostic (1) Alcohol dependence with withdrawal Current Visit: No Status: Acute Qualifiers: Complication of substance-induced condition: uncomplicated Qualified Code(s ): F10.230 - Alcohol dependence with withdrawal, uncomplicated (2) Insomnia secondary to depression with anxiety Current Visit: No Status: Acute (3) Arthritis Current Visit: No Status: Chronic (4) Asthma Current Visit: No Status: Chronic Qualifiers: Asthma severity: mild Asthma persistence: intermittent Asthma complication type: uncomplicated Qualified Code(s): J45.20 - Mild intermittent asthma, uncomplicated (5) Cocaine dependence Current Visit: No Status: Chronic Qualifiers: Substance use status: uncomplicated Qualified Code(s): F14.20 - Cocaine dependence, uncomplicated (6) Hypertension Current Visit: No Status: Chronic Qualifiers: Hypertension type: essential hypertension Qualified Code(s): I10 - Essential (primary) hypertension (7) History of cervical cancer Current Visit: No Status: Resolved (8) History of partial hysterectomy Current Visit: No Status: Resolved Cleared for Admission [facility] - Detox or Rehab S Level of Care: Medically Managed Detox Regimen/Protocol: Librium [facility] Breath Alcohol Content Breath Alcohol Content: 0 Inpatient Rehab Admission - Rehab Decision to Admit Inpatient rehab admission?: No
[2018-08-11 09:24] VITALS: BMI 27.4
[2018-08-11] MEDS ORDERED: ACETAMINOPHEN 325 MG TABLET (FP) PO PRN (09:32)
[2018-08-11] MEDS ORDERED: chlordiazePOXIDE HCL 25 MG CAPSULE PO PRN (09:32)
[2018-08-11] MEDS ORDERED: METHOCARBAMOL 500 MG TABLET PO PRN (09:32)
[2018-08-11] MEDS ORDERED: BISMUTH SUBSALICYLATE 524 MG/30 ML UD PO PRN (09:32)
[2018-08-11] MEDS ORDERED: hydrOXYzine PAMOATE 25 MG CAPSULE (FP) PO PRN (09:32)
[2018-08-11] MEDS ORDERED: MAG HYDROX/AL HYDROX/SIMETH 30 ML UNIT-DOSE CUP PO PRN (09:32)
[2018-08-11] MEDS ORDERED: MELATONIN 5 MG TABLETS PO PRN (09:32)
[2018-08-11] MEDS ORDERED: MAGNESIUM HYDROX 2400MG/30ML ORAL SUSPENSION 30 ML CUP PO PRN (09:32)
[2018-08-11] MEDS ORDERED: MAGNESIUM CITRATE 300 ML BOTTLE PO PRN (09:32)
[2018-08-11] MEDS ORDERED: MENTHOL/PHENOL 1 EACH UD MM PRN (09:32)
[2018-08-11] MEDS ORDERED: ALBUTEROL SO4 8 GM HFA INHALER IH PRN (10:22)
[2018-08-11] MEDS: PRENATAL VITAMINS W/ FOLIC ACID TABLET (FP) PO SCH (11:01)
[2018-08-11] MEDS: chlordiazePOXIDE HCL 25 MG CAPSULE PO SCH ×2 (17:56→22:28)
[2018-08-11] MEDS: THIAMINE HCL 100 MG TABLET (FP) PO SCH (22:28)
[2018-08-11] MEDS: traZODone HCL 50 MG TABLET (FP) PO SCH (22:28)
[2018-08-12] MEDS: chlordiazePOXIDE HCL 25 MG CAPSULE PO SCH ×4 (05:57→22:08)
[2018-08-12] MEDS: IBUPROFEN 400 MG TABLET (FP) PO PRN ×2 (07:12→22:09)
[2018-08-12] MEDS ORDERED: PATIENT'S OWN MEDICATION (NON-FORMULARY) (Amlodipine Besylate/Valsartan [Amlodipine-Valsar PO SCH (10:00)
[2018-08-12] MEDS: PRENATAL VITAMINS W/ FOLIC ACID TABLET (FP) PO SCH (10:15)
[2018-08-12] MEDS: VALSARTAN 160 MG TABLET (UD) PO SCH (10:15)
[2018-08-12] MEDS: amLODIPine BESYLATE 10 MG TABLET (FP) PO SCH (10:15)
[2018-08-12 11:04] LABS: HEMATOCRIT 39.6 % (32.4-45.2); MCHC 32.9 g/dl (32.0-36.0); MEAN CELL VOLUME 82.1 fl (80-96); MEAN PLT VOLUME 9.5 fl (7.5-11.1); PLATELET COUNT 291 K/MM3 (134-434); RBC 4.82 M/mm3 (3.60-5.2); RDW 16.4 % (11.6-15.6)
[2018-08-12 14:14] LABS: BLOOD UREA NITROGEN 16 mg/dL (7-18); GLUCOSE,RANDOM 78 mg/dL (74-106)
[2018-08-12 14:15] LABS: ANION GAP 7 MMOL/L (8-16); CALCIUM 9.1 mg/dL (8.5-10.1); CHLORIDE 107 mmol/L (98-107); CO2 26 mmol/L (21-32); CREATININE 0.9 mg/dL (0.55-1.3); POTASSIUM 3.5 mmol/L (3.5-5.1); SODIUM 140 mmol/L (136-145); TOT PROT 7.5 g/dl (6.4-8.2)
[2018-08-12 14:16] LABS: ALBUMIN 3.6 g/dl (3.4-5.0); ALK PHOS 127 U/L (45-117); BILIRUBIN,TOTAL 0.2 mg/dL (0.2-1); SGOT/AST 9 U/L (15-37); SGPT/ALT 17 U/L (13-61)
[2018-08-12] MEDS: LIDOCAINE 5% TOPICAL PATCH TP SCH (15:02)
--- NOTE | 2018-08-12 15:44 | PN ---
S CIWA - CIWA Score Nausea/Vomitin Muscle Tremors: 2 Anxiety: 3 Agitation: 0-Normal Activity Paroxysmal Sweats: No Perspiration Orientation: 0-Oriented Tacttile Disturbances: 0-None Auditory Disturbances: 2-Mild Harshness/Frighten Visual Disturbances: 2-Mild Sensitivity Headache: 0-None Present CIWA-Ar Total Score: 11 BHS Progress Note (SOAP) Subjective: Tremors, H/A, Anxious, Interrupted Sleep. Objective: PATIENT A & O X 3, OBSERVED AMBULATING ON UNIT. IN NO ACUTE DISTRESS. 08/12/18 15:46 Vital Signs Temperature 98.1 F 08/12/18 14:24 Pulse Rate 91 H 08/12/18 14:24 Respiratory Rate 16 08/12/18 14:24 Blood Pressure 140/84 08/12/18 14:24 O2 Sat by Pulse Oximetry (%) Laboratory Tests 08/12/18 08/12/18 08/12/18 06:30 06:30 06:30 WBC 6.0 RBC 4.82 Hgb 13.0 Hct 39.6 MCV 82.1 MCH 27.0 MCHC 32.9 RDW 16.4 H Plt Count 291 MPV 9.5 Sodium 140 Potassium 3.5 Chloride 107 Carbon Dioxide 26 Anion Gap 7 L BUN 16 Creatinine 0.9 Creat Clearance w eGFR 64.54 Random Glucose 78 Calcium 9.1 Total Bilirubin 0.2 AST 9 L ALT 17 Alkaline Phosphatase 127 H Total Protein 7.5 Albumin 3.6 RPR Titer Nonreactive LABS NOTED. Assessment: 08/12/18 15:46 WITHDRAWAL SYMPTOMS. Plan: CONTINUE DETOX. LIDODERM PATCH FOR LOWER BACK PAIN. PRN ROBAXIN PO FOR BODY ACHES / MUSCLE SPASMS. CONTINUE TO MONITOR BP.
[2018-08-12] MEDS: ACETAMINOPHEN 325 MG TABLET (FP) PO PRN (17:40)
[2018-08-12] MEDS: LIDOCAINE PATCH REMOVAL MC SCH (21:46)
[2018-08-12] MEDS: THIAMINE HCL 100 MG TABLET (FP) PO SCH (22:08)
[2018-08-12] MEDS: traZODone HCL 50 MG TABLET (FP) PO SCH (22:08)
[2018-08-13] MEDS: chlordiazePOXIDE HCL 25 MG CAPSULE PO SCH ×2 (05:55→10:06)
[2018-08-13] MEDS: ACETAMINOPHEN 325 MG TABLET (FP) PO PRN ×2 (05:57→22:19)
[2018-08-13] MEDS: LIDOCAINE 5% TOPICAL PATCH TP SCH (10:05)
[2018-08-13] MEDS: amLODIPine BESYLATE 10 MG TABLET (FP) PO SCH (10:05)
[2018-08-13] MEDS: VALSARTAN 160 MG TABLET (UD) PO SCH (10:05)
[2018-08-13] MEDS: PRENATAL VITAMINS W/ FOLIC ACID TABLET (FP) PO SCH (10:05)
--- NOTE | 2018-08-13 14:23 | PN ---
S CIWA - CIWA Score Nausea/Vomitin-No Nausea/No Vomiting Muscle Tremors: 1-None Visible, but [place] Anxiety: 1-Mildly Anxious Agitation: 1-Slight > Activity Paroxysmal Sweats: No Perspiration Orientation: 0-Oriented Tacttile Disturbances: 0-None Auditory Disturbances: 0-None Visual Disturbances: 0-None Headache: 0-None Present CIWA-Ar Total Score: 3 BHS Progress Note (SOAP) Subjective: pt states she feels better today o: Vital Signs - 24 hr 08/12/18 08/12/18 08/12/18 14:24 17:12 22:18 Temperature 98.1 F 96.6 F L 97.0 F L Pulse Rate 91 H 74 86 Respiratory 16 16 18 Rate Blood Pressure 140/84 122/66 138/75 08/13/18 08/13/18 08/13/18 00:30 06:00 09:23 Temperature 97.9 F 97.3 F L Pulse Rate 90 71 Respiratory 18 18 16 Rate Blood Pressure 129/84 145/92 08/13/18 13:56 Temperature 97.7 F Pulse Rate 79 Respiratory 18 Rate Blood Pressure 137/90 Laboratory Tests 08/12/18 08/12/18 08/12/18 06:30 06:30 06:30 WBC 6.0 RBC 4.82 Hgb 13.0 Hct 39.6 MCV 82.1 MCH 27.0 MCHC 32.9 RDW 16.4 H Plt Count 291 MPV 9.5 Sodium 140 Potassium 3.5 Chloride 107 Carbon Dioxide 26 Anion Gap 7 L BUN 16 Creatinine 0.9 Creat Clearance w eGFR 64.54 Random Glucose 78 Calcium 9.1 Total Bilirubin 0.2 AST 9 L ALT 17 Alkaline Phosphatase 127 H Total Protein 7.5 Albumin 3.6 RPR Titer Nonreactive a/p: continue alcohol detox protocol, pt doing well
[2018-08-13] MEDS ORDERED: chlordiazePOXIDE HCL 10 MG CAPSULE PO PRN (17:00)
[2018-08-13] MEDS: chlordiazePOXIDE HCL 10 MG CAPSULE PO SCH ×2 (17:25→22:15)
[2018-08-13] MEDS: THIAMINE HCL 100 MG TABLET (FP) PO SCH (22:15)
[2018-08-13] MEDS: LIDOCAINE PATCH REMOVAL MC SCH (22:16)
[2018-08-13] MEDS: traZODone HCL 50 MG TABLET (FP) PO SCH (22:16)
[2018-08-14] MEDS: chlordiazePOXIDE HCL 10 MG CAPSULE PO SCH ×3 (06:34→17:41)
[2018-08-14] MEDS: PRENATAL VITAMINS W/ FOLIC ACID TABLET (FP) PO SCH (10:07)
[2018-08-14] MEDS: LIDOCAINE 5% TOPICAL PATCH TP SCH (10:07)
[2018-08-14] MEDS: VALSARTAN 160 MG TABLET (UD) PO SCH (10:07)
[2018-08-14] MEDS: amLODIPine BESYLATE 10 MG TABLET (FP) PO SCH (10:07)
--- NOTE | 2018-08-14 10:46 | PN ---
[facility] Progress Note Note: Vital Signs Temperature 98.0 F 08/14/18 09:37 Pulse Rate 74 08/14/18 09:37 Respiratory Rate 18 08/14/18 09:37 Blood Pressure 135/85 08/14/18 09:37 O2 Sat by Pulse Oximetry (%) Laboratory Last Values WBC 6.0 K/mm3 (4.0-10.0) 08/12/18 06:30 RBC 4.82 M/mm3 (3.60-5.2) 08/12/18 06:30 Hgb 13.0 GM/dL (10.7-15.3) 08/12/18 06:30 Hct 39.6 % (32.4-45.2) 08/12/18 06:30 MCV 82.1 fl (80-96) 08/12/18 06:30 MCH 27.0 pg (25.7-33.7) 08/12/18 06:30 MCHC 32.9 g/dl (32.0-36.0) 08/12/18 06:30 RDW 16.4 % (11.6-15.6) H 08/12/18 06:30 Plt Count 291 K/MM3 (134-434) 08/12/18 06:30 MPV 9.5 fl (7.5-11.1) 08/12/18 06:30 Sodium 140 mmol/L (136-145) 08/12/18 06:30 Potassium 3.5 mmol/L (3.5-5.1) 08/12/18 06:30 Chloride 107 mmol/L (98-107) 08/12/18 06:30 Carbon Dioxide 26 mmol/L (21-32) 08/12/18 06:30 Anion Gap 7 MMOL/L (8-16) L 08/12/18 06:30 BUN 16 mg/dL (7-18) 08/12/18 06:30 Creatinine 0.9 mg/dL (0.55-1.3) 08/12/18 06:30 Creat Clearance w eGFR 64.54 (>60) 08/12/18 06:30 Random Glucose 78 mg/dL (74-106) 08/12/18 06:30 Calcium 9.1 mg/dL (8.5-10.1) 08/12/18 06:30 Total Bilirubin 0.2 mg/dL (0.2-1) 08/12/18 06:30 AST 9 U/L (15-37) L 08/12/18 06:30 ALT 17 U/L (13-61) 08/12/18 06:30 Alkaline Phosphatase 127 U/L (45-117) H 08/12/18 06:30 Total Protein 7.5 g/dl (6.4-8.2) 08/12/18 06:30 Albumin 3.6 g/dl (3.4-5.0) 08/12/18 06:30 RPR Titer Nonreactive (NONREACTIVE) 08/12/18 06:30 c/o low back pain , chills sweats Aox3 no distress + back pain full ROM ambulating in the unit withdrawal sx continue detox increase PO fluids d/c in AM
[2018-08-14] MEDS: traZODone HCL 50 MG TABLET (FP) PO SCH (22:33)
[2018-08-14] MEDS: LIDOCAINE PATCH REMOVAL MC SCH (22:33)
[2018-08-14] MEDS: THIAMINE HCL 100 MG TABLET (FP) PO SCH (22:33)
[2018-08-14] MEDS: IBUPROFEN 400 MG TABLET (FP) PO PRN (22:34)
[2018-08-15] MEDS: chlordiazePOXIDE HCL 10 MG CAPSULE PO SCH (05:55)
[2018-08-15] MEDS: ACETAMINOPHEN 325 MG TABLET (FP) PO PRN (05:59)
[2018-08-15 06:36] VITALS: BP 138/95; PULSE 85; TEMP 97.5
--- NOTE | 2018-08-15 11:15 | DS ---
[facility] Detox Discharge Summary Admission Date: 08/11/18 Discharge Date: 08/15/18 - History Present History: Alcohol Dependence, Cocaine Dependence Additional Comments: Patient completed detox, discharged safely. Patient to follow up with her PCP within 1-2 weeks post discharge. Pertinent Past History: Alcohol dependence Cocaine dependence HTN Insomnia Depression Asthma - Physical Exam Results Vital Signs: Vital Signs Temperature 97.5 F L 08/15/18 06:00 Pulse Rate 85 08/15/18 06:00 Respiratory Rate 18 08/15/18 06:00 Blood Pressure 138/95 08/15/18 06:00 O2 Sat by Pulse Oximetry (%) Pertinent Admission Physical Exam Findings: Withdrawal symptoms Laboratory Tests 08/12/18 08/12/18 08/12/18 06:30 06:30 06:30 WBC 6.0 RBC 4.82 Hgb 13.0 Hct 39.6 MCV 82.1 MCH 27.0 MCHC 32.9 RDW 16.4 H Plt Count 291 MPV 9.5 Sodium 140 Potassium 3.5 Chloride 107 Carbon Dioxide 26 Anion Gap 7 L BUN 16 Creatinine 0.9 Creat Clearance w eGFR 64.54 Random Glucose 78 Calcium 9.1 Total Bilirubin 0.2 AST 9 L ALT 17 Alkaline Phosphatase 127 H Total Protein 7.5 Albumin 3.6 RPR Titer Nonreactive Labs reviewed - Treatment Hospital Course: Detox Protocol Followed, Detoxed Safely, Responded well, Discharged Condition Good - Medication Discharge Medications: Ambulatory Orders Amlodipine Besylate/Valsartan [Amlodipine-Valsartan 10-320 mg] 1 each PO DAILY # 14 tablet 04/04/18 Albuterol Sulfate Inhaler - [Ventolin HFA Inhaler -] 1 - 2 inh PO Q4H PRN #1 inhaler 06/07/18 traZODone HCL [Trazodone HCl] 150 mg PO HS 08/11/18 - Diagnosis (1) Alcohol dependence with withdrawal Status: Acute Qualifiers: Complication of substance-induced condition: uncomplicated Qualified Code(s ): F10.230 - Alcohol dependence with withdrawal, uncomplicated (2) Insomnia Status: Chronic (3) Asthma Status: Chronic Qualifiers: Asthma severity: mild Asthma persistence: intermittent Asthma complication type: uncomplicated Qualified Code(s): J45.20 - Mild intermittent asthma, uncomplicated (4) Cocaine dependence, uncomplicated Status: Chronic (5) Depression Status: Chronic (6) Hypertension Status: Chronic Qualifiers: Hypertension type: essential hypertension Qualified Code(s): I10 - Essential (primary) hypertension - AMA Did Patient Leave Against Medical Advice: No (Follow up with PCP within 1-2 weeks)
== END 2018-08-15 07:00 | disposition home or self-care (01) | DRG 774 ==
LOC: YASAS 08:32 → Y6N 10:00
PROVIDERS: ADMIT Surgery; ATTEND Surgery
PROC: HZ2ZZZZ Detoxification Services for Substance Abuse Treatment (ICD-10-PCS; principal; 2018-08-11)
DX: F10.230 Alcohol dependence with withdrawal, uncomplicated (principal); F14.20 Cocaine dependence, uncomplicated; F31.9 Bipolar disorder, unspecified; F51.05 Insomnia due to other mental disorder; F32.9 Major depressive disorder, single episode, unspecified; I10 Essential (primary) hypertension; J45.20 Mild intermittent asthma, uncomplicated; M54.5 Low back pain; M12.9 Arthropathy, unspecified; Z85.41 Personal history of malignant neoplasm of cervix uteri; Z90.79 Acquired absence of other genital organ(s)
CPT/HCPCS: 36415; 80053; 85027; 86593

== ENCOUNTER 2018-09-17 08:09 | Inpatient (IN) | payer OTHER ==
[2018-09-17 08:32] VITALS: BMI 27.4
--- NOTE | 2018-09-17 09:11 | HP ---
CIWA Score Nausea/Vomitin Muscle Tremors: 2 Anxiety: 2 Agitation: 2 Paroxysmal Sweats: 1-Minimal Palms Moist Orientation: 0-Oriented Tacttile Disturbances: 1-Very Mild Itch/Numbness Auditory Disturbances: 1-Very Mild Visual Disturbances: 0-None Headache: 2-Mild CIWA-Ar Total Score: 13 - Admission Criteria OASAS Guidelines: Admission for Medically Managed Detox: Requires at least one of the followin. CIWA greater than 12 2. Seizures within the past 24 hours 3. Delirium tremens within the past 24 hours 4. Hallucinations within the past 24 hours 5. Acute intervention needed for co occurring medical disorder 6. Acute intervention needed for co occurring psychiatric disorder 7. Severe withdrawal that cannot be handled at a lower level of care (continued vomiting, continued diarrhea, abnormal vital signs) requiring intravenous medication and/or fluids 8. Admission ROS S - HPI Chief Complaint: i need help to stop drinking alcohol and cocaine Allergies/Adverse Reactions: Allergies Allergy/AdvReac Type Severity Reaction Status Date / Time No Known Drug Allergies Allergy Verified 09/17/18 08:21 NKA Allergy Uncoded 09/17/18 08:21 History of Present Illness: this 57 years old female with alcohol dependence also cocaine dependence, seeking detox,withdrawal symptom has been admitted several times but keep relapsing last detox 08/11/18 to 08/05/18 [facility] has been attending out patient program after discharged but fail history of hypertension bipolar disorder ,insomnia, longest period of sobriety for 3 years history of asthma,ca of cervix s/p lap, hysterectomy,retinal detachment left encourage to go to rehab after detox - Ebola screening Have you traveled outside of the country in the last 21 days: No Have you had contact with anyone from an Ebola affected area: No Do you have a fever: No - Review of Systems Constitutional: Loss of Appetite, Malaise, Night Sweats, Changes in sleep, Weakness EENT: reports: Nose Congestion Respiratory: reports: No Symptoms reported Cardiac: reports: No Symptoms Reported GI: reports: Nausea, Abdominal cramping : reports: No Symptoms Reported Musculoskeletal: reports: Back Pain, Muscle Pain Integumentary: reports: Dryness Neuro: reports: Headache, Tremors Endocrine: reports: No Symptoms Reported Hematology: reports: No Symptoms Reported Psychiatric: reports: No Sypmtoms Reported, Judgement Intact, Mood/Affect Appropiate, Orientated x3, other (bipolar disorder) Other Systems: Reviewed and Negative Patient History - Patient Medical History Hx Anemia: No Hx Asthma: Yes (On albuterol) Hx Chronic Obstructive Pulmonary Disease (COPD): No Hx Cancer: Yes (Cervical, 1994, Partial hysterectomy, laser treatment.) Hx Cardiac Disorders: No Hx Congestive Heart Failure: No Hx Hypertension: Yes (On Amlodipine/valsartan 10-320mg) Hx Hypercholesterolemia: No Hx Pacemaker: No HX Cerebrovascular Accident: No Hx Seizures: No Hx Dementia: No Hx Diabetes: No Hx Gastrointestinal Disorders: No Hx Liver Disease: No Hx Genitourinary Disorders: No Hx Sexually Transmitted Disorders: No Hx Renal Disease (ESRD): No Hx Thyroid Disease: No Hx Human Immunodeficiency Virus (HIV): No (07/13 negative) Hx Hepatitis C: No Hx Depression: Yes ( Not on meds) Hx Suicide Attempt: No (Denies Current HI/SI) Hx Bipolar Disorder: Yes (on trazadone 150 mgs po hs) Hx Schizophrenia: No Other Medical History: no suicidal,no homicidal,do not want to see psychiatrist - Patient Surgical History Past Surgical History: Yes Hx Neurologic Surgery: No Hx Cataract Extraction: Yes (Retinal detachment; LEFT EYE 2009.) Hx Cardiac Surgery: No Hx Lung Surgery: No Hx Breast Surgery: No Hx Breast Biopsy: No Hx Abdominal Surgery: Yes (Ingiunal HERNIA (2); 1995, 1996) Hx Appendectomy: No Hx Cholecystectomy: No Hx Genitourinary Surgery: No Hx Section: No Hx Orthopedic Surgery: No Hx Hysterectomy: Yes (PARTIAL, 1994.) Other Surgical History: CERVICAL CA X 2 1994 PARTIAL HYSTERECTOMY Anesthesia Reaction: No - PPD History Previous Implant?: Yes Documented Results: Negative w/o proof Implanted On Prior R Admission?: Yes Date: 08/22/17 Results: 0mm PPD to be Administered?: Yes - Reproductive History Patient is a Female of Child Bearing Age (11 -55 yrs old): No Last Menstrual Period: 10/22/94 Patient : No - Smoking Cessation Smoking history: Never smoked Have you smoked in the past 12 months: No Cigars Per Day: 0 Hx Chewing Tobacco Use: No - Substance & Tx. History Hx Alcohol Use: Yes Hx Substance Use: Yes Substance Use Type: Alcohol, Cocaine Hx Substance Use Treatment: Yes ([facility] 08/11/18 to 08/15/18) - Substances abused Alcohol Substance route: Oral Frequency: Daily Amount used: 2 half a pint of vodka and 2 12 oz of beer Age of first use: 18 Date of last use: 09/17/18 Crack Substance route: Smoking Frequency: Daily Amount used: 30 dollars Age of first use: 25 Date of last use: 09/17/18 Cocaine Substance route: Smoking Frequency: Daily Amount used: 30 dollars Age of first use: 25 Date of last use: 09/17/18 Family Disease History - Family Disease History Family Disease History: CA: Father (PROSTATE; .), Mother (OVARIAN; .), Brother (PROSTATE; .), Sister (BREAST; . ), Other: Grandparent (ARTHRITIS.) [facility] - Vital Signs Vital Signs: Vital Signs - 24 hr 09/17/18 09/17/18 08:21 08:47 Pulse Rate 76 76 Respiratory 20 20 Rate Blood Pressure 157/82 157/82 - Physical General Appearance: Yes: Moderate Distress, Tremorous, Irritable, Sweating, Anxious HEENTM: Yes: Normal ENT Inspection, SAMANTHA, Pharynx Normal Respiratory: Yes: Lungs Clear, Normal Breath Sounds, No Respiratory Distress Neck: Yes: Within Normal Limits, Supple, Trachea in good position Breast: Yes: Breast Exam Deferred Cardiology: Yes: Within Normal Limits, Regular Rhythm, Regular Rate, S1, S2 Abdominal: Yes: Within Normal Limits, Normal Bowel Sounds, Non Tender, Soft, Surgical Scar (lap hysterctomy) Genitourinary: Yes: Within Normal Limits Back: Yes: Muscle Spasm Musculoskeletal: Yes: Back pain, Muscle Pain Extremities: Yes: Within Normal Limits, Normal Range of Motion, Tremors Neurological: Yes: sas administrator II-XII NML intact, Fully Oriented, Alert, Motor Strength 5/5 Integumentary: Yes: Dry Lymphatic: Yes: Within Normal Limits - Diagnostic (1) Alcohol dependence with withdrawal Current Visit: No Status: Acute Qualifiers: Complication of substance-induced condition: uncomplicated Qualified Code(s ): F10.230 - Alcohol dependence with withdrawal, uncomplicated (2) Arthritis Current Visit: No Status: Chronic (3) Asthma Current Visit: No Status: Chronic Qualifiers: Asthma severity: mild Asthma persistence: intermittent Asthma complication type: uncomplicated Qualified Code(s): J45.20 - Mild intermittent asthma, uncomplicated (4) Bipolar disorder Current Visit: No Status: Chronic (5) Chronic back pain Current Visit: No Status: Chronic Qualifiers: Back pain location: low back pain Back pain laterality: unspecified Sciatica presence: without sciatica Qualified Code(s): M54.5 - Low back pain; G89.29 - Other chronic pain (6) Cocaine dependence Current Visit: No Status: Chronic Qualifiers: Substance use status: uncomplicated Qualified Code(s): F14.20 - Cocaine dependence, uncomplicated (7) Hypertension Current Visit: No Status: Chronic Qualifiers: Hypertension type: essential hypertension Qualified Code(s): I10 - Essential (primary) hypertension (8) Insomnia Current Visit: No Status: Chronic (9) Osteoarthritis Current Visit: No Status: Chronic (10) History of cervical cancer Current Visit: No Status: Resolved (11) History of partial hysterectomy Current Visit: No Status: Resolved (12) Weight loss Current Visit: Yes Status: Acute Cleared for Admission S - [facility]ox [facility] Level of Care: Medically Managed Detox Regimen/Protocol: Librium Breathalyzer - Breathalyzer Breathalyzer: 0 POC Urine test - Test device test lot number: [id number] Expiration date: 01/23/20 - Control test control: Yes - Result Urine Test Results: Negative - NO line present Urine Drug Screen - Test Device Lot number: [id number] Expiration date: 04/23/20 - Control Is test valid?: Yes - Results Drug screen NEGATIVE: No Urine drug screen results: MARTIN-Cocaine, BAR-Barbiturates Inpatient Rehab Admission - Rehab Decision to Admit Inpatient rehab admission?: No
[2018-09-17] MEDS ORDERED: ACETAMINOPHEN 325 MG TABLET (FP) PO PRN ×2 (09:24)
[2018-09-17] MEDS ORDERED: chlordiazePOXIDE HCL 25 MG CAPSULE PO PRN (09:24)
[2018-09-17] MEDS ORDERED: MAGNESIUM HYDROX 2400MG/30ML ORAL SUSPENSION 30 ML CUP PO PRN (09:24)
[2018-09-17] MEDS ORDERED: MAG HYDROX/AL HYDROX/SIMETH 30 ML UNIT-DOSE CUP PO PRN (09:24)
[2018-09-17] MEDS ORDERED: hydrOXYzine PAMOATE 25 MG CAPSULE (FP) PO PRN (09:24)
[2018-09-17] MEDS ORDERED: MELATONIN 5 MG TABLETS PO PRN (09:24)
[2018-09-17] MEDS ORDERED: MENTHOL/PHENOL 1 EACH UD MM PRN (09:24)
[2018-09-17] MEDS ORDERED: BISMUTH SUBSALICYLATE 262 MG/15 ML BTL PO PRN (09:24)
[2018-09-17] MEDS ORDERED: MAGNESIUM CITRATE 300 ML BOTTLE PO PRN (09:24)
[2018-09-17] MEDS ORDERED: ALBUTEROL SO4 8 GM HFA INHALER IH PRN (09:26)
[2018-09-17] MEDS: PRENATAL VITAMINS W/ FOLIC ACID TABLET (FP) PO SCH (10:53)
[2018-09-17] MEDS: HYDROCHLOROTHIAZIDE 25 MG TABLET (FP) PO SCH (10:53)
[2018-09-17] MEDS: chlordiazePOXIDE HCL 25 MG CAPSULE PO SCH ×3 (10:53→22:06)
[2018-09-17 12:23] LABS: HEMATOCRIT 39.9 % (32.4-45.2); MCH 26.8 pg (25.7-33.7); MCHC 32.6 g/dl (32.0-36.0); MEAN CELL VOLUME 82.1 fl (80-96); MEAN PLT VOLUME 9.3 fl (7.5-11.1); PLATELET COUNT 304 K/MM3 (134-434); RBC 4.87 M/mm3 (3.60-5.2); RDW 16.6 % (11.6-15.6); WHITE BLOOD COUNT 8.1 K/mm3 (4.0-10.0)
[2018-09-17 12:29] LABS: ALK PHOS 115 U/L (45-117); ANION GAP 7 MMOL/L (8-16); BILIRUBIN,TOTAL 0.4 mg/dL (0.2-1); BLOOD UREA NITROGEN 20 mg/dL (7-18); CALCIUM 9.3 mg/dL (8.5-10.1); CHLORIDE 105 mmol/L (98-107); CO2 28 mmol/L (21-32); CREATININE 1.1 mg/dL (0.55-1.3); GLUCOSE,RANDOM 97 mg/dL (74-106); POTASSIUM 3.5 mmol/L (3.5-5.1); SGOT/AST 13 U/L (15-37); SGPT/ALT 16 U/L (13-61); SODIUM 139 mmol/L (136-145); TOT PROT 7.8 g/dl (6.4-8.2)
[2018-09-17] MEDS: METHOCARBAMOL 500 MG TABLET PO PRN (16:02)
[2018-09-17] MEDS: traZODone HCL 50 MG TABLET (FP) PO SCH (21:37)
[2018-09-17] MEDS: THIAMINE HCL 100 MG TABLET (FP) PO SCH (21:37)
[2018-09-18 00:03] LABS: PH,URINE 5.5 (5.0-8.0); URINE APPEARANCE TURBID; URINE BILIRUBIN NEGATIVE (NEGATIVE); URINE COLOR YELLOW; URINE GLUCOSE (UA) NEGATIVE (NEGATIVE); URINE KETONE TRACE (NEGATIVE); URINE LEUK ESTERASE NEGATIVE (NEGATIVE); URINE NITRITE NEGATIVE (NEGATIVE); URINE PROTEIN NEGATIVE (NEGATIVE)
[2018-09-18] MEDS: chlordiazePOXIDE HCL 25 MG CAPSULE PO SCH ×4 (06:48→22:28)
[2018-09-18] MEDS: PRENATAL VITAMINS W/ FOLIC ACID TABLET (FP) PO SCH (10:22)
[2018-09-18] MEDS: HYDROCHLOROTHIAZIDE 25 MG TABLET (FP) PO SCH (10:22)
[2018-09-18] MEDS: amLODIPine BESYLATE 10 MG TABLET (FP) PO SCH (10:22)
[2018-09-18] MEDS: IBUPROFEN 400 MG TABLET (FP) PO PRN (10:23)
--- NOTE | 2018-09-18 16:11 | PN ---
S CIWA - CIWA Score Nausea/Vomitin Muscle Tremors: 3 Anxiety: 2 Agitation: 1-Slight > Activity Paroxysmal Sweats: No Perspiration Orientation: 0-Oriented Tacttile Disturbances: 2-Mild Itch/Numbness/Burn Auditory Disturbances: 2-Mild Harshness/Frighten Visual Disturbances: 0-None Headache: 0-None Present CIWA-Ar Total Score: 12 BHS Progress Note (SOAP) Subjective: Body Aches, Tremors, Nausea, Anxious. Objective: PATIENT A & O X 3, OBSERVED AMBULATING ON UNIT UNASSISTED. IN NO ACUTE DISTRESS. 09/18/18 16:10 Vital Signs Temperature 96.4 F L 09/18/18 14:22 Pulse Rate 72 09/18/18 14:22 Respiratory Rate 18 09/18/18 14:22 Blood Pressure 126/81 09/18/18 14:22 O2 Sat by Pulse Oximetry (%) Laboratory Tests 09/17/18 09/17/18 09/17/18 09:30 09:30 09:30 WBC 8.1 RBC 4.87 Hgb 13.0 Hct 39.9 MCV 82.1 MCH 26.8 MCHC 32.6 RDW 16.6 H Plt Count 304 MPV 9.3 Sodium 139 Potassium 3.5 Chloride 105 Carbon Dioxide 28 Anion Gap 7 L BUN 20 H Creatinine 1.1 Creat Clearance w eGFR 51.20 Random Glucose 97 Calcium 9.3 Total Bilirubin 0.4 AST 13 L ALT 16 Alkaline Phosphatase 115 Total Protein 7.8 Albumin 4.0 Urine Color Urine Appearance Urine pH Ur Specific [place] Urine Protein Urine Glucose (UA) Urine Ketones Urine Blood Urine Nitrite Urine Bilirubin Urine Urobilinogen Ur Leukocyte Esterase RPR Titer Nonreactive 09/17/18 18:37 WBC RBC Hgb Hct MCV MCH MCHC RDW Plt Count MPV Sodium Potassium Chloride Carbon Dioxide Anion Gap BUN Creatinine Creat Clearance w eGFR Random Glucose Calcium Total Bilirubin AST ALT Alkaline Phosphatase Total Protein Albumin Urine Color Yellow Urine Appearance Turbid Urine pH 5.5 Ur Specific [place] 1.032 Urine Protein Negative Urine Glucose (UA) Negative Urine Ketones Trace H Urine Blood Negative Urine Nitrite Negative Urine Bilirubin Negative Urine Urobilinogen 1.0 Ur Leukocyte Esterase Negative RPR Titer LABS NOTED. Assessment: 09/18/18 16:10 WITHDRAWAL SYMPTOMS. Plan: CONTINUE DETOX. INCREASE DAILY PO FLUID INTAKE. PRN ROBAXIN FOR BODY ACHES / MUSCLE SPASMS. LIDODERM PATCH FOR PAIN IN LEFT HIP.
[2018-09-18] MEDS: LIDOCAINE 5% TOPICAL PATCH TP SCH (17:39)
[2018-09-18] MEDS: THIAMINE HCL 100 MG TABLET (FP) PO SCH (22:28)
[2018-09-18] MEDS: traZODone HCL 50 MG TABLET (FP) PO SCH (22:29)
[2018-09-18] MEDS: METHOCARBAMOL 500 MG TABLET PO PRN (22:32)
[2018-09-19] MEDS: chlordiazePOXIDE HCL 25 MG CAPSULE PO SCH (06:19)
[2018-09-19] MEDS: PRENATAL VITAMINS W/ FOLIC ACID TABLET (FP) PO SCH (10:43)
[2018-09-19] MEDS: HYDROCHLOROTHIAZIDE 25 MG TABLET (FP) PO SCH (10:43)
[2018-09-19] MEDS: chlordiazePOXIDE HCL 10 MG CAPSULE PO SCH ×3 (10:43→22:28)
[2018-09-19] MEDS: amLODIPine BESYLATE 10 MG TABLET (FP) PO SCH (10:43)
[2018-09-19] MEDS: LIDOCAINE 5% TOPICAL PATCH TP SCH (10:44)
[2018-09-19] MEDS: IBUPROFEN 400 MG TABLET (FP) PO PRN (10:47)
[2018-09-19] MEDS ORDERED: chlordiazePOXIDE HCL 10 MG CAPSULE PO PRN (11:00)
--- NOTE | 2018-09-19 12:23 | PN ---
[facility] CIWA - CIWA Score Nausea/Vomitin-Mild Nausea/No Vomiting Muscle Tremors: 2 Anxiety: 2 Agitation: 2 Paroxysmal Sweats: 1-Minimal Palms Moist Orientation: 1-Uncertain about Date Tacttile Disturbances: 0-None Auditory Disturbances: 0-None Visual Disturbances: 0-None Headache: 0-None Present CIWA-Ar Total Score: 9 S Progress Note (SOAP) Subjective: tolerate food and fluid well trouble sleep at night mild tremor otherwise doing ok today Objective: 09/19/18 12:23 Vital Signs Temperature 96.7 F L 09/19/18 09:36 Pulse Rate 74 09/19/18 09:36 Respiratory Rate 20 09/19/18 09:36 Blood Pressure 127/86 09/19/18 09:36 O2 Sat by Pulse Oximetry (%) Laboratory Last Values WBC 8.1 K/mm3 (4.0-10.0) 09/17/18 09:30 RBC 4.87 M/mm3 (3.60-5.2) 09/17/18 09:30 Hgb 13.0 GM/dL (10.7-15.3) 09/17/18 09:30 Hct 39.9 % (32.4-45.2) 09/17/18 09:30 MCV 82.1 fl (80-96) 09/17/18 09:30 MCH 26.8 pg (25.7-33.7) 09/17/18 09:30 MCHC 32.6 g/dl (32.0-36.0) 09/17/18 09:30 RDW 16.6 % (11.6-15.6) H 09/17/18 09:30 Plt Count 304 K/MM3 (134-434) 09/17/18 09:30 MPV 9.3 fl (7.5-11.1) 09/17/18 09:30 Sodium 139 mmol/L (136-145) 09/17/18 09:30 Potassium 3.5 mmol/L (3.5-5.1) 09/17/18 09:30 Chloride 105 mmol/L (98-107) 09/17/18 09:30 Carbon Dioxide 28 mmol/L (21-32) 09/17/18 09:30 Anion Gap 7 MMOL/L (8-16) L 09/17/18 09:30 BUN 20 mg/dL (7-18) H 09/17/18 09:30 Creatinine 1.1 mg/dL (0.55-1.3) 09/17/18 09:30 Creat Clearance w eGFR 51.20 (>60) 09/17/18 09:30 Random Glucose 97 mg/dL (74-106) 09/17/18 09:30 Calcium 9.3 mg/dL (8.5-10.1) 09/17/18 09:30 Total Bilirubin 0.4 mg/dL (0.2-1) 09/17/18 09:30 AST 13 U/L (15-37) L 09/17/18 09:30 ALT 16 U/L (13-61) 09/17/18 09:30 Alkaline Phosphatase 115 U/L (45-117) 09/17/18 09:30 Total Protein 7.8 g/dl (6.4-8.2) 09/17/18 09:30 Albumin 4.0 g/dl (3.4-5.0) 09/17/18 09:30 Urine Color Yellow 09/17/18 18:37 Urine Appearance Turbid 09/17/18 18:37 Urine pH 5.5 (5.0-8.0) 09/17/18 18:37 Ur Specific [place] 1.032 (1.010-1.035) 09/17/18 18:37 Urine Protein Negative (NEGATIVE) 09/17/18 18:37 Urine Glucose (UA) Negative (NEGATIVE) 09/17/18 18:37 Urine Ketones Trace (NEGATIVE) H 09/17/18 18:37 Urine Blood Negative (NEGATIVE) 09/17/18 18:37 Urine Nitrite Negative (NEGATIVE) 09/17/18 18:37 Urine Bilirubin Negative (NEGATIVE) 09/17/18 18:37 Urine Urobilinogen 1.0 mg/dL (0.2-1.0) 09/17/18 18:37 Ur Leukocyte Esterase Negative (NEGATIVE) 09/17/18 18:37 RPR Titer Nonreactive (NONREACTIVE) 09/17/18 09:30 lab noted Assessment: 09/19/18 12:23 alcohol withdrawal sx Plan: continue detox
[2018-09-19] MEDS: THIAMINE HCL 100 MG TABLET (FP) PO SCH (22:28)
[2018-09-19] MEDS: traZODone HCL 50 MG TABLET (FP) PO SCH (22:29)
[2018-09-19] MEDS: LIDOCAINE PATCH REMOVAL MC SCH (22:29)
[2018-09-19] MEDS: METHOCARBAMOL 500 MG TABLET PO PRN (22:31)
[2018-09-20] MEDS: chlordiazePOXIDE HCL 10 MG CAPSULE PO SCH ×3 (06:24→22:30)
[2018-09-20] MEDS: HYDROCHLOROTHIAZIDE 25 MG TABLET (FP) PO SCH (10:31)
[2018-09-20] MEDS: PRENATAL VITAMINS W/ FOLIC ACID TABLET (FP) PO SCH (10:31)
[2018-09-20] MEDS: amLODIPine BESYLATE 10 MG TABLET (FP) PO SCH (10:31)
[2018-09-20] MEDS: METHOCARBAMOL 500 MG TABLET PO PRN ×2 (10:32→22:35)
[2018-09-20] MEDS: LIDOCAINE 5% TOPICAL PATCH TP SCH (11:12)
--- NOTE | 2018-09-20 11:29 | PN ---
S CIWA - CIWA Score Nausea/Vomitin-No Nausea/No Vomiting Muscle Tremors: 2 Anxiety: 1-Mildly Anxious Agitation: 1-Slight > Activity Paroxysmal Sweats: No Perspiration Orientation: 0-Oriented Tacttile Disturbances: 0-None Auditory Disturbances: 0-None Visual Disturbances: 0-None Headache: 0-None Present CIWA-Ar Total Score: 4 BHS Progress Note (SOAP) Subjective: feeling better social with peers in day room discuss aftercare with peers Objective: 09/20/18 11:28 Vital Signs Temperature 97.0 F L 09/20/18 09:05 Pulse Rate 85 09/20/18 09:05 Respiratory Rate 18 09/20/18 09:05 Blood Pressure 150/90 09/20/18 09:05 O2 Sat by Pulse Oximetry (%) Laboratory Last Values WBC 8.1 K/mm3 (4.0-10.0) 09/17/18 09:30 RBC 4.87 M/mm3 (3.60-5.2) 09/17/18 09:30 Hgb 13.0 GM/dL (10.7-15.3) 09/17/18 09:30 Hct 39.9 % (32.4-45.2) 09/17/18 09:30 MCV 82.1 fl (80-96) 09/17/18 09:30 MCH 26.8 pg (25.7-33.7) 09/17/18 09:30 MCHC 32.6 g/dl (32.0-36.0) 09/17/18 09:30 RDW 16.6 % (11.6-15.6) H 09/17/18 09:30 Plt Count 304 K/MM3 (134-434) 09/17/18 09:30 MPV 9.3 fl (7.5-11.1) 09/17/18 09:30 Sodium 139 mmol/L (136-145) 09/17/18 09:30 Potassium 3.5 mmol/L (3.5-5.1) 09/17/18 09:30 Chloride 105 mmol/L (98-107) 09/17/18 09:30 Carbon Dioxide 28 mmol/L (21-32) 09/17/18 09:30 Anion Gap 7 MMOL/L (8-16) L 09/17/18 09:30 BUN 20 mg/dL (7-18) H 09/17/18 09:30 Creatinine 1.1 mg/dL (0.55-1.3) 09/17/18 09:30 Creat Clearance w eGFR 51.20 (>60) 09/17/18 09:30 Random Glucose 97 mg/dL (74-106) 09/17/18 09:30 Calcium 9.3 mg/dL (8.5-10.1) 09/17/18 09:30 Total Bilirubin 0.4 mg/dL (0.2-1) 09/17/18 09:30 AST 13 U/L (15-37) L 09/17/18 09:30 ALT 16 U/L (13-61) 09/17/18 09:30 Alkaline Phosphatase 115 U/L (45-117) 09/17/18 09:30 Total Protein 7.8 g/dl (6.4-8.2) 09/17/18 09:30 Albumin 4.0 g/dl (3.4-5.0) 09/17/18 09:30 Urine Color Yellow 09/17/18 18:37 Urine Appearance Turbid 09/17/18 18:37 Urine pH 5.5 (5.0-8.0) 09/17/18 18:37 Ur Specific [place] 1.032 (1.010-1.035) 09/17/18 18:37 Urine Protein Negative (NEGATIVE) 09/17/18 18:37 Urine Glucose (UA) Negative (NEGATIVE) 09/17/18 18:37 Urine Ketones Trace (NEGATIVE) H 09/17/18 18:37 Urine Blood Negative (NEGATIVE) 09/17/18 18:37 Urine Nitrite Negative (NEGATIVE) 09/17/18 18:37 Urine Bilirubin Negative (NEGATIVE) 09/17/18 18:37 Urine Urobilinogen 1.0 mg/dL (0.2-1.0) 09/17/18 18:37 Ur Leukocyte Esterase Negative (NEGATIVE) 09/17/18 18:37 RPR Titer Nonreactive (NONREACTIVE) 09/17/18 09:30 lab noted Assessment: 09/20/18 11:30 mild alcohol withdrawal sx Plan: continue detox
[2018-09-20] MEDS: THIAMINE HCL 100 MG TABLET (FP) PO SCH (22:29)
[2018-09-20] MEDS: LIDOCAINE PATCH REMOVAL MC SCH (22:29)
[2018-09-20] MEDS: traZODone HCL 50 MG TABLET (FP) PO SCH (22:31)
[2018-09-21 06:29] VITALS: BP 122/80; PULSE 70; TEMP 97.8
[2018-09-21] MEDS: LIDOCAINE 5% TOPICAL PATCH TP SCH (11:04)
[2018-09-21] MEDS: HYDROCHLOROTHIAZIDE 25 MG TABLET (FP) PO SCH (11:04)
[2018-09-21] MEDS: amLODIPine BESYLATE 10 MG TABLET (FP) PO SCH (11:04)
[2018-09-21] MEDS: PRENATAL VITAMINS W/ FOLIC ACID TABLET (FP) PO SCH (11:05)
[2018-09-21] MEDS: chlordiazePOXIDE HCL 10 MG CAPSULE PO SCH (11:52)
--- NOTE | 2018-09-21 13:22 | DS ---
[facility] Detox Discharge Summary Admission Date: 09/17/18 Discharge Date: 09/21/18 - History Present History: Alcohol Dependence Additional Comments: 57 years old female admitted on 09/17/18 for alcohol withdrawal stabilization completed alcohol detox regimen aftercare [facility] out patient facility Pertinent Past History: bring in medication list and lab report to aftercare appointment - Physical Exam Results Vital Signs: Vital Signs Temperature 97.8 F 09/21/18 06:28 Pulse Rate 70 09/21/18 06:28 Respiratory Rate 18 09/21/18 06:28 Blood Pressure 122/80 09/21/18 06:28 O2 Sat by Pulse Oximetry (%) Pertinent Admission Physical Exam Findings: alcohol withdrawal sx Laboratory Last Values WBC 8.1 K/mm3 (4.0-10.0) 09/17/18 09:30 RBC 4.87 M/mm3 (3.60-5.2) 09/17/18 09:30 Hgb 13.0 GM/dL (10.7-15.3) 09/17/18 09:30 Hct 39.9 % (32.4-45.2) 09/17/18 09:30 MCV 82.1 fl (80-96) 09/17/18 09:30 MCH 26.8 pg (25.7-33.7) 09/17/18 09:30 MCHC 32.6 g/dl (32.0-36.0) 09/17/18 09:30 RDW 16.6 % (11.6-15.6) H 09/17/18 09:30 Plt Count 304 K/MM3 (134-434) 09/17/18 09:30 MPV 9.3 fl (7.5-11.1) 09/17/18 09:30 Sodium 139 mmol/L (136-145) 09/17/18 09:30 Potassium 3.5 mmol/L (3.5-5.1) 09/17/18 09:30 Chloride 105 mmol/L (98-107) 09/17/18 09:30 Carbon Dioxide 28 mmol/L (21-32) 09/17/18 09:30 Anion Gap 7 MMOL/L (8-16) L 09/17/18 09:30 BUN 20 mg/dL (7-18) H 09/17/18 09:30 Creatinine 1.1 mg/dL (0.55-1.3) 09/17/18 09:30 Creat Clearance w eGFR 51.20 (>60) 09/17/18 09:30 Random Glucose 97 mg/dL (74-106) 09/17/18 09:30 Calcium 9.3 mg/dL (8.5-10.1) 09/17/18 09:30 Total Bilirubin 0.4 mg/dL (0.2-1) 09/17/18 09:30 AST 13 U/L (15-37) L 09/17/18 09:30 ALT 16 U/L (13-61) 09/17/18 09:30 Alkaline Phosphatase 115 U/L (45-117) 09/17/18 09:30 Total Protein 7.8 g/dl (6.4-8.2) 09/17/18 09:30 Albumin 4.0 g/dl (3.4-5.0) 09/17/18 09:30 Urine Color Yellow 09/17/18 18:37 Urine Appearance Turbid 09/17/18 18:37 Urine pH 5.5 (5.0-8.0) 09/17/18 18:37 Ur Specific [place] 1.032 (1.010-1.035) 09/17/18 18:37 Urine Protein Negative (NEGATIVE) 09/17/18 18:37 Urine Glucose (UA) Negative (NEGATIVE) 09/17/18 18:37 Urine Ketones Trace (NEGATIVE) H 09/17/18 18:37 Urine Blood Negative (NEGATIVE) 09/17/18 18:37 Urine Nitrite Negative (NEGATIVE) 09/17/18 18:37 Urine Bilirubin Negative (NEGATIVE) 09/17/18 18:37 Urine Urobilinogen 1.0 mg/dL (0.2-1.0) 09/17/18 18:37 Ur Leukocyte Esterase Negative (NEGATIVE) 09/17/18 18:37 RPR Titer Nonreactive (NONREACTIVE) 09/17/18 09:30 lab noted - Treatment Hospital Course: Detox Protocol Followed, Detoxed Safely, Responded well, Discharged Condition Good, Rehab Referral Accepted Patient has Accepted a Rehab Referral to: [facility] alcohol rehab out patient - Medication Discharge Medications: Ambulatory Orders Albuterol Sulfate Inhaler - [Ventolin HFA Inhaler -] 1 - 2 inh PO Q4H PRN #1 inhaler 06/07/18 traZODone HCL [Trazodone HCl] 150 mg PO HS 08/11/18 Albuterol Sulfate Inhaler - [Ventolin HFA Inhaler -] 2 puff IH Q4H PRN #1 inhaler 09/20/18 Amlodipine Besylate [Norvasc -] 10 mg PO DAILY #30 tablet 09/20/18 Hydrochlorothiazide [Hctz -] 25 mg PO DAILY #30 tablet 09/20/18 - Diagnosis (1) Alcohol dependence with withdrawal Status: Acute Qualifiers: Complication of substance-induced condition: uncomplicated Qualified Code(s ): F10.230 - Alcohol dependence with withdrawal, uncomplicated (2) Asthma Status: Chronic Qualifiers: Asthma severity: mild Asthma persistence: intermittent Asthma complication type: uncomplicated Qualified Code(s): J45.20 - Mild intermittent asthma, uncomplicated (3) Hypertension Status: Chronic Qualifiers: Hypertension type: essential hypertension Qualified Code(s): I10 - Essential (primary) hypertension - AMA Did Patient Leave Against Medical Advice: No
== END 2018-09-21 08:37 | disposition home or self-care (01) | DRG 774 ==
LOC: YASAS 08:09 → Y3N 09:46
PROVIDERS: ADMIT Surgery; ATTEND Surgery
PROC: HZ2ZZZZ Detoxification Services for Substance Abuse Treatment (ICD-10-PCS; principal; 2018-09-17)
DX: F10.230 Alcohol dependence with withdrawal, uncomplicated (principal); F14.20 Cocaine dependence, uncomplicated; F31.9 Bipolar disorder, unspecified; G47.00 Insomnia, unspecified; I10 Essential (primary) hypertension; J45.20 Mild intermittent asthma, uncomplicated; M19.90 Unspecified osteoarthritis, unspecified site; M54.5 Low back pain; G89.29 Other chronic pain; M62.838 Other muscle spasm; R63.4 Abnormal weight loss; Z68.27 Body mass index [BMI] 27.0-27.9, adult; Z85.41 Personal history of malignant neoplasm of cervix uteri; Z90.710 Acquired absence of both cervix and uterus
CPT/HCPCS: 36415; 80053; 81003; 85027; 86593